=== PATIENT | female | born 1990 | race Caucasian/White ===

== ENCOUNTER 2016-05-10 21:01 | Emergency (ER) | payer MEDICAID ==
[~2016-05-10] VITALS: Ht 182.9 cm; Wt 121.8 kg
[~2016-05-10 21:01] MED LIST: DOXYCYCLINE 10100 MG PO; GOOD SENSE SLEE25 M1 PO; LOPRESSOR 225 MG/TAB; LORTAB 5/500 501 TAB PO; MELATONIN3 M1 PO; NORCO 325 MG-51 TAB PO; PHENERGAN 25 TA25 MG PO; PHENERGAN25 MG RC; PREDNISONE20 MG PO; PRENATAL 19 CH1 EACH PO; PRENATAL MVI PO; PRENATAL1 TA1 PO; VITAMIN B-625 MG PO; XANAX 0.5MG0.5 MG PO; ZOLOFT 50MG50 MG PO
[2016-05-10 21:06] VITALS: TEMP 97.7
[2016-05-10] MEDS ORDERED: NUVARING VAG RING (21:59)
[2016-05-10 22:39] VITALS: BP 138/80; PULSE 89
== END 2016-05-10 22:41 | disposition home or self-care (01) ==
LOC: COL.ER 21:01
DX: G43.909 Migraine, unspecified, not intractable, without status migrainosus (principal)
CPT/HCPCS: J1170; J1885; J2550

== ENCOUNTER 2016-06-13 00:11 | Emergency (ER) | payer MEDICAID ==
[~2016-06-13] VITALS: Ht 182.9 cm; Wt 122.7 kg
[~2016-06-13 00:11] MED LIST changes: +NUVARING VAG RING
[2016-06-13 00:12] VITALS: BP 125/67; TEMP 98
[2016-06-13] MEDS ORDERED: NORCO 325 MG-51 TAB PO (01:19)
[2016-06-13 01:35] VITALS: PULSE 87
== END 2016-06-13 01:37 | disposition home or self-care (01) ==
LOC: COL.ER 00:11
DX: S16.1XXA Strain of muscle, fascia and tendon at neck level, initial encounter (principal); S29.012A Strain of muscle and tendon of back wall of thorax, initial encounter; M25.511 Pain in right shoulder; V43.62XA Car passenger injured in collision with other type car in traffic accident, initial encounter; Y92.410 Unspecified street and highway as the place of occurrence of the external cause; R40.2412 Glasgow coma scale score 13-15, at arrival to emergency department
CPT/HCPCS: J1885; J2360

== ENCOUNTER 2016-08-14 23:34 | Emergency (ER) | payer MEDICAID ==
[~2016-08-14] VITALS: Ht 182.9 cm; Wt 127.3 kg
[2016-08-14 23:36] VITALS: TEMP 98.2
[2016-08-14] MEDS ORDERED: XANAX 0.5MG0.5 MG PO (23:39)
[2016-08-14] MEDS ORDERED: ABILIFY2 MG PO (23:39)
[2016-08-14] MEDS ORDERED: BUSPAR10 MG PO (23:39)
[2016-08-14] MEDS ORDERED: TENORMIN 2525 MG/TAB PO (23:50)
[2016-08-15] MEDS ORDERED: CEPHALEXIN500 M1 PO (00:51)
[2016-08-15 01:20] VITALS: BP 128/78; PULSE 97
== END 2016-08-15 01:21 | disposition home or self-care (01) ==
LOC: COL.ER 23:34
DX: S90.851A Superficial foreign body, right foot, initial encounter (principal); W22.8XXA Striking against or struck by other objects, initial encounter; Y92.008 Other place in unspecified non-institutional (private) residence as the place of occurrence of the external cause; F41.9 Anxiety disorder, unspecified; G43.909 Migraine, unspecified, not intractable, without status migrainosus; F43.10 Post-traumatic stress disorder, unspecified

== ENCOUNTER 2016-09-08 19:36 | Emergency (ER) | payer MEDICAID ==
[~2016-09-08] VITALS: Ht 185.4 cm; Wt 129.5 kg
[~2016-09-08 19:36] MED LIST changes: +ABILIFY2 MG PO; +BUSPAR10 MG PO; +CEPHALEXIN500 M1 PO; +TENORMIN 2525 MG/TAB PO
[2016-09-08 19:38] VITALS: TEMP 99.1
[2016-09-08] MEDS ORDERED: TOPAMAX50 MG PO (19:52)
[2016-09-08 20:13] LABS: MEAN CELL VOLUME 68 fl (80.0-100.0); MEAN CORPUSCULAR HGB CONC 30 g/dl (33.0-37.0); MEAN PLATELET VOLUME 10.7 fl (7.4-10.4); PLATELET COUNT 290 K/mm3 (130-400); RED BLOOD COUNT 4.95 M/mm3 (4.10-5.30); WHITE BLOOD COUNT 10.5 K/mm3 (4.8-10.8)
[2016-09-08 20:20] LABS: HEMATOCRIT 33.6 % (37.0-47.0); HEMOGLOBIN 9.9 g/dl (12.5-16.0); MEAN CORPUSCULAR HEMOGLOBIN 20 pg (27.0-31.0)
[2016-09-08 20:26] LABS: BASO # 0.1 (0.0-0.2); BASO % 0.6 % (0.0-2.0); EOS # 0.2 (0.0-0.7); EOS % 1.7 % (0-4.0); LYMPH # 2.4 (1.2-3.4); LYMPH % 23.3 % (20.0-51.0); MONO # 0.7 (0.1-0.6); MONO % 6.9 % (1.7-9.3)
[2016-09-08 20:28] LABS: ALBUMIN 4.1 gm/dL (3.5-5.0); BILIRUBIN,TOTAL 0.5 mg/dL (0.0-1.0); C-REACTIVE PROTEIN 1.4 mg/dL (0.0-0.9); CALCIUM 9.1 mg/dL (8.4-10.2); CREATININE, serum 0.79 mg/dL (0.52-1.25); POTASSIUM 3.2 mmol/L (3.4-5.0); TOTAL PROTEIN 7.7 gm/dL (6.4-8.2)
[2016-09-08 20:30] LABS: PH 5 (5-8); URINE APPEARANCE Cloudy; URINE BACTERIA None Seen /hpf; URINE BILIRUBIN Negative (NEGATIVE); URINE BLOOD 1+ (NEGATIVE); URINE COLOR Yellow; URINE GLUCOSE Negative (NEGATIVE); URINE KETONE Negative (NEGATIVE); URINE UROBILINOGEN Negative (NEGATIVE)
[2016-09-08] MEDS ORDERED: MACROBID 1100 MG/CAP PO (21:41)
[2016-09-08] MEDS ORDERED: PERCOCET 325 MG1 TA2 PO (21:41)
[2016-09-08 21:51] VITALS: BP 120/81; PULSE 88
== END 2016-09-08 21:52 | disposition home or self-care (01) ==
LOC: COL.ER 19:36
PROVIDERS: Emergency Medicine
DX: R10.32 Left lower quadrant pain (principal); N83.201 Unspecified ovarian cyst, right side; N39.0 Urinary tract infection, site not specified
CPT/HCPCS: J1170; J1885; J2405; J2550; J7030; Q9967

== ENCOUNTER 2016-09-15 17:26 | Emergency (ER) | payer MEDICAID ==
[~2016-09-15] VITALS: Ht 180.3 cm; Wt 127.3 kg
[~2016-09-15 17:26] MED LIST changes: +MACROBID 1100 MG/CAP PO; +PERCOCET 325 MG1 TA2 PO; +TOPAMAX50 MG PO
[2016-09-15 17:32] VITALS: TEMP 98.9
[2016-09-15 18:14] LABS: PH 6 (5-8); URINE APPEARANCE Clear; URINE BACTERIA None Seen /hpf; URINE BILIRUBIN Negative (NEGATIVE); URINE BLOOD 3+ (NEGATIVE); URINE COLOR Yellow; URINE GLUCOSE Negative (NEGATIVE); URINE KETONE Negative (NEGATIVE); URINE RBC >50 /hpf; URINE UROBILINOGEN Negative (NEGATIVE)
[2016-09-15 18:19] LABS: BASO # 0.1 (0.0-0.2); BASO % 0.7 % (0.0-2.0); EOS # 0.1 (0.0-0.7); EOS % 1.5 % (0-4.0); GRAN # 6.1 (1.4-6.5); GRAN % 66.8 % (42.2-75.2); LYMPH # 2.2 (1.2-3.4); LYMPH % 24.3 % (20.0-51.0); MEAN CELL VOLUME 68 fl (80.0-100.0); MEAN CORPUSCULAR HGB CONC 29 g/dl (33.0-37.0); MEAN PLATELET VOLUME 11.3 fl (7.4-10.4); MONO # 0.6 (0.1-0.6); MONO % 6.4 % (1.7-9.3); PLATELET COUNT 305 K/mm3 (130-400); RED BLOOD COUNT 4.82 M/mm3 (4.10-5.30); REDCELL DISTRIBUTION WIDTH-CV 17.4 % (11.5-14.5); WHITE BLOOD COUNT 9.2 K/mm3 (4.8-10.8)
[2016-09-15 18:23] LABS: HEMATOCRIT 32.8 % (37.0-47.0); HEMOGLOBIN 9.6 g/dl (12.5-16.0); MEAN CORPUSCULAR HEMOGLOBIN 20 pg (27.0-31.0)
[2016-09-15] MEDS ORDERED: ABILIFY 10MG TA10 MG PO (18:24)
[2016-09-15] MEDS ORDERED: ABILIFY 15MG TA15 MG PO (18:24)
[2016-09-15] MEDS ORDERED: BUSPAR DIVIDOSE15 MG PO (18:25)
[2016-09-15 18:29] LABS: ADJUSTED CALCIUM 9.3 mg/dL (8.4-10.2); BILIRUBIN,TOTAL 0.4 mg/dL (0.0-1.0); CALCIUM 9.3 mg/dL (8.4-10.2); CREATININE, serum 0.76 mg/dL (0.52-1.25); POTASSIUM 3.7 mmol/L (3.4-5.0); TOTAL PROTEIN 7.6 gm/dL (6.4-8.2)
[2016-09-15] MEDS ORDERED: PERCOCET 325 MG1 TA2 PO (20:25)
[2016-09-15 20:44] VITALS: BP 106/70; PULSE 88
== END 2016-09-15 20:50 | disposition home or self-care (01) ==
LOC: COL.ER 17:26
PROVIDERS: Emergency Medicine; Family Medicine
DX: N83.202 Unspecified ovarian cyst, left side (principal); N83.201 Unspecified ovarian cyst, right side; R10.31 Right lower quadrant pain; M54.5 Low back pain; Z87.59 Personal history of other complications of pregnancy, childbirth and the puerperium; Z87.891 Personal history of nicotine dependence; Z90.10 Acquired absence of unspecified breast and nipple; Z87.440 Personal history of urinary (tract) infections
CPT/HCPCS: J1170; J1885; J2270; J2405; J7030; Q9967

== ENCOUNTER 2016-10-16 15:27 | Emergency (ER) | payer MEDICAID ==
[~2016-10-16] VITALS: Ht 182.9 cm; Wt 127.7 kg
[~2016-10-16 15:27] MED LIST changes: +ABILIFY 10MG TA10 MG PO; +ABILIFY 15MG TA15 MG PO; +BUSPAR DIVIDOSE15 MG PO
[2016-10-16 15:30] VITALS: BP 124/75; TEMP 99.3
[2016-10-16 16:21] LABS: BASO % 0.5 % (0.0-2.0); EOS # 0.1 (0.0-0.7); EOS % 1.5 % (0-4.0); GRAN # 4.3 (1.4-6.5); GRAN % 73.5 % (42.2-75.2); LYMPH % 16.1 % (20.0-51.0); MEAN CELL VOLUME 68 fl (80.0-100.0); MEAN CORPUSCULAR HGB CONC 29 g/dl (33.0-37.0); MEAN PLATELET VOLUME 10.8 fl (7.4-10.4); MONO # 0.3 (0.1-0.6); MONO % 4.7 % (1.7-9.3); PLATELET COUNT 235 K/mm3 (130-400); RED BLOOD COUNT 4.72 M/mm3 (4.10-5.30); REDCELL DISTRIBUTION WIDTH-CV 16.7 % (11.5-14.5); WHITE BLOOD COUNT 5.9 K/mm3 (4.8-10.8)
[2016-10-16 16:24] LABS: HEMOGLOBIN 9.2 g/dl (12.5-16.0); MEAN CORPUSCULAR HEMOGLOBIN 19 pg (27.0-31.0)
[2016-10-16 16:51] LABS: ACETAMINOPHEN < 10 ug/mL (10-30); ALANINE AMINOTRANSFERASE 67 U/L (9-52); ALBUMIN 3.8 gm/dL (3.5-5.0); ALKALINE PHOSPHATASE 103 U/L (50-136); ANION GAP 9 mmol/L (7-16); BILIRUBIN,TOTAL 0.5 mg/dL (0.0-1.0); BLOOD UREA NITROGEN 9 mg/dL (7-17); CALCIUM 8.8 mg/dL (8.4-10.2); CARBON DIOXIDE 27 mmol/L (22-30); CHLORIDE 105 mmol/L (98-107); CREATININE, serum 0.78 mg/dL (0.52-1.25); GLUCOSE 92 mg/dL (74-106); POTASSIUM 3.8 mmol/L (3.4-5.0); SALICYLATE < 1.0 mg/dL; SODIUM 140 mmol/L (137-145); TOTAL PROTEIN 7.2 gm/dL (6.4-8.2)
[2016-10-16 17:01] LABS: AMPHETAMINE URINE NEGATIVE; BARBITURATES URINE NEGATIVE; BENZODIAZEPINES URINE NEGATIVE; BUPRENORPHINE URINE NEGATIVE; METHADONE URINE NEGATIVE; OPIATES URINE NEGATIVE; OXYCODONE URINE NEGATIVE; PHENCYCLIDINE URINE NEGATIVE; PROPOXYPHENE URINE NEGATIVE; THC CANNABINOIDS URINE NEGATIVE
[2016-10-16] MEDS ORDERED: XANAX 0.5MG0.5 MG PO (17:07)
[2016-10-16] MEDS ORDERED: FERROUS SU325 MG/TAB PO (19:43)
[2016-10-16 19:49] VITALS: PULSE 91
== END 2016-10-16 19:50 | disposition home or self-care (01) ==
LOC: COL.ER 15:27
PROVIDERS: Emergency Medicine
DX: R45.851 Suicidal ideations (principal); F32.9 Major depressive disorder, single episode, unspecified

== ENCOUNTER 2016-12-13 19:18 | Emergency (ER) | payer MEDICAID ==
[~2016-12-13] VITALS: Ht 185.4 cm; Wt 123.6 kg
[~2016-12-13 19:18] MED LIST changes: +FERROUS SU325 MG/TAB PO
[2016-12-13 19:19] VITALS: BP 116/61; TEMP 98.4
[2016-12-13 19:49] LABS: PH 8 (5-8); URINE APPEARANCE Hazy; URINE BACTERIA None Seen /hpf; URINE BILIRUBIN Negative (NEGATIVE); URINE BLOOD Negative (NEGATIVE); URINE COLOR Yellow; URINE GLUCOSE Negative (NEGATIVE); URINE KETONE Negative (NEGATIVE); URINE RBC None Seen /hpf; URINE UROBILINOGEN Negative (NEGATIVE)
[2016-12-13 20:01] LABS: BASO # 0.1 (0.0-0.2); BASO % 0.8 % (0.0-2.0); EOS # 0.3 (0.0-0.7); EOS % 3.3 % (0-4.0); GRAN # 5.1 (1.4-6.5); GRAN % 63.2 % (42.2-75.2); LYMPH # 2.1 (1.2-3.4); LYMPH % 25.6 % (20.0-51.0); MEAN CELL VOLUME 72 fl (80.0-100.0); MEAN CORPUSCULAR HGB CONC 29 g/dl (33.0-37.0); MEAN PLATELET VOLUME 11.7 fl (7.4-10.4); MONO # 0.5 (0.1-0.6); MONO % 6.6 % (1.7-9.3); PLATELET COUNT 262 K/mm3 (130-400); RED BLOOD COUNT 4.68 M/mm3 (4.10-5.30); REDCELL DISTRIBUTION WIDTH-CV 17.6 % (11.5-14.5)
[2016-12-13 20:11] LABS: ADJUSTED CALCIUM 9.3 mg/dL (8.4-10.2); ALBUMIN 3.8 gm/dL (3.5-5.0); BILIRUBIN,TOTAL 0.5 mg/dL (0.0-1.0); CALCIUM 9.1 mg/dL (8.4-10.2); CREATININE, serum 0.64 mg/dL (0.52-1.25); POTASSIUM 3.8 mmol/L (3.4-5.0); TOTAL PROTEIN 7.3 gm/dL (6.4-8.2)
[2016-12-13 20:16] LABS: HEMATOCRIT 33.8 % (37.0-47.0); HEMOGLOBIN 9.9 g/dl (12.5-16.0); MEAN CORPUSCULAR HEMOGLOBIN 21 pg (27.0-31.0)
[2016-12-13] MEDS ORDERED: NORCO 325 MG-51 TAB PO (20:56)
[2016-12-13] MEDS ORDERED: OMNICEF 300MG300 MG PO (20:56)
[2016-12-13 21:22] VITALS: PULSE 80
== END 2016-12-13 21:24 | disposition home or self-care (01) ==
LOC: COL.ER 19:18
PROVIDERS: Physician Assistant
DX: N39.0 Urinary tract infection, site not specified (principal); D50.9 Iron deficiency anemia, unspecified; F32.9 Major depressive disorder, single episode, unspecified; F41.9 Anxiety disorder, unspecified; Z87.442 Personal history of urinary calculi
CPT/HCPCS: J1170; J1885; J2550; J7030

== ENCOUNTER 2016-12-17 13:25 | Emergency (ER) | payer MEDICAID ==
[~2016-12-17] VITALS: Ht 182.9 cm; Wt 120.5 kg
[~2016-12-17 13:25] MED LIST changes: +OMNICEF 300MG300 MG PO
[2016-12-17 13:34] VITALS: BP 120/70; PULSE 77; TEMP 98
[2016-12-17 15:15] LABS: BASO # 0.1 (0.0-0.2); BASO % 0.7 % (0.0-2.0); EOS # 0.2 (0.0-0.7); EOS % 2.7 % (0-4.0); GRAN % 68.4 % (42.2-75.2); LYMPH # 1.9 (1.2-3.4); LYMPH % 21.7 % (20.0-51.0); MEAN CELL VOLUME 72 fl (80.0-100.0); MEAN CORPUSCULAR HEMOGLOBIN 21 pg (27.0-31.0); MEAN CORPUSCULAR HGB CONC 29 g/dl (33.0-37.0); MEAN PLATELET VOLUME 10.9 fl (7.4-10.4); MONO # 0.5 (0.1-0.6); MONO % 5.9 % (1.7-9.3); PLATELET COUNT 320 K/mm3 (130-400); RED BLOOD COUNT 5.12 M/mm3 (4.10-5.30); REDCELL DISTRIBUTION WIDTH-CV 17.2 % (11.5-14.5); WHITE BLOOD COUNT 8.8 K/mm3 (4.8-10.8)
[2016-12-17 15:16] LABS: HEMOGLOBIN 10.7 g/dl (12.5-16.0)
[2016-12-17] MEDS ORDERED: ADDERALL20 MG PO (15:20)
[2016-12-17] MEDS ORDERED: PROZAC 20MG20 MG PO (15:20)
[2016-12-17 15:29] LABS: ADJUSTED CALCIUM 9.3 mg/dL (8.4-10.2); ALBUMIN 4.2 gm/dL (3.5-5.0); BILIRUBIN,TOTAL 0.5 mg/dL (0.0-1.0); CALCIUM 9.5 mg/dL (8.4-10.2); CREATININE, serum 0.68 mg/dL (0.52-1.25); PH 6 (5-8); TOTAL PROTEIN 7.8 gm/dL (6.4-8.2); URINE APPEARANCE Clear; URINE BACTERIA None Seen /hpf; URINE BILIRUBIN Negative (NEGATIVE); URINE BLOOD Negative (NEGATIVE); URINE COLOR Yellow; URINE GLUCOSE Negative (NEGATIVE); URINE KETONE Negative (NEGATIVE); URINE RBC 0-2 /hpf; URINE UROBILINOGEN Negative (NEGATIVE); URINE WBC 0-2 /hpf
[2016-12-17] MEDS ORDERED: NAPROXEN 3375 MG/TAB PO (16:49)
[2016-12-17] MEDS ORDERED: FLEXERIL 1010 MG/TAB PO (16:49)
== END 2016-12-17 17:32 | disposition home or self-care (01) ==
LOC: COL.ER 13:25
PROVIDERS: Emergency Medicine
DX: R10.9 Unspecified abdominal pain (principal); Z87.442 Personal history of urinary calculi
CPT/HCPCS: J1170; J1885; J2550; J7030

== ENCOUNTER 2016-12-18 18:53 | Emergency (ER) | payer MEDICAID ==
[~2016-12-18] VITALS: Ht 182.9 cm; Wt 122.7 kg
[~2016-12-18 18:53] MED LIST changes: +ADDERALL20 MG PO; +FLEXERIL 1010 MG/TAB PO; +NAPROXEN 3375 MG/TAB PO; +PROZAC 20MG20 MG PO
[2016-12-18 18:57] VITALS: BP 111/67
[2016-12-18 20:34] VITALS: PULSE 88; TEMP 98
== END 2016-12-18 20:25 | disposition home or self-care (01) ==
LOC: COL.ER 18:53
DX: M54.5 Low back pain (principal); F41.9 Anxiety disorder, unspecified; F43.10 Post-traumatic stress disorder, unspecified; Z98.890 Other specified postprocedural states

== ENCOUNTER 2016-12-25 13:15 | Emergency (ER) | payer MEDICAID ==
[~2016-12-25] VITALS: Ht 182.9 cm; Wt 122.7 kg
[2016-12-25 13:16] VITALS: BP 122/72; PULSE 118; TEMP 98.8
[2016-12-25 13:52] LABS: COLLECTION METHOD CLEAN CATCH
[2016-12-25 14:01] LABS: BASO % 0.4 % (0.0-2.0); EOS # 0.2 (0.0-0.7); EOS % 2.3 % (0-4.0); GRAN # 6.9 (1.4-6.5); GRAN % 72.6 % (42.2-75.2); HEMATOCRIT 37.7 % (37.0-47.0); LYMPH # 1.7 (1.2-3.4); LYMPH % 17.6 % (20.0-51.0); MEAN CELL VOLUME 72 fl (80.0-100.0); MEAN CORPUSCULAR HEMOGLOBIN 21 pg (27.0-31.0); MEAN CORPUSCULAR HGB CONC 29 g/dl (33.0-37.0); MEAN PLATELET VOLUME 10.6 fl (7.4-10.4); MONO # 0.6 (0.1-0.6); MONO % 6.7 % (1.7-9.3); MUCOUS Present /lpf; PH 6 (5-8); PLATELET COUNT 310 K/mm3 (130-400); RED BLOOD COUNT 5.27 M/mm3 (4.10-5.30); SQUAMOUS EPITHELIAL 20-50 /hpf; URINE APPEARANCE Hazy; URINE BACTERIA Rare /hpf; URINE BILIRUBIN Negative (NEGATIVE); URINE BLOOD Negative (NEGATIVE); URINE COLOR Yellow; URINE GLUCOSE Negative (NEGATIVE); URINE KETONE Negative (NEGATIVE); URINE LEUKOCYTE ESTERASE Trace (NEGATIVE); URINE PROTEIN(semi-quant) 1+ (NEGATIVE); URINE RBC 0-2 /hpf; URINE UROBILINOGEN Negative (NEGATIVE); URINE WBC 0-2 /hpf; WHITE BLOOD COUNT 9.6 K/mm3 (4.8-10.8)
[2016-12-25 14:04] LABS: HEMOGLOBIN 11.1 g/dl (12.5-16.0)
[2016-12-25 14:17] LABS: ADJUSTED CALCIUM 8.9 mg/dL (8.4-10.2); ALBUMIN 4.2 gm/dL (3.5-5.0); BILIRUBIN,TOTAL 0.6 mg/dL (0.0-1.0); C-REACTIVE PROTEIN 1.7 mg/dL (0.0-0.9); CALCIUM 9.1 mg/dL (8.4-10.2); CREATININE, serum 0.64 mg/dL (0.52-1.25); POTASSIUM 3.9 mmol/L (3.4-5.0); TOTAL PROTEIN 8.1 gm/dL (6.4-8.2)
== END 2016-12-25 15:11 | disposition left against medical advice (07) ==
LOC: COL.ER 13:15
PROVIDERS: Emergency Medicine
DX: R10.31 Right lower quadrant pain (principal); F17.210 Nicotine dependence, cigarettes, uncomplicated; Z87.442 Personal history of urinary calculi; Z32.02 Encounter for pregnancy test, result negative
CPT/HCPCS: J1200; J1630; J2550; J7030

== ENCOUNTER 2016-12-26 09:31 | Emergency (ER) | payer MEDICAID ==
[~2016-12-26] VITALS: Ht 182.9 cm; Wt 122.7 kg
[2016-12-26 09:34] VITALS: BP 118/64; TEMP 97.5
[2016-12-26 10:15] LABS: BASO % 0.3 % (0.0-2.0); EOS # 0.1 (0.0-0.7); EOS % 1.3 % (0-4.0); GRAN # 6.2 (1.4-6.5); GRAN % 79.6 % (42.2-75.2); LYMPH # 0.9 (1.2-3.4); LYMPH % 10.9 % (20.0-51.0); MEAN CELL VOLUME 72 fl (80.0-100.0); MEAN CORPUSCULAR HGB CONC 30 g/dl (33.0-37.0); MEAN PLATELET VOLUME 11.1 fl (7.4-10.4); MONO # 0.6 (0.1-0.6); MONO % 7.3 % (1.7-9.3); PLATELET COUNT 293 K/mm3 (130-400); RED BLOOD COUNT 5.15 M/mm3 (4.10-5.30); WHITE BLOOD COUNT 7.8 K/mm3 (4.8-10.8)
[2016-12-26 10:16] LABS: HEMATOCRIT 36.8 % (37.0-47.0); HEMOGLOBIN 10.9 g/dl (12.5-16.0); MEAN CORPUSCULAR HEMOGLOBIN 21 pg (27.0-31.0)
[2016-12-26 10:21] LABS: ADJUSTED CALCIUM 8.8 mg/dL (8.4-10.2); BILIRUBIN,TOTAL 0.9 mg/dL (0.0-1.0); CALCIUM 8.8 mg/dL (8.4-10.2); CREATININE, serum 0.63 mg/dL (0.52-1.25); TOTAL PROTEIN 7.6 gm/dL (6.4-8.2)
[2016-12-26 13:42] VITALS: PULSE 122
== END 2016-12-26 13:41 | disposition home or self-care (01) ==
LOC: COL.ER 09:31
PROVIDERS: Physician Assistant
DX: N83.202 Unspecified ovarian cyst, left side (principal); N83.201 Unspecified ovarian cyst, right side; F41.9 Anxiety disorder, unspecified; F43.10 Post-traumatic stress disorder, unspecified; F17.210 Nicotine dependence, cigarettes, uncomplicated; Z98.890 Other specified postprocedural states
CPT/HCPCS: J1200; J1630; J2270; J7030

== ENCOUNTER 2017-01-30 19:31 | Emergency (ER) | payer MEDICAID ==
[~2017-01-30] VITALS: Ht 185.4 cm; Wt 131.8 kg
[2017-01-30 19:39] VITALS: TEMP 98.3
[2017-01-30 21:03] VITALS: BP 121/87; PULSE 74
== END 2017-01-30 21:20 | disposition home or self-care (01) ==
LOC: COL.ER 19:31
DX: G43.909 Migraine, unspecified, not intractable, without status migrainosus (principal); F41.9 Anxiety disorder, unspecified; F43.10 Post-traumatic stress disorder, unspecified; F17.210 Nicotine dependence, cigarettes, uncomplicated; Z98.890 Other specified postprocedural states
CPT/HCPCS: J1200; J1885; J2765; J7030

== ENCOUNTER 2017-03-02 20:09 | Emergency (ER) | payer MEDICAID ==
[~2017-03-02] VITALS: Ht 182.9 cm; Wt 131.8 kg
[2017-03-02 20:11] VITALS: TEMP 98.4
[2017-03-02] MEDS ORDERED: XANAX 1MG1 MG PO (20:17)
[2017-03-02] MEDS ORDERED: AMBIEN 5MG TABLE5 MG PO (20:17)
[2017-03-02 20:41] LABS: BASO # 0.1 (0.0-0.2); BASO % 0.7 % (0.0-2.0); EOS # 0.2 (0.0-0.7); EOS % 2.2 % (0-4.0); GRAN # 5.1 (1.4-6.5); GRAN % 62.1 % (42.2-75.2); LYMPH # 2.4 (1.2-3.4); LYMPH % 28.7 % (20.0-51.0); MEAN CORPUSCULAR HGB CONC 28 g/dl (33.0-37.0); MEAN PLATELET VOLUME 10.6 fl (7.4-10.4); MONO # 0.5 (0.1-0.6); MONO % 5.8 % (1.7-9.3); PLATELET COUNT 253 K/mm3 (130-400); RED BLOOD COUNT 4.89 M/mm3 (4.10-5.30); REDCELL DISTRIBUTION WIDTH-CV 18.2 % (11.5-14.5)
[2017-03-02 20:43] LABS: HEMATOCRIT 33.9 % (37.0-47.0); HEMOGLOBIN 9.6 g/dl (12.5-16.0); MEAN CELL VOLUME 69 fl (80.0-100.0); MEAN CORPUSCULAR HEMOGLOBIN 20 pg (27.0-31.0)
[2017-03-02 20:52] LABS: ACETAMINOPHEN < 10 ug/mL (10-30); ALANINE AMINOTRANSFERASE 48 U/L (9-52); ALBUMIN 4.3 gm/dL (3.5-5.0); ALCOHOL(ethanol),MEDICAL < 10 mg/dL; ALKALINE PHOSPHATASE 132 U/L (50-136); ANION GAP 10 mmol/L (7-16); AST,SGOT 28 U/L (15-37); BILIRUBIN,TOTAL 0.3 mg/dL (0.0-1.0); BLOOD UREA NITROGEN 14 mg/dL (7-17); CALCIUM 9.5 mg/dL (8.4-10.2); CARBON DIOXIDE 28 mmol/L (22-30); CHLORIDE 103 mmol/L (98-107); CREATININE, serum 0.88 mg/dL (0.52-1.25); GLUCOSE 95 mg/dL (74-106); LIPASE 61 U/L (23-300); POTASSIUM 3.6 mmol/L (3.4-5.0); SALICYLATE < 1.0 mg/dL; SODIUM 140 mmol/L (137-145); TOTAL PROTEIN 7.8 gm/dL (6.4-8.2)
[2017-03-02] MEDS ORDERED: NAPROXEN 3375 MG/TAB PO (20:52)
[2017-03-02 21:00] LABS: COLLECTION METHOD CLEAN CATCH
[2017-03-02 21:19] LABS: MUCOUS Present /lpf; PH 6 (5-8); SQUAMOUS EPITHELIAL 20-50 /hpf; URINE APPEARANCE Hazy; URINE BACTERIA Rare /hpf; URINE BILIRUBIN Negative (NEGATIVE); URINE BLOOD Negative (NEGATIVE); URINE COLOR Yellow; URINE GLUCOSE Negative (NEGATIVE); URINE KETONE Negative (NEGATIVE); URINE LEUKOCYTE ESTERASE 2+ (NEGATIVE); URINE NITRATE Negative (NEGATIVE); URINE PROTEIN(semi-quant) 1+ (NEGATIVE); URINE RBC 0-2 /hpf; URINE UROBILINOGEN >=4.0 mg/dL (NEGATIVE)
[2017-03-02 21:25] LABS: TRICYCLIC ANTIDEPRESS URINE NEGATIVE
[2017-03-03 13:42] VITALS: BP 107/56; PULSE 90
== END 2017-03-03 14:32 | disposition short-term general hospital (02) ==
LOC: COL.ER 20:09
PROVIDERS: Emergency Medicine
DX: T42.4X2A Poisoning by benzodiazepines, intentional self-harm, initial encounter (principal); T39.312A Poisoning by propionic acid derivatives, intentional self-harm, initial encounter; F32.9 Major depressive disorder, single episode, unspecified; F43.10 Post-traumatic stress disorder, unspecified; F17.210 Nicotine dependence, cigarettes, uncomplicated
CPT/HCPCS: J2405; J2550; J7030

== ENCOUNTER 2017-03-09 08:40 | Emergency (ER) | payer MEDICAID ==
[~2017-03-09] VITALS: Ht 182.9 cm; Wt 131.8 kg
[~2017-03-09 08:40] MED LIST changes: +AMBIEN 5MG TABLE5 MG PO; +XANAX 1MG1 MG PO
[2017-03-09 08:50] VITALS: TEMP 98.3
[2017-03-09 10:34] VITALS: BP 118/85; PULSE 92
== END 2017-03-09 10:34 | disposition home or self-care (01) ==
LOC: COL.ER 08:40
DX: O99.351 Diseases of the nervous system complicating pregnancy, first trimester (principal); G43.909 Migraine, unspecified, not intractable, without status migrainosus; O99.341 Other mental disorders complicating pregnancy, first trimester; F32.9 Major depressive disorder, single episode, unspecified; Z3A.00 Weeks of gestation of pregnancy not specified
CPT/HCPCS: J1200; J2765; J7030

== ENCOUNTER 2017-03-18 12:30 | Emergency (ER) | payer MEDICAID ==
[~2017-03-18] VITALS: Ht 182.9 cm; Wt 131.8 kg
[2017-03-18 12:32] VITALS: TEMP 99.1
[2017-03-18 13:00] LABS: COLLECTION METHOD CLEAN CATCH
[2017-03-18 13:06] LABS: BASO # 0.1 (0.0-0.2); BASO % 0.9 % (0.0-2.0); EOS # 0.2 (0.0-0.7); EOS % 2.7 % (0-4.0); GRAN # 4.5 (1.4-6.5); GRAN % 64.5 % (42.2-75.2); HEMATOCRIT 35.6 % (37.0-47.0); HEMOGLOBIN 10.2 g/dl (12.5-16.0); LYMPH # 1.9 (1.2-3.4); LYMPH % 26.7 % (20.0-51.0); MEAN CELL VOLUME 69 fl (80.0-100.0); MEAN CORPUSCULAR HEMOGLOBIN 20 pg (27.0-31.0); MEAN CORPUSCULAR HGB CONC 29 g/dl (33.0-37.0); MEAN PLATELET VOLUME 10.8 fl (7.4-10.4); MONO # 0.3 (0.1-0.6); MONO % 4.8 % (1.7-9.3); PLATELET COUNT 306 K/mm3 (130-400); REDCELL DISTRIBUTION WIDTH-CV 18.8 % (11.5-14.5)
[2017-03-18 13:08] LABS: MUCOUS Present /lpf; PH 6 (5-8); URINE APPEARANCE Hazy; URINE BACTERIA None Seen /hpf; URINE BILIRUBIN Negative (NEGATIVE); URINE BLOOD Negative (NEGATIVE); URINE COLOR Yellow; URINE GLUCOSE Negative (NEGATIVE); URINE KETONE Negative (NEGATIVE); URINE LEUKOCYTE ESTERASE Trace (NEGATIVE); URINE NITRATE Negative (NEGATIVE); URINE PROTEIN(semi-quant) Negative (NEGATIVE); URINE RBC 0-2 /hpf
[2017-03-18 13:17] LABS: ALBUMIN 3.9 gm/dL (3.5-5.0); BILIRUBIN,TOTAL 0.5 mg/dL (0.0-1.0); CALCIUM 8.7 mg/dL (8.4-10.2); CREATININE, serum 0.57 mg/dL (0.52-1.25); POTASSIUM 3.5 mmol/L (3.4-5.0); TOTAL PROTEIN 7.2 gm/dL (6.4-8.2)
[2017-03-18] MEDS ORDERED: PHENERGAN 25 TA25 MG PO (13:57)
[2017-03-18 14:07] VITALS: BP 133/68; PULSE 88
== END 2017-03-18 14:07 | disposition home or self-care (01) ==
LOC: COL.ER 12:30
PROVIDERS: Family Medicine
DX: O21.9 Vomiting of pregnancy, unspecified (principal); O99.351 Diseases of the nervous system complicating pregnancy, first trimester; G43.909 Migraine, unspecified, not intractable, without status migrainosus; O99.341 Other mental disorders complicating pregnancy, first trimester; F32.9 Major depressive disorder, single episode, unspecified; Z3A.00 Weeks of gestation of pregnancy not specified
CPT/HCPCS: J7030

== ENCOUNTER 2017-03-23 22:54 | Emergency (ER) | payer MEDICAID ==
[~2017-03-23] VITALS: Ht 185.4 cm; Wt 136.4 kg
[2017-03-23 23:02] VITALS: TEMP 98.3
[2017-03-23] MEDS ORDERED: PROZAC40 MG PO (23:06)
[2017-03-23 23:41] LABS: COLLECTION METHOD CLEAN CATCH
[2017-03-23 23:48] LABS: BASO % 0.5 % (0.0-2.0); EOS # 0.3 (0.0-0.7); EOS % 3.4 % (0-4.0); GRAN # 5.4 (1.4-6.5); GRAN % 65.1 % (42.2-75.2); LYMPH # 1.9 (1.2-3.4); MEAN CELL VOLUME 68 fl (80.0-100.0); MEAN CORPUSCULAR HGB CONC 29 g/dl (33.0-37.0); MEAN PLATELET VOLUME 10.8 fl (7.4-10.4); MONO # 0.6 (0.1-0.6); MONO % 7.5 % (1.7-9.3); PLATELET COUNT 269 K/mm3 (130-400); RED BLOOD COUNT 4.68 M/mm3 (4.10-5.30); REDCELL DISTRIBUTION WIDTH-CV 18.6 % (11.5-14.5)
[2017-03-23 23:49] LABS: ALBUMIN 3.6 gm/dL (3.5-5.0); BILIRUBIN,TOTAL 0.3 mg/dL (0.0-1.0); CALCIUM 8.6 mg/dL (8.4-10.2); CREATININE, serum 0.53 mg/dL (0.52-1.25); POTASSIUM 3.4 mmol/L (3.4-5.0); TOTAL PROTEIN 6.9 gm/dL (6.4-8.2)
[2017-03-23 23:50] LABS: HEMOGLOBIN 9.3 g/dl (12.5-16.0); MEAN CORPUSCULAR HEMOGLOBIN 20 pg (27.0-31.0)
[2017-03-23 23:51] LABS: PH 6 (5-8); SQUAMOUS EPITHELIAL 0-2 /hpf; URINE APPEARANCE Clear; URINE BACTERIA None Seen /hpf; URINE BILIRUBIN Negative (NEGATIVE); URINE BLOOD Negative (NEGATIVE); URINE COLOR Yellow; URINE GLUCOSE Negative (NEGATIVE); URINE KETONE Negative (NEGATIVE); URINE LEUKOCYTE ESTERASE Negative (NEGATIVE); URINE NITRATE Negative (NEGATIVE); URINE PROTEIN(semi-quant) Negative (NEGATIVE); URINE RBC 0-2 /hpf; URINE UROBILINOGEN Negative (NEGATIVE)
[2017-03-24] LABS: INFLUENZA A NEGATIVE; INFLUENZA B NEGATIVE
[2017-03-24] MEDS ORDERED: PHENERGAN 25 TA25 MG PO (01:59)
[2017-03-24] MEDS ORDERED: TAMIFLU 75MG75 MG PO (02:36)
[2017-03-24 02:52] VITALS: BP 119/76; PULSE 100
[2017-03-24] MEDS ORDERED: DICLEGIS PO (03:03)
== END 2017-03-24 03:11 | disposition home or self-care (01) ==
LOC: COL.ER 22:54
PROVIDERS: Emergency Medicine
DX: O20.0 Threatened abortion (principal); O99.011 Anemia complicating pregnancy, first trimester; Z3A.01 Less than 8 weeks gestation of pregnancy
CPT/HCPCS: J2550; J7030

== ENCOUNTER 2017-04-11 18:13 | Emergency (ER) | payer MEDICAID ==
[~2017-04-11] VITALS: Ht 185.4 cm; Wt 121.8 kg
[~2017-04-11 18:13] MED LIST changes: +DICLEGIS PO; +PROZAC40 MG PO; +TAMIFLU 75MG75 MG PO
[2017-04-11 18:20] VITALS: TEMP 98.6
[2017-04-11 19:02] LABS: COLLECTION METHOD CLEAN CATCH
[2017-04-11 19:09] LABS: BASO % 0.3 % (0.0-2.0); EOS # 0.1 (0.0-0.7); EOS % 1.1 % (0-4.0); GRAN # 7.6 (1.4-6.5); GRAN % 75.1 % (42.2-75.2); LYMPH # 1.8 (1.2-3.4); LYMPH % 17.4 % (20.0-51.0); MEAN CELL VOLUME 68 fl (80.0-100.0); MEAN CORPUSCULAR HGB CONC 29 g/dl (33.0-37.0); MEAN PLATELET VOLUME 11.3 fl (7.4-10.4); MONO # 0.6 (0.1-0.6); MONO % 5.6 % (1.7-9.3); PLATELET COUNT 322 K/mm3 (130-400); RED BLOOD COUNT 5.25 M/mm3 (4.10-5.30); REDCELL DISTRIBUTION WIDTH-CV 18.9 % (11.5-14.5)
[2017-04-11 19:10] LABS: HEMATOCRIT 35.9 % (37.0-47.0); HEMOGLOBIN 10.3 g/dl (12.5-16.0); MEAN CORPUSCULAR HEMOGLOBIN 20 pg (27.0-31.0)
[2017-04-11] MEDS ORDERED: ZOFRAN 4MG T4 MG/TAB PO (19:14)
[2017-04-11 19:17] LABS: BILIRUBIN,TOTAL 0.4 mg/dL (0.0-1.0); CALCIUM 9.6 mg/dL (8.4-10.2); CREATININE, serum 0.66 mg/dL (0.52-1.25); POTASSIUM 3.8 mmol/L (3.4-5.0); TOTAL PROTEIN 7.7 gm/dL (6.4-8.2)
[2017-04-11 19:19] VITALS: BP 122/76
[2017-04-11 19:27] LABS: MUCOUS Present /lpf; PH 6 (5-8); URINE APPEARANCE Clear; URINE BACTERIA Rare /hpf; URINE BILIRUBIN Negative (NEGATIVE); URINE BLOOD Negative (NEGATIVE); URINE COLOR Yellow; URINE GLUCOSE Negative (NEGATIVE); URINE KETONE Negative (NEGATIVE); URINE LEUKOCYTE ESTERASE Negative (NEGATIVE); URINE NITRATE Negative (NEGATIVE); URINE PROTEIN(semi-quant) Negative (NEGATIVE); URINE RBC 0-2 /hpf
[2017-04-11 19:56] VITALS: PULSE 96
== END 2017-04-11 20:07 | disposition home or self-care (01) ==
LOC: COL.ER 18:13
PROVIDERS: Emergency Medicine
DX: O9A.211 Injury, poisoning and certain other consequences of external causes complicating pregnancy, first trimester (principal); S00.93XA Contusion of unspecified part of head, initial encounter; R40.2412 Glasgow coma scale score 13-15, at arrival to emergency department; Z3A.08 8 weeks gestation of pregnancy; W10.9XXA Fall (on) (from) unspecified stairs and steps, initial encounter; Y92.009 Unspecified place in unspecified non-institutional (private) residence as the place of occurrence of the external cause
CPT/HCPCS: J7030

== ENCOUNTER 2017-04-20 19:38 | Emergency (ER) | payer MEDICAID ==
[~2017-04-20] VITALS: Ht 182.9 cm; Wt 127.3 kg
[~2017-04-20 19:38] MED LIST changes: +ZOFRAN 4MG T4 MG/TAB PO
[2017-04-20 19:44] VITALS: BP 119/72; TEMP 98.6
[2017-04-20] MEDS ORDERED: PRENATAL PO (19:49)
[2017-04-20 21:06] VITALS: PULSE 95
== END 2017-04-20 21:08 | disposition home or self-care (01) ==
LOC: COL.ER 19:38
DX: O26.891 Other specified pregnancy related conditions, first trimester (principal); R10.2 Pelvic and perineal pain; O99.341 Other mental disorders complicating pregnancy, first trimester; F43.10 Post-traumatic stress disorder, unspecified; F32.9 Major depressive disorder, single episode, unspecified; Z98.890 Other specified postprocedural states; Z87.891 Personal history of nicotine dependence; Z3A.10 10 weeks gestation of pregnancy

== ENCOUNTER 2017-05-27 19:27 | Emergency (ER) | payer MEDICAID ==
[~2017-05-27] VITALS: Ht 182.9 cm; Wt 131.8 kg
[~2017-05-27 19:27] MED LIST changes: +PRENATAL PO
[2017-05-27 19:28] VITALS: TEMP 98
[2017-05-27 19:57] VITALS: BP 128/69; PULSE 92
== END 2017-05-27 20:04 | disposition home or self-care (01) ==
LOC: COL.ER 19:27
DX: O20.0 Threatened abortion (principal); O99.332 Smoking (tobacco) complicating pregnancy, second trimester; O99.342 Other mental disorders complicating pregnancy, second trimester; O99.352 Diseases of the nervous system complicating pregnancy, second trimester; G43.909 Migraine, unspecified, not intractable, without status migrainosus; F32.9 Major depressive disorder, single episode, unspecified; F43.10 Post-traumatic stress disorder, unspecified; Z3A.15 15 weeks gestation of pregnancy

== ENCOUNTER 2017-05-30 18:34 | Emergency (ER) | payer MEDICAID ==
[~2017-05-30] VITALS: Ht 182.9 cm; Wt 130.0 kg
[2017-05-30 18:38] VITALS: BP 131/76; PULSE 105; TEMP 98
[2017-05-30] MEDS ORDERED: FLAGYL500 MG PO (20:16)
== END 2017-05-30 20:33 | disposition home or self-care (01) ==
LOC: COL.ER 18:34
DX: O23.592 Infection of other part of genital tract in pregnancy, second trimester (principal); N76.0 Acute vaginitis; O26.892 Other specified pregnancy related conditions, second trimester; R10.2 Pelvic and perineal pain; O99.352 Diseases of the nervous system complicating pregnancy, second trimester; G43.909 Migraine, unspecified, not intractable, without status migrainosus; O99.342 Other mental disorders complicating pregnancy, second trimester; F41.9 Anxiety disorder, unspecified; F43.10 Post-traumatic stress disorder, unspecified; Z3A.15 15 weeks gestation of pregnancy; Z87.891 Personal history of nicotine dependence; Z88.0 Allergy status to penicillin; Z98.890 Other specified postprocedural states

== ENCOUNTER 2017-06-13 02:33 | Emergency (ER) | payer MEDICAID ==
[~2017-06-13] VITALS: Ht 185.4 cm; Wt 131.8 kg
[~2017-06-13 02:33] MED LIST changes: +FLAGYL500 MG PO
[2017-06-13 02:38] VITALS: TEMP 98
[2017-06-13 02:53] LABS: BASO # 0.1 (0.0-0.2); BASO % 0.6 % (0.0-2.0); EOS # 0.1 (0.0-0.7); EOS % 1.5 % (0-4.0); GRAN # 6.1 (1.4-6.5); GRAN % 65.1 % (42.2-75.2); LYMPH # 2.4 (1.2-3.4); LYMPH % 25.7 % (20.0-51.0); MEAN CELL VOLUME 66 fl (80.0-100.0); MEAN CORPUSCULAR HGB CONC 30 g/dl (33.0-37.0); MEAN PLATELET VOLUME 11.5 fl (7.4-10.4); MONO # 0.6 (0.1-0.6); MONO % 6.6 % (1.7-9.3); PLATELET COUNT 271 K/mm3 (130-400); REDCELL DISTRIBUTION WIDTH-CV 17.9 % (11.5-14.5)
[2017-06-13 02:58] LABS: HEMATOCRIT 32.9 % (37.0-47.0); HEMOGLOBIN 9.8 g/dl (12.5-16.0); MEAN CORPUSCULAR HEMOGLOBIN 20 pg (27.0-31.0)
[2017-06-13 03:04] LABS: ALBUMIN 3.3 gm/dL (3.5-5.0); BILIRUBIN,TOTAL 0.3 mg/dL (0.0-1.0); CALCIUM 9.2 mg/dL (8.4-10.2); CREATININE, serum 0.54 mg/dL (0.52-1.25); PHOSPHOROUS 4.8 mg/dL (2.5-4.5); POTASSIUM 3.6 mmol/L (3.4-5.0); TOTAL PROTEIN 7.3 gm/dL (6.4-8.2)
[2017-06-13 03:11] LABS: COLLECTION METHOD CLEAN CATCH
[2017-06-13 03:25] LABS: MAGNESIUM 1.6 mg/dL (1.6-2.3)
[2017-06-13 03:30] LABS: AMORPHOUS CRYSTAL Present /uL; MUCOUS Present /lpf; PH 7 (5-8); SQUAMOUS EPITHELIAL >50 /hpf; URINE APPEARANCE Cloudy; URINE BACTERIA None Seen /hpf; URINE BILIRUBIN Negative (NEGATIVE); URINE BLOOD Negative (NEGATIVE); URINE COLOR Yellow; URINE GLUCOSE Negative (NEGATIVE); URINE KETONE Negative (NEGATIVE); URINE LEUKOCYTE ESTERASE 3+ (NEGATIVE); URINE NITRATE Negative (NEGATIVE); URINE PROTEIN(semi-quant) 1+ (NEGATIVE); URINE UROBILINOGEN Negative (NEGATIVE)
[2017-06-13] MEDS ORDERED: PHENERGAN 25 TA25 MG PO (04:09)
[2017-06-13 04:31] LABS: COLLECTION METHOD CLEAN CATCH
[2017-06-13 04:39] LABS: PH 7 (5-8); SQUAMOUS EPITHELIAL 0-2 /hpf; URINE APPEARANCE Clear; URINE BACTERIA None Seen /hpf; URINE BILIRUBIN Negative (NEGATIVE); URINE BLOOD Negative (NEGATIVE); URINE COLOR Colorless; URINE GLUCOSE Negative (NEGATIVE); URINE KETONE Negative (NEGATIVE); URINE LEUKOCYTE ESTERASE Trace (NEGATIVE); URINE NITRATE Negative (NEGATIVE); URINE PROTEIN(semi-quant) Negative (NEGATIVE); URINE RBC 0-2 /hpf; URINE UROBILINOGEN Negative (NEGATIVE)
[2017-06-13 05:05] VITALS: BP 143/92; PULSE 82
== END 2017-06-13 05:05 | disposition home or self-care (01) ==
LOC: COL.ER 02:33
PROVIDERS: Emergency Medicine
DX: O99.89 Other specified diseases and conditions complicating pregnancy, childbirth and the puerperium (principal); R51 Headache; O21.9 Vomiting of pregnancy, unspecified; Z86.69 Personal history of other diseases of the nervous system and sense organs; Z98.890 Other specified postprocedural states; Z3A.17 17 weeks gestation of pregnancy
CPT/HCPCS: J1200; J2550; J7030

== ENCOUNTER 2017-07-26 22:55 | Outpatient (CLI) | payer MEDICAID ==
[~2017-07-26] VITALS: Ht 185.4 cm; Wt 131.8 kg
[2017-07-27 00:10] VITALS: BP 115/71; PULSE 106
[2017-07-27 00:24] VITALS: BP 123/78; PULSE 109; TEMP 98.1
[2017-07-27 00:40] VITALS: BP 120/79; PULSE 101
[2017-07-27 01:00] VITALS: BP 126/88; PULSE 99
== END 2017-07-27 01:15 | disposition home or self-care (01) ==
LOC: LDRO 22:55
DX: O62.9 Abnormality of forces of labor, unspecified (principal); O99.89 Other specified diseases and conditions complicating pregnancy, childbirth and the puerperium; R10.9 Unspecified abdominal pain; Z3A.23 23 weeks gestation of pregnancy

== ENCOUNTER 2017-08-08 09:47 | Emergency (ER) | payer MEDICAID ==
[~2017-08-08] VITALS: Ht 185.4 cm; Wt 132.9 kg
[2017-08-08 09:48] VITALS: TEMP 97.7
[2017-08-08 10:22] LABS: COLLECTION METHOD CLEAN CATCH
[2017-08-08 10:36] LABS: MUCOUS Present /lpf; PH 6 (5-8); SQUAMOUS EPITHELIAL 20-50 /hpf; URINE APPEARANCE Hazy; URINE BACTERIA None Seen /hpf; URINE BILIRUBIN Negative (NEGATIVE); URINE BLOOD Negative (NEGATIVE); URINE COLOR Yellow; URINE GLUCOSE Negative (NEGATIVE); URINE KETONE Negative (NEGATIVE); URINE LEUKOCYTE ESTERASE Trace (NEGATIVE); URINE NITRATE Negative (NEGATIVE); URINE PROTEIN(semi-quant) Negative (NEGATIVE); URINE RBC 0-2 /hpf; URINE UROBILINOGEN Negative (NEGATIVE)
[2017-08-08 10:52] LABS: BASO % 0.4 % (0.0-2.0); EOS # 0.1 (0.0-0.7); EOS % 0.8 % (0-4.0); GRAN % 77.3 % (42.2-75.2); LYMPH # 1.6 (1.2-3.4); LYMPH % 15.2 % (20.0-51.0); MEAN CELL VOLUME 66 fl (80.0-100.0); MEAN CORPUSCULAR HGB CONC 29 g/dl (33.0-37.0); MEAN PLATELET VOLUME 10.9 fl (7.4-10.4); MONO # 0.6 (0.1-0.6); MONO % 5.5 % (1.7-9.3); PLATELET COUNT 259 K/mm3 (130-400); RED BLOOD COUNT 4.31 M/mm3 (4.10-5.30); REDCELL DISTRIBUTION WIDTH-CV 18.6 % (11.5-14.5)
[2017-08-08 10:54] LABS: HEMATOCRIT 28.5 % (37.0-47.0); HEMOGLOBIN 8.3 g/dl (12.5-16.0); MEAN CORPUSCULAR HEMOGLOBIN 19 pg (27.0-31.0)
[2017-08-08 11:06] LABS: ALBUMIN 2.9 gm/dL (3.5-5.0); BILIRUBIN,TOTAL 0.3 mg/dL (0.0-1.0); CALCIUM 8.5 mg/dL (8.4-10.2); CREATININE, serum 0.49 mg/dL (0.52-1.25); POTASSIUM 3.6 mmol/L (3.4-5.0); TOTAL PROTEIN 6.3 gm/dL (6.4-8.2)
[2017-08-08 11:37] VITALS: BP 125/89; PULSE 108
== END 2017-08-08 11:38 | disposition home or self-care (01) ==
LOC: COL.ER 09:47
PROVIDERS: Physician Assistant Medical
DX: O99.89 Other specified diseases and conditions complicating pregnancy, childbirth and the puerperium (principal); O99.332 Smoking (tobacco) complicating pregnancy, second trimester; O99.342 Other mental disorders complicating pregnancy, second trimester; R55 Syncope and collapse; G43.909 Migraine, unspecified, not intractable, without status migrainosus; F17.210 Nicotine dependence, cigarettes, uncomplicated; Z88.0 Allergy status to penicillin; Z98.890 Other specified postprocedural states; Z3A.26 26 weeks gestation of pregnancy

== ENCOUNTER 2017-09-02 21:01 | Outpatient (CLI) | payer MEDICAID ==
[~2017-09-02] VITALS: Ht 185.4 cm; Wt 134.5 kg
[2017-09-02 21:20] VITALS: BP 119/56; PULSE 117; TEMP 98.1
[2017-09-02 21:30] VITALS: BP 120/56; PULSE 112
[2017-09-02 21:34] VITALS: BP 120/56; PULSE 112; TEMP 98.1
[2017-09-02] MEDS ORDERED: WELLBUTRIN SR150 M1 PO (21:40)
== END 2017-09-02 22:20 | disposition home or self-care (01) ==
LOC: LDRO 21:01
DX: O62.8 Other abnormalities of forces of labor (principal); Z3A.29 29 weeks gestation of pregnancy

== ENCOUNTER 2017-09-09 12:44 | Emergency (ER) | payer MEDICAID ==
[~2017-09-09] VITALS: Ht 182.9 cm; Wt 131.8 kg
[~2017-09-09 12:44] MED LIST changes: +WELLBUTRIN SR150 M1 PO
[2017-09-09 12:47] VITALS: TEMP 98.1
[2017-09-09] MEDS ORDERED: PHENERGAN 25 TA25 MG PO (12:50)
[2017-09-09 13:15] LABS: COLLECTION METHOD CLEAN CATCH
[2017-09-09 13:24] LABS: AMORPHOUS CRYSTAL Present /uL; MUCOUS Present /lpf; PH 7 (5-8); SQUAMOUS EPITHELIAL 20-50 /hpf; URINE APPEARANCE Cloudy; URINE BACTERIA None Seen /hpf; URINE BILIRUBIN Negative (NEGATIVE); URINE BLOOD Negative (NEGATIVE); URINE COLOR Yellow; URINE GLUCOSE Negative (NEGATIVE); URINE KETONE Negative (NEGATIVE); URINE LEUKOCYTE ESTERASE 2+ (NEGATIVE); URINE NITRATE Negative (NEGATIVE); URINE PROTEIN(semi-quant) Negative (NEGATIVE); URINE RBC 0-2 /hpf
[2017-09-09 13:28] LABS: ALBUMIN 3.1 gm/dL (3.5-5.0); BILIRUBIN,TOTAL 0.4 mg/dL (0.0-1.0); CALCIUM 8.7 mg/dL (8.4-10.2); CREATININE, serum 0.45 mg/dL (0.52-1.25); POTASSIUM 3.8 mmol/L (3.4-5.0); TOTAL PROTEIN 6.6 gm/dL (6.4-8.2)
[2017-09-09 13:35] LABS: BASO % 0.3 % (0.0-2.0); EOS # 0.1 (0.0-0.7); EOS % 0.5 % (0-4.0); GRAN % 74.9 % (42.2-75.2); LYMPH # 1.9 (1.2-3.4); LYMPH % 16.1 % (20.0-51.0); MEAN CELL VOLUME 66 fl (80.0-100.0); MEAN CORPUSCULAR HGB CONC 29 g/dl (33.0-37.0); MEAN PLATELET VOLUME 10.8 fl (7.4-10.4); MONO # 0.8 (0.1-0.6); MONO % 6.9 % (1.7-9.3); PLATELET COUNT 277 K/mm3 (130-400); RED BLOOD COUNT 4.33 M/mm3 (4.10-5.30); REDCELL DISTRIBUTION WIDTH-CV 19.6 % (11.5-14.5)
[2017-09-09 13:37] LABS: HEMATOCRIT 28.4 % (37.0-47.0); HEMOGLOBIN 8.1 g/dl (12.5-16.0); MEAN CORPUSCULAR HEMOGLOBIN 19 pg (27.0-31.0)
[2017-09-09 15:31] VITALS: BP 131/81
[2017-09-09] MEDS ORDERED: MACROBID 1100 MG/CAP PO (17:18)
[2017-09-09 17:31] VITALS: PULSE 98
== END 2017-09-09 17:33 | disposition home or self-care (01) ==
LOC: COL.ER 12:44
PROVIDERS: Emergency Medicine
DX: O23.43 Unspecified infection of urinary tract in pregnancy, third trimester (principal); O26.893 Other specified pregnancy related conditions, third trimester; R55 Syncope and collapse; O99.343 Other mental disorders complicating pregnancy, third trimester; F41.9 Anxiety disorder, unspecified; O99.333 Smoking (tobacco) complicating pregnancy, third trimester; Z3A.30 30 weeks gestation of pregnancy
CPT/HCPCS: J7030

== ENCOUNTER 2017-11-11 05:25 | Inpatient (IN) | payer MEDICAID ==
[~2017-11-11] VITALS: Ht 185.4 cm; Wt 142.3 kg
[2017-11-11] VITALS (20 sets, daily range): BP systolic 104–130; BP diastolic 42–94; PULSE 75–107; TEMP 97.3–98.3
[2017-11-11 06:30] LABS: BASO # 0.1 (0.0-0.2); BASO % 0.6 % (0.0-2.0); EOS # 0.1 (0.0-0.7); EOS % 0.6 % (0-4.0); GRAN # 9.1 (1.4-6.5); GRAN % 72.7 % (42.2-75.2); LYMPH # 2.5 (1.2-3.4); LYMPH % 19.7 % (20.0-51.0); MEAN CELL VOLUME 67 fl (80.0-100.0); MEAN CORPUSCULAR HGB CONC 27 g/dl (33.0-37.0); MONO # 0.7 (0.1-0.6); MONO % 5.2 % (1.7-9.3); PLATELET COUNT 261 K/mm3 (130-400); RED BLOOD COUNT 4.59 M/mm3 (4.10-5.30); REDCELL DISTRIBUTION WIDTH-CV 20.3 % (11.5-14.5)
[2017-11-11 06:43] LABS: HEMATOCRIT 30.7 % (37.0-47.0); HEMOGLOBIN 8.4 g/dl (12.5-16.0); MEAN CORPUSCULAR HEMOGLOBIN 18 pg (27.0-31.0)
[2017-11-11] MEDS ORDERED: ZANTAC 150MG T150 MG PO (06:48)
[2017-11-11] MEDS ORDERED: WELLBUTRIN XL300 M1 PO (06:50)
[2017-11-11 07:27] LABS: TRICYCLIC ANTIDEPRESS URINE NEGATIVE
[2017-11-12 05:00] VITALS: BP 119/66; PULSE 105; TEMP 97.8
[2017-11-12 07:00] VITALS: BP 121/63; PULSE 102; TEMP 97.8
[2017-11-12] MEDS ORDERED: PERCOCET 325 MG1 TA2 PO (08:10)
[2017-11-12] MEDS ORDERED: IBU600 MG PO (08:10)
== END 2017-11-12 12:15 | disposition home or self-care (01) | DRG 766 ==
LOC: OB 05:25 → LDR 09:20 → OB 11-12 12:15
PROVIDERS: Obstetrics & Gynecology
PROC: 10D00Z1 Extraction of Products of Conception, Low, Open Approach (ICD-10-PCS; principal; 2017-11-11)
PROC: 0UDB7ZZ Extraction of Endometrium, Via Natural or Artificial Opening (ICD-10-PCS; 2017-11-11)
DX: O34.211 Maternal care for low transverse scar from previous cesarean delivery (principal); Z3A.39 39 weeks gestation of pregnancy; Z37.0 Single live birth; O99.344 Other mental disorders complicating childbirth; F60.3 Borderline personality disorder; O99.02 Anemia complicating childbirth; O73.0 Retained placenta without hemorrhage; O99.214 Obesity complicating childbirth
CPT/HCPCS: J0690; J1885; J2270; J2370; J2405; J2550; J2590; J3010; J7120

== ENCOUNTER 2018-01-05 21:16 | Emergency (ER) | payer MEDICAID ==
[~2018-01-05] VITALS: Ht 182.9 cm; Wt 131.8 kg
[~2018-01-05 21:16] MED LIST changes: +IBU600 MG PO; +WELLBUTRIN XL300 M1 PO; +ZANTAC 150MG T150 MG PO
[2018-01-05 21:34] VITALS: TEMP 98.5
[2018-01-06 01:27] VITALS: BP 119/72; PULSE 86
== END 2018-01-06 01:28 | disposition home or self-care (01) ==
LOC: COL.ER 21:16
DX: G43.909 Migraine, unspecified, not intractable, without status migrainosus (principal); Z79.1 Long term (current) use of non-steroidal anti-inflammatories (NSAID); Z79.891 Long term (current) use of opiate analgesic
CPT/HCPCS: J1100; J1200; J1885; J2550; J7030

== ENCOUNTER 2018-03-28 00:57 | Emergency (ER) | payer MEDICAID ==
[~2018-03-28] VITALS: Ht 182.9 cm; Wt 140.9 kg
[2018-03-28 01:30] LABS: BASO % 0.4 % (0.0-2.0); EOS # 0.2 (0.0-0.7); EOS % 2.1 % (0-4.0); GRAN # 7.9 (1.4-6.5); GRAN % 70.2 % (42.2-75.2); HEMOGLOBIN 10.1 g/dl (12.5-16.0); LYMPH # 2.5 (1.2-3.4); LYMPH % 22.2 % (20.0-51.0); MEAN CELL VOLUME 71 fl (80.0-100.0); MEAN CORPUSCULAR HEMOGLOBIN 21 pg (27.0-31.0); MEAN CORPUSCULAR HGB CONC 29 g/dl (33.0-37.0); MEAN PLATELET VOLUME 10.8 fl (7.4-10.4); MONO # 0.5 (0.1-0.6); MONO % 4.3 % (1.7-9.3); PLATELET COUNT 320 K/mm3 (130-400); RED BLOOD COUNT 4.91 M/mm3 (4.10-5.30)
[2018-03-28 01:33] LABS: HEMATOCRIT 34.9 % (37.0-47.0)
[2018-03-28] MEDS ORDERED: ZOFRAN8 MG PO (01:36)
[2018-03-28] MEDS ORDERED: PERCOCET 325 MG1 TA2 PO (01:37)
[2018-03-28] MEDS ORDERED: IBU600 MG PO (01:37)
[2018-03-28 01:50] LABS: ALBUMIN 3.7 gm/dL (3.5-5.0); BILIRUBIN,TOTAL 0.3 mg/dL (0.0-1.0); CALCIUM 8.8 mg/dL (8.4-10.2); CREATININE, serum 0.6 mg/dL (0.52-1.25); POTASSIUM 3.9 mmol/L (3.4-5.0); TOTAL PROTEIN 6.9 gm/dL (6.4-8.2)
[2018-03-28 02:04] LABS: C-REACTIVE PROTEIN 2.2 mg/dL (0.0-0.9)
[2018-03-28 02:35] VITALS: BP 97/55; PULSE 83; TEMP 97.3
== END 2018-03-28 02:57 | disposition home or self-care (01) ==
LOC: COL.ER 00:57
PROVIDERS: Emergency Medicine
DX: R11.2 Nausea with vomiting, unspecified (principal); G89.18 Other acute postprocedural pain; G43.909 Migraine, unspecified, not intractable, without status migrainosus; Z98.890 Other specified postprocedural states; Z90.710 Acquired absence of both cervix and uterus; Z88.0 Allergy status to penicillin
CPT/HCPCS: J1170; J2405; J2550; J7030

== ENCOUNTER 2018-05-24 22:15 | Emergency (ER) | payer MEDICAID ==
[~2018-05-24] VITALS: Ht 185.4 cm; Wt 140.9 kg
[~2018-05-24 22:15] MED LIST changes: +ZOFRAN8 MG PO
[2018-05-24 22:25] VITALS: BP 148/75; PULSE 100; TEMP 98.7
== END 2018-05-25 03:06 | disposition home or self-care (01) ==
LOC: COL.ER 22:15
DX: G43.909 Migraine, unspecified, not intractable, without status migrainosus (principal); Z90.710 Acquired absence of both cervix and uterus; Z98.890 Other specified postprocedural states
CPT/HCPCS: J1200; J1630; J1885; J2550

== ENCOUNTER 2018-06-23 13:57 | Emergency (ER) | payer MEDICAID ==
[~2018-06-23] VITALS: Ht 185.4 cm; Wt 145.3 kg
[2018-06-23 14:05] VITALS: BP 131/83; PULSE 88; TEMP 99.7
== END 2018-06-23 15:05 | disposition home or self-care (01) ==
LOC: COL.ER 13:57
DX: Z48.02 Encounter for removal of sutures (principal); G43.909 Migraine, unspecified, not intractable, without status migrainosus; Z87.891 Personal history of nicotine dependence

== ENCOUNTER 2019-03-28 21:27 | Emergency (ER) | payer MEDICAID ==
[~2019-03-28 21:27] MED LIST changes: +AMBIEN 10MG10 MG PO; +CIPRO 250MG TA250 MG PO
[2019-03-28 21:31] VITALS: BP 115/79; TEMP 98.3
[2019-03-28 22:15] LABS: BASO # 0.1 (0.0-0.2); BASO % 0.8 % (0.0-2.0); EOS # 0.3 (0.0-0.7); EOS % 3.2 % (0-4.0); GRAN # 6.7 (1.4-6.5); GRAN % 74.6 % (42.2-75.2); HEMATOCRIT 42.1 % (37.0-47.0); HEMOGLOBIN 13.2 g/dl (12.5-16.0); LYMPH # 1.3 (1.2-3.4); LYMPH % 14.6 % (20.0-51.0); MEAN CELL VOLUME 79 fl (80.0-100.0); MEAN CORPUSCULAR HEMOGLOBIN 25 pg (27.0-31.0); MEAN CORPUSCULAR HGB CONC 31 g/dl (33.0-37.0); MEAN PLATELET VOLUME 12.1 fl (7.4-10.4); MONO # 0.5 (0.1-0.6); PLATELET COUNT 260 K/mm3 (130-400); RED BLOOD COUNT 5.34 M/mm3 (4.10-5.30)
[2019-03-28 22:21] LABS: ALBUMIN 4.3 gm/dL (3.5-5.0); BILIRUBIN,TOTAL 0.5 mg/dL (0.0-1.0); CALCIUM 9.3 mg/dL (8.4-10.2); CREATININE, serum 0.74 (0.52-1.25); POTASSIUM 3.8 mmol/L (3.4-5.0); TOTAL PROTEIN 7.9 gm/dL (6.4-8.2)
[2019-03-28] MEDS ORDERED: COMPAZINE 110 MG/TAB PO (23:06)
[2019-03-28] MEDS ORDERED: ZOFRAN ODT4 MG PO (23:06)
[2019-03-28] MEDS ORDERED: TESSALON P100 MG/CAP PO (23:06)
[2019-03-28 23:36] VITALS: PULSE 94
== END 2019-03-28 23:36 | disposition home or self-care (01) ==
LOC: COL.ER 21:27
PROVIDERS: Emergency Medicine
DX: J11.1 Influenza due to unidentified influenza virus with other respiratory manifestations (principal); Z98.890 Other specified postprocedural states; Z88.0 Allergy status to penicillin
CPT/HCPCS: J0780; J1885; J2405; J7030

== ENCOUNTER 2019-11-16 20:28 | Observation (INO) | payer MEDICAID ==
[~2019-11-16] VITALS: Ht 185.4 cm; Wt 124.8 kg
[~2019-11-16 20:28] MED LIST changes: +COMPAZINE 110 MG/TAB PO; +TESSALON P100 MG/CAP PO; +ZOFRAN ODT4 MG PO
[2019-11-16 21:21] LABS: BASO # 0.1 (0.0-0.2); BASO % 0.5 % (0.0-2.0); EOS # 0.2 (0.0-0.7); EOS % 1.8 % (0-4.0); GRAN # 7.5 (1.4-6.5); GRAN % 71.1 % (42.2-75.2); HEMATOCRIT 39.2 % (37.0-47.0); HEMOGLOBIN 12.8 g/dl (12.5-16.0); LYMPH # 2.2 (1.2-3.4); LYMPH % 20.8 % (20.0-51.0); MEAN CELL VOLUME 81 fl (80.0-100.0); MEAN CORPUSCULAR HEMOGLOBIN 27 pg (27.0-31.0); MEAN CORPUSCULAR HGB CONC 33 g/dl (33.0-37.0); MEAN PLATELET VOLUME 11.8 fl (7.4-10.4); MONO # 0.5 (0.1-0.6); MONO % 5.1 % (1.7-9.3); PLATELET COUNT 238 K/mm3 (130-400); RED BLOOD COUNT 4.82 M/mm3 (4.10-5.30); REDCELL DISTRIBUTION WIDTH-CV 14.2 % (11.5-14.5)
[2019-11-16 21:34] LABS: ALBUMIN 3.9 gm/dL (3.5-5.0); BILIRUBIN,TOTAL 0.5 mg/dL (0.0-1.0); C-REACTIVE PROTEIN 2.9 mg/dL (0.0-0.9); CALCIUM 8.7 mg/dL (8.4-10.2); CREATININE, serum 0.69 (0.52-1.25); POTASSIUM 3.7 mmol/L (3.4-5.0); TOTAL PROTEIN 7.5 gm/dL (6.4-8.2)
[2019-11-16 22:20] LABS: COLLECTION METHOD CLEAN CATCH
[2019-11-16 22:42] LABS: MUCOUS Present /lpf; PH 5 (5-8); SQUAMOUS EPITHELIAL 0-2 /hpf; URINE APPEARANCE Hazy; URINE BACTERIA None Seen /hpf; URINE BILIRUBIN Negative (NEGATIVE); URINE BLOOD 1+ (NEGATIVE); URINE COLOR Yellow; URINE GLUCOSE Negative (NEGATIVE); URINE KETONE Negative (NEGATIVE); URINE LEUKOCYTE ESTERASE Negative (NEGATIVE); URINE NITRATE Negative (NEGATIVE); URINE PROTEIN(semi-quant) 1+ (NEGATIVE)
[2019-11-16] MEDS ORDERED: ADDERALL20 MG PO (22:45)
[2019-11-16] MEDS ORDERED: BUSPAR 30MG30 MG/TAB PO (22:46)
[2019-11-16] MEDS ORDERED: REXULTI2 MG PO (22:46)
[2019-11-16] MEDS ORDERED: PRILOTC PO (22:47)
[2019-11-16 23:58] VITALS: BP 104/43; PULSE 81; TEMP 98.1
[2019-11-17] VITALS: BP 101/70; PULSE 74; TEMP 98.3
--- NOTE | 2019-11-17 | NUR ---
Pt arrived to the floor via strecher. Pt was able to ambulate to the bed. Pt stated that her pain was ok for right now. Pt lungs sounds were clear and her heart sounds were normal S1 and S2 sounds. Pt has her call light within reach and her bed is in lowest position.
--- NOTE | 2019-11-17 02:00 | NUR ---
Pt is currently sleeping in bed. Pt has her call light within reach and her bed.
[2019-11-17 04:46] VITALS: BP 120/54; PULSE 84; TEMP 98.4
--- NOTE | 2019-11-17 07:12 | NUR ---
Pt was given a pain pill at 0601 this morning. Pt has only had pain medication twice. She also had pain medication at 0147 this morning. Pt has her call light within reach.
--- NOTE | 2019-11-17 07:22 | NUR ---
Dr Castillo here to see patient.
[2019-11-17 09:04] LABS: BASO % 0.4 % (0.0-2.0); EOS # 0.2 (0.0-0.7); EOS % 2.4 % (0-4.0); GRAN # 4.5 (1.4-6.5); GRAN % 63.9 % (42.2-75.2); HEMATOCRIT 36.5 % (37.0-47.0); HEMOGLOBIN 11.7 g/dl (12.5-16.0); LYMPH # 1.8 (1.2-3.4); LYMPH % 26.1 % (20.0-51.0); MEAN CELL VOLUME 83 fl (80.0-100.0); MEAN CORPUSCULAR HEMOGLOBIN 27 pg (27.0-31.0); MEAN CORPUSCULAR HGB CONC 32 g/dl (33.0-37.0); MEAN PLATELET VOLUME 11.7 fl (7.4-10.4); MONO # 0.5 (0.1-0.6); MONO % 6.8 % (1.7-9.3); PLATELET COUNT 196 K/mm3 (130-400); RED BLOOD COUNT 4.39 M/mm3 (4.10-5.30); REDCELL DISTRIBUTION WIDTH-CV 14.4 % (11.5-14.5)
[2019-11-17 09:05] VITALS: BP 105/48; PULSE 80; TEMP 97.9
[2019-11-17 09:15] LABS: ALBUMIN 3.2 gm/dL (3.5-5.0); BILIRUBIN,TOTAL 0.7 mg/dL (0.0-1.0); CALCIUM 8.1 mg/dL (8.4-10.2); CREATININE, serum 0.65 (0.52-1.25); POTASSIUM 3.6 mmol/L (3.4-5.0); TOTAL PROTEIN 6.5 gm/dL (6.4-8.2)
--- NOTE | 2019-11-17 10:35 | NUR ---
Patient alert and oriented, answers questions appropriately. See assessment. Abdomen soft, non tender, non distended. +Flatus. Bowel sounds active x4 quads. C/o right flank pain. Activity/exercises reviewed with patient. No c/o at this time.
--- NOTE | 2019-11-17 11:00 | NUR ---
First visit from the crop nutrition scientist. No needs right now.
[2019-11-17 12:22] VITALS: BP 94/52; PULSE 89; TEMP 98.2
--- NOTE | 2019-11-17 15:20 | NUR ---
Patient upset that sonogram resulted WNL, states she knows "its not right". Updated patient that Dr Castillo will be in to see patient, and that he has been updated several times about patient status. Patient states she wishes to leave the hospital at this time. Informed patient that Dr Castillo will be here soon to see patient and discharge can be discussed at that time. Patient states she "Will jsut leave now". Educated patient on leaving hospital AMA, including possibility of insurance not paying for hospital stay. Patient verbalizes understanding and states "I will leave AMA". Dr Castillo and Mail Messenger notified. Patient left unit AMA at 1522.
[2019-11-28] MEDS ORDERED: TOVIAZ4 MG PO (06:02)
[2019-11-28] MEDS ORDERED: NORCO 325 MG-51 TAB PO (14:03)
[2019-11-28] MEDS ORDERED: NEURONTIN100 MG/CAP PO (14:04)
[2019-11-28] MEDS ORDERED: MOTRIN 600600 MG/TAB PO (14:04)
[2019-11-28] MEDS ORDERED: COLACE 100100 MG/CAP PO (14:04)
== END 2019-11-17 15:22 | disposition left against medical advice (07) ==
LOC: COL.ER 20:28 → SURG 22:51
PROVIDERS: Emergency Medicine; ADMIT Surgery
DX: R10.11 Right upper quadrant pain (principal); R10.13 Epigastric pain; N83.201 Unspecified ovarian cyst, right side; F43.10 Post-traumatic stress disorder, unspecified; F41.9 Anxiety disorder, unspecified; F32.9 Major depressive disorder, single episode, unspecified; Z87.891 Personal history of nicotine dependence; Z90.710 Acquired absence of both cervix and uterus; Z88.1 Allergy status to other antibiotic agents; Z88.0 Allergy status to penicillin; Z88.8 Allergy status to other drugs, medicaments and biological substances; Z79.899 Other long term (current) drug therapy; Z90.49 Acquired absence of other specified parts of digestive tract
CPT/HCPCS: C9113; G0378; J1170; J1885; J2405; J7030; Q9967

== ENCOUNTER → 2019-11-24 | Outpatient (CLI) | payer MEDICAID ==
[~2019-11-24] MED LIST changes: +BUSPAR 30MG30 MG/TAB PO; +PRILOSEC10 MG; +REXULTI2 MG PO
== END ==
LOC: COL.RAD 06:34
DX: R10.11 Right upper quadrant pain (principal); R11.0 Nausea
CPT/HCPCS: A9537; J2805

== ENCOUNTER 2019-11-27 00:33 | Emergency (ER) | payer MEDICAID ==
[~2019-11-27] VITALS: Ht 185.4 cm; Wt 145.5 kg
[~2019-11-27 00:33] MED LIST changes: -PRILOSEC10 MG; +PRILOTC PO
[2019-11-27 01:07] LABS: BASO # 0.1 (0.0-0.2); BASO % 0.6 % (0.0-2.0); EOS # 0.2 (0.0-0.7); EOS % 2.1 % (0-4.0); GRAN # 6.6 (1.4-6.5); GRAN % 64.8 % (42.2-75.2); HEMATOCRIT 42.9 % (37.0-47.0); LYMPH # 2.6 (1.2-3.4); LYMPH % 25.5 % (20.0-51.0); MEAN CELL VOLUME 80 fl (80.0-100.0); MEAN CORPUSCULAR HEMOGLOBIN 26 pg (27.0-31.0); MEAN CORPUSCULAR HGB CONC 33 g/dl (33.0-37.0); MEAN PLATELET VOLUME 11.1 fl (7.4-10.4); MONO # 0.6 (0.1-0.6); MONO % 6.3 % (1.7-9.3); PLATELET COUNT 269 K/mm3 (130-400); RED BLOOD COUNT 5.38 M/mm3 (4.10-5.30); REDCELL DISTRIBUTION WIDTH-CV 13.7 % (11.5-14.5)
[2019-11-27 01:18] LABS: ALBUMIN 4.3 gm/dL (3.5-5.0); BILIRUBIN,TOTAL 0.6 mg/dL (0.0-1.0); CALCIUM 9.2 mg/dL (8.4-10.2); CREATININE, serum 0.77 (0.52-1.25); TOTAL PROTEIN 8.3 gm/dL (6.4-8.2)
[2019-11-27 02:36] VITALS: BP 118/76; PULSE 75; TEMP 97.4
[2019-11-27] MEDS ORDERED: ADDERALL20 MG PO (15:53)
[2019-11-27] MEDS ORDERED: NORCO 325 MG-51 TAB PO (18:02)
[2019-11-28] MEDS ORDERED: TOVIAZ4 MG PO (06:02)
[2019-11-28] MEDS ORDERED: NORCO 325 MG-51 TAB PO (14:03)
[2019-11-28] MEDS ORDERED: COLACE 100100 MG/CAP PO (14:04)
[2019-11-28] MEDS ORDERED: NEURONTIN100 MG/CAP PO (14:04)
[2019-11-28] MEDS ORDERED: MOTRIN 600600 MG/TAB PO (14:04)
== END 2019-11-27 02:35 | disposition home or self-care (01) ==
LOC: COL.ER 00:33
PROVIDERS: Emergency Medicine
DX: K82.9 Disease of gallbladder, unspecified (principal)
CPT/HCPCS: J1170; J2405; J3010; J7030

== ENCOUNTER 2019-12-02 04:45 | Emergency (ER) | payer MEDICAID ==
[~2019-12-02] VITALS: Ht 185.4 cm; Wt 145.5 kg
[~2019-12-02 04:45] MED LIST changes: +COLACE 100100 MG/CAP PO; +MOTRIN 600600 MG/TAB PO; +NEURONTIN100 MG/CAP PO; +TOVIAZ4 MG PO
[2019-12-02 04:48] VITALS: TEMP 97.4
[2019-12-02 05:27] LABS: BASO # 0.1 (0.0-0.2); BASO % 0.5 % (0.0-2.0); EOS # 0.2 (0.0-0.7); EOS % 2.2 % (0-4.0); GRAN # 8.3 (1.4-6.5); GRAN % 77.2 % (42.2-75.2); HEMATOCRIT 40.4 % (37.0-47.0); HEMOGLOBIN 13.1 g/dl (12.5-16.0); LYMPH # 1.5 (1.2-3.4); LYMPH % 14.3 % (20.0-51.0); MEAN CELL VOLUME 81 fl (80.0-100.0); MEAN CORPUSCULAR HEMOGLOBIN 26 pg (27.0-31.0); MEAN CORPUSCULAR HGB CONC 32 g/dl (33.0-37.0); MEAN PLATELET VOLUME 11.3 fl (7.4-10.4); MONO # 0.6 (0.1-0.6); MONO % 5.3 % (1.7-9.3); PLATELET COUNT 259 K/mm3 (130-400); REDCELL DISTRIBUTION WIDTH-CV 13.8 % (11.5-14.5)
[2019-12-02 05:38] LABS: ALBUMIN 3.9 gm/dL (3.5-5.0); BILIRUBIN,TOTAL 1.2 mg/dL (0.0-1.0); C-REACTIVE PROTEIN 2.9 mg/dL (0.0-0.9); CALCIUM 8.8 mg/dL (8.4-10.2); CREATININE, serum 0.69 (0.52-1.25); POTASSIUM 3.9 mmol/L (3.4-5.0); TOTAL PROTEIN 7.6 gm/dL (6.4-8.2)
[2019-12-02] MEDS ORDERED: PHENERGAN25 MG RC (06:52)
[2019-12-02] MEDS ORDERED: PHENERGAN 25 TA25 MG PO (06:52)
[2019-12-02 08:04] VITALS: BP 116/62; PULSE 61
== END 2019-12-02 08:04 | disposition home or self-care (01) ==
LOC: COL.ER 04:45
PROVIDERS: Emergency Medicine
DX: G89.18 Other acute postprocedural pain (principal); K59.00 Constipation, unspecified; F41.9 Anxiety disorder, unspecified; F32.9 Major depressive disorder, single episode, unspecified; Z90.49 Acquired absence of other specified parts of digestive tract; Z90.710 Acquired absence of both cervix and uterus; Z88.0 Allergy status to penicillin; Z88.1 Allergy status to other antibiotic agents
CPT/HCPCS: J1170; J2550; J7030; Q9967

== ENCOUNTER 2020-03-15 18:42 | Emergency (ER) | payer MEDICAID ==
[~2020-03-15] VITALS: Ht 185.4 cm; Wt 145.5 kg
[~2020-03-15 18:42] MED LIST changes: +ADDERALL XR30 MG PO; +FIORICET 325 MG1 TA1 PO
[2020-03-15 18:49] VITALS: BP 114/69; TEMP 98.4
[2020-03-15] MEDS ORDERED: AMITRIPTYLINE H50 M1 PO (19:02)
[2020-03-15 19:25] LABS: COLLECTION METHOD CLEAN CATCH
[2020-03-15 19:43] LABS: PH 5 (5-8); URINE APPEARANCE Hazy; URINE BACTERIA Rare /hpf; URINE BILIRUBIN Negative (NEGATIVE); URINE BLOOD Negative (NEGATIVE); URINE COLOR Yellow; URINE GLUCOSE Negative (NEGATIVE); URINE KETONE Negative (NEGATIVE); URINE LEUKOCYTE ESTERASE Negative (NEGATIVE); URINE NITRATE Negative (NEGATIVE); URINE PROTEIN(semi-quant) Negative (NEGATIVE); URINE RBC 0-2 /hpf; URINE UROBILINOGEN Negative (NEGATIVE)
[2020-03-15 20:23] VITALS: PULSE 98
[2020-03-16] MEDS ORDERED: OMNICEF 300MG300 MG PO (22:58)
== END 2020-03-15 20:25 | disposition home or self-care (01) ==
LOC: COL.ER 18:42
PROVIDERS: Physician Assistant
DX: R10.31 Right lower quadrant pain (principal); Z87.442 Personal history of urinary calculi; G47.00 Insomnia, unspecified; F41.9 Anxiety disorder, unspecified; F43.10 Post-traumatic stress disorder, unspecified; E66.9 Obesity, unspecified; Z68.41 Body mass index [BMI] 40.0-44.9, adult; Z87.891 Personal history of nicotine dependence; Z90.710 Acquired absence of both cervix and uterus; Z88.0 Allergy status to penicillin; Z88.1 Allergy status to other antibiotic agents; Z88.8 Allergy status to other drugs, medicaments and biological substances

== ENCOUNTER 2020-03-16 19:15 | Emergency (ER) | payer MEDICAID ==
[~2020-03-16] VITALS: Ht 185.4 cm; Wt 145.5 kg
[~2020-03-16 19:15] MED LIST changes: +AMITRIPTYLINE H50 M1 PO
[2020-03-16 20:02] VITALS: TEMP 98.5
[2020-03-16 21:56] LABS: BASO # 0.1 (0.0-0.2); BASO % 0.7 % (0.0-2.0); EOS # 0.2 (0.0-0.7); EOS % 1.8 % (0-4.0); GRAN # 7.1 (1.4-6.5); GRAN % 68.9 % (42.2-75.2); HEMATOCRIT 42.4 % (37.0-47.0); HEMOGLOBIN 13.9 g/dl (12.5-16.0); LYMPH # 2.3 (1.2-3.4); LYMPH % 22.6 % (20.0-51.0); MEAN CELL VOLUME 78 fl (80.0-100.0); MEAN CORPUSCULAR HEMOGLOBIN 26 pg (27.0-31.0); MEAN CORPUSCULAR HGB CONC 33 g/dl (33.0-37.0); MEAN PLATELET VOLUME 10.8 fl (7.4-10.4); MONO # 0.5 (0.1-0.6); PLATELET COUNT 261 K/mm3 (130-400); RED BLOOD COUNT 5.43 M/mm3 (4.10-5.30); REDCELL DISTRIBUTION WIDTH-CV 13.6 % (11.5-14.5)
[2020-03-16 22:02] LABS: COLLECTION METHOD CLEAN CATCH
[2020-03-16 22:09] LABS: ALBUMIN 4.1 gm/dL (3.5-5.0); BILIRUBIN,TOTAL 0.5 mg/dL (0.0-1.0); CALCIUM 9.2 mg/dL (8.4-10.2); CREATININE, serum 0.71 (0.52-1.25); POTASSIUM 3.8 mmol/L (3.4-5.0); TOTAL PROTEIN 7.7 gm/dL (6.4-8.2)
[2020-03-16 22:10] LABS: MUCOUS Present /lpf; PH 6 (5-8); SQUAMOUS EPITHELIAL 0-2 /hpf; URINE APPEARANCE Hazy; URINE BACTERIA Rare /hpf; URINE BILIRUBIN Negative (NEGATIVE); URINE BLOOD Negative (NEGATIVE); URINE COLOR Yellow; URINE GLUCOSE Negative (NEGATIVE); URINE KETONE Negative (NEGATIVE); URINE LEUKOCYTE ESTERASE Negative (NEGATIVE); URINE NITRATE Positive (NEGATIVE); URINE PROTEIN(semi-quant) 1+ (NEGATIVE); URINE RBC 0-2 /hpf; URINE UROBILINOGEN Negative (NEGATIVE)
[2020-03-16] MEDS ORDERED: OMNICEF 300MG300 MG PO (22:58)
[2020-03-16 23:15] VITALS: BP 119/85; PULSE 89
== END 2020-03-16 23:15 | disposition home or self-care (01) ==
LOC: COL.ER 19:15
PROVIDERS: Nurse Practitioner Primary Care
DX: N39.0 Urinary tract infection, site not specified (principal); F41.9 Anxiety disorder, unspecified; F43.10 Post-traumatic stress disorder, unspecified; Z87.891 Personal history of nicotine dependence; Z88.0 Allergy status to penicillin; Z88.1 Allergy status to other antibiotic agents
CPT/HCPCS: J1885; J2405; J7030

== ENCOUNTER 2020-03-20 16:14 | Emergency (ER) | payer MEDICAID ==
[~2020-03-20] VITALS: Ht 185.4 cm; Wt 145.5 kg
[2020-03-20 16:20] VITALS: BP 118/73; TEMP 97.3
[2020-03-20 18:06] VITALS: PULSE 110
== END 2020-03-20 18:02 | disposition home or self-care (01) ==
LOC: COL.ER 16:14
DX: M25.511 Pain in right shoulder (principal); M25.531 Pain in right wrist; S50.811A Abrasion of right forearm, initial encounter; N39.0 Urinary tract infection, site not specified; F43.10 Post-traumatic stress disorder, unspecified; Z87.891 Personal history of nicotine dependence; Z90.710 Acquired absence of both cervix and uterus; Z90.49 Acquired absence of other specified parts of digestive tract; Z88.0 Allergy status to penicillin; Z88.1 Allergy status to other antibiotic agents; Z88.8 Allergy status to other drugs, medicaments and biological substances; Z79.2 Long term (current) use of antibiotics; W10.9XXA Fall (on) (from) unspecified stairs and steps, initial encounter
CPT/HCPCS: J1885

== ENCOUNTER 2020-04-22 14:07 | Emergency (ER) | payer MEDICAID ==
[~2020-04-22] VITALS: Ht 185.4 cm; Wt 145.5 kg
[2020-04-22 14:11] VITALS: TEMP 97.6
[2020-04-22 16:40] VITALS: BP 124/77; PULSE 88
[2020-04-22] MEDS ORDERED: FIORICET 325 MG1 TA1 PO (16:43)
== END 2020-04-22 16:45 | disposition home or self-care (01) ==
LOC: COL.ER 14:07
DX: G43.909 Migraine, unspecified, not intractable, without status migrainosus (principal); F41.9 Anxiety disorder, unspecified; F43.10 Post-traumatic stress disorder, unspecified; Z86.79 Personal history of other diseases of the circulatory system; Z90.710 Acquired absence of both cervix and uterus; Z90.49 Acquired absence of other specified parts of digestive tract; Z87.891 Personal history of nicotine dependence; Z88.0 Allergy status to penicillin; Z88.1 Allergy status to other antibiotic agents; Z88.8 Allergy status to other drugs, medicaments and biological substances
CPT/HCPCS: J1200; J1885; J2550; J7030

== ENCOUNTER 2020-05-15 15:08 | Emergency (ER) | payer MEDICAID ==
[~2020-05-15] VITALS: Ht 185.4 cm; Wt 145.5 kg
[2020-05-15 15:16] VITALS: TEMP 98.3
[2020-05-15 16:15] VITALS: BP 124/88; PULSE 88
== END 2020-05-15 16:15 | disposition home or self-care (01) ==
LOC: COL.ER 15:08
DX: G43.909 Migraine, unspecified, not intractable, without status migrainosus (principal); F32.9 Major depressive disorder, single episode, unspecified; K21.9 Gastro-esophageal reflux disease without esophagitis; Z87.891 Personal history of nicotine dependence; Z88.0 Allergy status to penicillin; Z88.1 Allergy status to other antibiotic agents; Z88.8 Allergy status to other drugs, medicaments and biological substances
CPT/HCPCS: J0780; J1200; J7030

== ENCOUNTER 2020-06-02 14:14 | Emergency (ER) | payer MEDICAID ==
[~2020-06-02] VITALS: Ht 185.4 cm; Wt 145.5 kg
[2020-06-02 14:24] VITALS: TEMP 98.4
[2020-06-02 16:17] VITALS: BP 128/83; PULSE 90
== END 2020-06-02 16:23 | disposition home or self-care (01) ==
LOC: COL.ER 14:14
DX: G43.909 Migraine, unspecified, not intractable, without status migrainosus (principal); Z88.8 Allergy status to other drugs, medicaments and biological substances; Z88.0 Allergy status to penicillin; Z88.1 Allergy status to other antibiotic agents
CPT/HCPCS: J0595; J0780; J1200; J1885; J7030

== ENCOUNTER 2020-06-05 13:11 | Emergency (ER) | payer MEDICAID ==
[~2020-06-05] VITALS: Ht 185.4 cm; Wt 159.1 kg
[2020-06-05 13:18] VITALS: BP 131/90; TEMP 98.4
[2020-06-05] MEDS ORDERED: PREDNISONE50 MG PO (14:50)
[2020-06-05] MEDS ORDERED: BENADRYL25 M2 PO (14:51)
[2020-06-05] MEDS ORDERED: EPIPEN 2-PAK1 MG/ML IM (14:51)
[2020-06-05 15:04] VITALS: PULSE 90
== END 2020-06-05 15:05 | disposition home or self-care (01) ==
LOC: COL.ER 13:11
DX: T78.40XA Allergy, unspecified, initial encounter (principal); G43.909 Migraine, unspecified, not intractable, without status migrainosus; Z90.710 Acquired absence of both cervix and uterus; Z90.49 Acquired absence of other specified parts of digestive tract; Z88.0 Allergy status to penicillin; Z88.1 Allergy status to other antibiotic agents; Z88.8 Allergy status to other drugs, medicaments and biological substances
CPT/HCPCS: J1200; J7512

== ENCOUNTER 2020-06-17 21:38 | Emergency (ER) | payer OTHER, MEDICAID ==
[~2020-06-17] VITALS: Ht 185.4 cm; Wt 159.1 kg
[~2020-06-17 21:38] MED LIST changes: +BENADRYL25 M2 PO; +EPIPEN 2-PAK1 MG/ML IM; +PREDNISONE50 MG PO
[2020-06-17 23:04] VITALS: BP 124/84; PULSE 104; TEMP 98.5
== END 2020-06-17 23:04 | disposition home or self-care (01) ==
LOC: COL.ER 21:38
DX: S09.90XA Unspecified injury of head, initial encounter (principal); S16.1XXA Strain of muscle, fascia and tendon at neck level, initial encounter; G43.909 Migraine, unspecified, not intractable, without status migrainosus; F43.10 Post-traumatic stress disorder, unspecified; Z88.0 Allergy status to penicillin; Z88.1 Allergy status to other antibiotic agents; Z88.8 Allergy status to other drugs, medicaments and biological substances; Z87.891 Personal history of nicotine dependence; V49.49XA Driver injured in collision with other motor vehicles in traffic accident, initial encounter

== ENCOUNTER 2020-06-19 15:28 | Emergency (ER) | payer OTHER, MEDICAID ==
[~2020-06-19] VITALS: Ht 185.4 cm; Wt 159.1 kg
[2020-06-19 15:39] VITALS: BP 133/87; TEMP 97.6
[2020-06-19 16:53] VITALS: PULSE 87
== END 2020-06-19 16:58 | disposition home or self-care (01) ==
LOC: COL.ER 15:28
DX: S09.90XA Unspecified injury of head, initial encounter (principal); F43.10 Post-traumatic stress disorder, unspecified; Z88.0 Allergy status to penicillin; Z88.1 Allergy status to other antibiotic agents; Z87.891 Personal history of nicotine dependence; Z79.899 Other long term (current) drug therapy; V89.2XXA Person injured in unspecified motor-vehicle accident, traffic, initial encounter
CPT/HCPCS: J0780; J1200; J1885

== ENCOUNTER 2020-07-13 00:09 | Emergency (ER) | payer MEDICAID ==
[~2020-07-13] VITALS: Ht 185.4 cm; Wt 159.1 kg
[2020-07-13 02:11] VITALS: BP 126/67; PULSE 100; TEMP 98.1
== END 2020-07-13 02:13 | disposition home or self-care (01) ==
LOC: COL.ER 00:09
DX: R51.9 Headache, unspecified (principal); F41.9 Anxiety disorder, unspecified; Z86.69 Personal history of other diseases of the nervous system and sense organs; Z88.8 Allergy status to other drugs, medicaments and biological substances; Z88.0 Allergy status to penicillin; Z88.1 Allergy status to other antibiotic agents
CPT/HCPCS: J0595; J1885; J2550; J7040

== ENCOUNTER 2020-07-14 22:43 | Emergency (ER) | payer MEDICAID ==
[~2020-07-14] VITALS: Ht 182.9 cm; Wt 159.1 kg
[2020-07-14 23:11] VITALS: TEMP 97.2
[2020-07-15 01:40] VITALS: BP 115/65; PULSE 98
== END 2020-07-15 01:42 | disposition home or self-care (01) ==
LOC: COL.ER 22:43
DX: G43.909 Migraine, unspecified, not intractable, without status migrainosus (principal); R00.0 Tachycardia, unspecified; F43.10 Post-traumatic stress disorder, unspecified; Z88.0 Allergy status to penicillin; Z88.1 Allergy status to other antibiotic agents; Z88.8 Allergy status to other drugs, medicaments and biological substances; Z79.899 Other long term (current) drug therapy
CPT/HCPCS: J0595; J2550; J7030

== ENCOUNTER 2020-07-17 21:47 | Emergency (ER) | payer MEDICAID ==
[~2020-07-17] VITALS: Ht 185.4 cm; Wt 159.1 kg
[2020-07-18] MEDS ORDERED: ZOFRAN ODT4 MG PO (00:01)
[2020-07-18 00:20] VITALS: BP 143/89; PULSE 102; TEMP 98
== END 2020-07-18 00:20 | disposition home or self-care (01) ==
LOC: COL.ER 21:47
DX: G43.909 Migraine, unspecified, not intractable, without status migrainosus (principal); R00.0 Tachycardia, unspecified; F41.9 Anxiety disorder, unspecified; F43.10 Post-traumatic stress disorder, unspecified; I42.9 Cardiomyopathy, unspecified; Z87.891 Personal history of nicotine dependence; Z79.899 Other long term (current) drug therapy
CPT/HCPCS: J0595; J2550; J7030

== ENCOUNTER 2020-07-26 19:01 | Emergency (ER) | payer MEDICAID ==
[~2020-07-26] VITALS: Ht 177.8 cm; Wt 136.4 kg
[2020-07-26 19:11] VITALS: TEMP 98.1
[2020-07-26 20:41] VITALS: BP 104/72; PULSE 102
== END 2020-07-26 20:40 | disposition home or self-care (01) ==
LOC: COL.ER 19:01
DX: G43.909 Migraine, unspecified, not intractable, without status migrainosus (principal); Z87.891 Personal history of nicotine dependence
CPT/HCPCS: J0595; J2550; J7030

== ENCOUNTER 2020-08-02 13:45 | Emergency (ER) | payer MEDICAID ==
[~2020-08-02] VITALS: Ht 185.4 cm; Wt 159.1 kg
[2020-08-02 16:02] VITALS: BP 134/64; PULSE 88; TEMP 97.4
== END 2020-08-02 16:04 | disposition home or self-care (01) ==
LOC: COL.ER 13:45
DX: G43.909 Migraine, unspecified, not intractable, without status migrainosus (principal); Z87.891 Personal history of nicotine dependence
CPT/HCPCS: J0595; J2550; J7030

== ENCOUNTER 2020-08-04 18:34 | Emergency (ER) | payer MEDICAID ==
[~2020-08-04] VITALS: Ht 185.4 cm; Wt 159.1 kg
[2020-08-04 18:45] VITALS: TEMP 98.4
[2020-08-04 19:41] LABS: BASO # 0.1 (0.0-0.2); BASO % 0.5 % (0.0-2.0); EOS # 0.2 (0.0-0.7); GRAN # 6.4 (1.4-6.5); GRAN % 70.4 % (42.2-75.2); HEMATOCRIT 39.9 % (37.0-47.0); LYMPH # 1.9 (1.2-3.4); LYMPH % 20.5 % (20.0-51.0); MEAN CELL VOLUME 78 fl (80.0-100.0); MEAN CORPUSCULAR HEMOGLOBIN 25 pg (27.0-31.0); MEAN CORPUSCULAR HGB CONC 33 g/dl (33.0-37.0); MEAN PLATELET VOLUME 11.6 fl (7.4-10.4); MONO # 0.5 (0.1-0.6); MONO % 5.6 % (1.7-9.3); PLATELET COUNT 248 K/mm3 (130-400); RED BLOOD COUNT 5.14 M/mm3 (4.10-5.30)
[2020-08-04 19:48] LABS: ALANINE AMINOTRANSFERASE 46 U/L (4-34); ALBUMIN 3.7 gm/dL (3.5-5.0); ALKALINE PHOSPHATASE 125 U/L (50-136); ANION GAP 7 mmol/L (7-16); AST,SGOT 41 U/L (15-37); BILIRUBIN,TOTAL 0.3 mg/dL (0.0-1.0); BLOOD UREA NITROGEN 8 mg/dL (7-17); CALCIUM 9.3 mg/dL (8.4-10.2); CARBON DIOXIDE 25 mmol/L (22-30); CHLORIDE 104 mmol/L (98-107); GLUCOSE 198 mg/dL (74-106); POTASSIUM 3.7 mmol/L (3.4-5.0); SODIUM 137 mmol/L (137-145); TOTAL PROTEIN 7.3 gm/dL (6.4-8.2)
[2020-08-04 20:00] LABS: TROPONIN-I < 0.012 ng/mL (0.000-0.035)
[2020-08-04 20:30] LABS: C-REACTIVE PROTEIN 2.4 mg/dL (0.0-0.9)
[2020-08-04 20:31] VITALS: BP 113/71; PULSE 118
== END 2020-08-04 20:35 | disposition home or self-care (01) ==
LOC: COL.ER 18:34
PROVIDERS: Nurse Practitioner
DX: R07.9 Chest pain, unspecified (principal); R00.2 Palpitations; R00.0 Tachycardia, unspecified; F43.10 Post-traumatic stress disorder, unspecified; Z87.891 Personal history of nicotine dependence; Z79.899 Other long term (current) drug therapy
CPT/HCPCS: J2060; J7030

== ENCOUNTER → 2020-08-04 | Outpatient (CLI) | payer MEDICAID | LOC: COL.RAD 11:37 | DX: M54.41 Lumbago with sciatica, right side (principal) ==

== ENCOUNTER 2020-08-11 20:10 | Emergency (ER) | payer MEDICAID ==
[~2020-08-11] VITALS: Ht 185.4 cm; Wt 159.1 kg
[2020-08-11 22:45] LABS: COLLECTION METHOD CLEAN CATCH
[2020-08-11 22:53] LABS: PH 6 (5-8); SQUAMOUS EPITHELIAL 0-2 /hpf; URINE APPEARANCE Clear; URINE BACTERIA Rare /hpf; URINE BILIRUBIN Negative (NEGATIVE); URINE BLOOD Negative (NEGATIVE); URINE COLOR Yellow; URINE GLUCOSE Negative (NEGATIVE); URINE KETONE Negative (NEGATIVE); URINE LEUKOCYTE ESTERASE Negative (NEGATIVE); URINE NITRATE Negative (NEGATIVE); URINE PROTEIN(semi-quant) 1+ (NEGATIVE); URINE RBC 0-2 /hpf; URINE UROBILINOGEN Negative (NEGATIVE)
[2020-08-12 00:24] LABS: HEMATOCRIT 40.6 % (37.0-47.0); MEAN CELL VOLUME 78 fl (80.0-100.0); MEAN CORPUSCULAR HEMOGLOBIN 25 pg (27.0-31.0); MEAN CORPUSCULAR HGB CONC 32 g/dl (33.0-37.0); MEAN PLATELET VOLUME 11.1 fl (7.4-10.4); PLATELET COUNT 277 K/mm3 (130-400); RED BLOOD COUNT 5.22 M/mm3 (4.10-5.30); REDCELL DISTRIBUTION WIDTH-CV 14.3 % (11.5-14.5)
[2020-08-12 00:32] LABS: ALBUMIN 3.9 gm/dL (3.5-5.0); BILIRUBIN,TOTAL 0.3 mg/dL (0.0-1.0); CALCIUM 9.2 mg/dL (8.4-10.2); CREATININE, serum 0.7 (0.52-1.25); POTASSIUM 3.6 mmol/L (3.4-5.0); TOTAL PROTEIN 7.6 gm/dL (6.4-8.2)
[2020-08-12 00:44] LABS: C-REACTIVE PROTEIN 2.3 mg/dL (0.0-0.9)
[2020-08-12 01:17] LABS: BAND 2 % (0-10); EOSINOPHIL 2 % (0-4); LYMPHOCYTE 27 % (20.0-51.0); NEUTROPHILS 67 % (42.0-75.2)
[2020-08-12 01:18] LABS: PLATELET ESTIMATE NORMAL (NORMAL)
[2020-08-12 03:20] VITALS: BP 137/71; PULSE 78; TEMP 98.2
== END 2020-08-12 03:20 | disposition home or self-care (01) ==
LOC: COL.ER 20:10
PROVIDERS: Nurse Practitioner
DX: R10.31 Right lower quadrant pain (principal); Z32.02 Encounter for pregnancy test, result negative; Z90.711 Acquired absence of uterus with remaining cervical stump; Z90.49 Acquired absence of other specified parts of digestive tract; Z88.8 Allergy status to other drugs, medicaments and biological substances; Z87.891 Personal history of nicotine dependence; Z88.1 Allergy status to other antibiotic agents; Z88.0 Allergy status to penicillin
CPT/HCPCS: J1885; J2405; J2550; J7030; Q9967

== ENCOUNTER 2020-08-12 16:42 | Emergency (ER) | payer MEDICAID ==
[~2020-08-12] VITALS: Ht 185.4 cm; Wt 159.1 kg
[2020-08-12 16:57] VITALS: TEMP 98.9
[2020-08-12 19:34] VITALS: BP 125/79; PULSE 81
== END 2020-08-12 19:36 | disposition home or self-care (01) ==
LOC: COL.ER 16:42
DX: R11.2 Nausea with vomiting, unspecified (principal); R10.31 Right lower quadrant pain; F43.10 Post-traumatic stress disorder, unspecified; G43.909 Migraine, unspecified, not intractable, without status migrainosus; Z90.49 Acquired absence of other specified parts of digestive tract; Z87.891 Personal history of nicotine dependence; Z88.8 Allergy status to other drugs, medicaments and biological substances; Z79.899 Other long term (current) drug therapy
CPT/HCPCS: J1200; J1885; J2550; J7030

== ENCOUNTER 2020-08-13 18:49 | Observation (INO) | payer MEDICAID ==
[~2020-08-13] VITALS: Ht 185.4 cm; Wt 164.3 kg
[2020-08-13] VITALS (74 sets, daily range): BP systolic 91; BP diastolic 57; PULSE 85; TEMP 97.9; O2SAT 64–100
[2020-08-13 19:54] LABS: ALANINE AMINOTRANSFERASE 43 U/L (4-34); ALBUMIN 3.6 gm/dL (3.5-5.0); ALKALINE PHOSPHATASE 112 U/L (50-136); ANION GAP 6 mmol/L (7-16); AST,SGOT 39 U/L (15-37); BASO % 0.6 % (0.0-2.0); BILIRUBIN,TOTAL 0.6 mg/dL (0.0-1.0); BLOOD UREA NITROGEN 10 mg/dL (7-17); CALCIUM 8.6 mg/dL (8.4-10.2); CARBON DIOXIDE 24 mmol/L (22-30); CHLORIDE 107 mmol/L (98-107); CREATININE, serum 0.52 (0.52-1.25); EOS # 0.2 (0.0-0.7); EOS % 2.2 % (0-4.0); GLUCOSE 127 mg/dL (74-106); GRAN # 5.2 (1.4-6.5); GRAN % 71.7 % (42.2-75.2); HEMATOCRIT 38.5 % (37.0-47.0); HEMOGLOBIN 12.5 g/dl (12.5-16.0); LYMPH # 1.3 (1.2-3.4); LYMPH % 17.5 % (20.0-51.0); MAGNESIUM 1.7 mg/dL (1.6-2.3); MEAN CELL VOLUME 77 fl (80.0-100.0); MEAN CORPUSCULAR HEMOGLOBIN 25 pg (27.0-31.0); MEAN CORPUSCULAR HGB CONC 33 g/dl (33.0-37.0); MEAN PLATELET VOLUME 11.2 fl (7.4-10.4); MONO # 0.5 (0.1-0.6); MONO % 7.2 % (1.7-9.3); PLATELET COUNT 236 K/mm3 (130-400); POTASSIUM 3.9 mmol/L (3.4-5.0); RED BLOOD COUNT 5.01 M/mm3 (4.10-5.30); REDCELL DISTRIBUTION WIDTH-CV 14.1 % (11.5-14.5); SODIUM 137 mmol/L (137-145); TOTAL PROTEIN 7.2 gm/dL (6.4-8.2)
[2020-08-13 20:16] LABS: ACETAMINOPHEN < 10 ug/mL (10-30); ALCOHOL(ethanol),MEDICAL < 10 mg/dL; SALICYLATE < 1.0 mg/dL
[2020-08-13 20:59] LABS: COLLECTION METHOD CLEAN CATCH
[2020-08-13 21:27] LABS: TRICYCLIC ANTIDEPRESS URINE POSITIVE
[2020-08-13 21:48] LABS: MUCOUS Present /lpf; PH 5 (5-8); URINE APPEARANCE Cloudy; URINE BACTERIA Rare /hpf; URINE BILIRUBIN Negative (NEGATIVE); URINE BLOOD 1+ (NEGATIVE); URINE COLOR Yellow; URINE GLUCOSE Negative (NEGATIVE); URINE KETONE Negative (NEGATIVE); URINE LEUKOCYTE ESTERASE Trace (NEGATIVE); URINE NITRATE Negative (NEGATIVE); URINE PROTEIN(semi-quant) 1+ (NEGATIVE); URINE UROBILINOGEN Negative (NEGATIVE)
--- NOTE | 2020-08-13 22:20 | NUR ---
Pt arrived to ICU room 5 via cart with CARLI Salas RN. Pt transferred from the cart to the ICU bed with the assistance of 2. Attempted to orient pt to room and call light system, but pt is extremely tearful and hard to console.
--- NOTE | 2020-08-13 22:30 | NUR ---
Pt is extremely aggitated and shouting out. States that she wants to kill herself. She is sobbing uncontrollably and is inconsolable by staff members. MINO Crawford, at the bedside for evaluation.
[2020-08-14] VITALS (423 sets, daily range): BP systolic 102–120; BP diastolic 47–69; PULSE 52–77; TEMP 97.7–98; O2SAT 60–100
[2020-08-14 06:04] LABS: BASO % 0.5 % (0.0-2.0); EOS # 0.1 (0.0-0.7); EOS % 2.4 % (0-4.0); GRAN # 3.6 (1.4-6.5); GRAN % 62.1 % (42.2-75.2); HEMOGLOBIN 12.1 g/dl (12.5-16.0); LYMPH # 1.5 (1.2-3.4); LYMPH % 25.6 % (20.0-51.0); MEAN CELL VOLUME 78 fl (80.0-100.0); MEAN CORPUSCULAR HEMOGLOBIN 25 pg (27.0-31.0); MEAN CORPUSCULAR HGB CONC 32 g/dl (33.0-37.0); MEAN PLATELET VOLUME 10.9 fl (7.4-10.4); MONO # 0.5 (0.1-0.6); MONO % 8.7 % (1.7-9.3); PLATELET COUNT 225 K/mm3 (130-400); RED BLOOD COUNT 4.86 M/mm3 (4.10-5.30)
[2020-08-14 06:13] LABS: CALCIUM 8.5 mg/dL (8.4-10.2); CREATININE, serum 0.61 (0.52-1.25); MAGNESIUM 2.1 mg/dL (1.6-2.3); POTASSIUM 4.3 mmol/L (3.4-5.0)
--- NOTE | 2020-08-14 07:06 | NUR ---
Bedside shift report given to RAMIRO Borjas.
--- NOTE | 2020-08-14 07:56 | NUR ---
Pt this morning asked to use the bathroom. PT was up to the bedside commode to void with SBA. PT is sobbing, hyperventilating requesting her phone and . PT states, "I dont know if I want to hurt myself I am just scared and want my ". This RN assured PT she is safe and I am with her. PT helped back to bed. Appears comfortable and is resting.
--- NOTE | 2020-08-14 14:28 | NUR ---
Sw met with the pt to complete assessment. Pt lives at home with her , Henrry Truong (ph# [phone]) and four children in [place], [place]. Pt PCP is Dr. Giles from [facility] in [place]. Pt gets her medication from [facility]. Pt is independent on all ADLs and does not use any DME. Pt does not have a DPAO-HC, and is not interested in one at this time, but did state her would be her first choice. Dr. Saab present prior to intake to complete psychiatric consult. Dr. Saab stated recommedations for [facility] be contacted to screen patient. SW assisted with contacting [facility] staff to complete screen and documentation faxed to facility. [facility] completed tele screen with patient and provided that patient would benefit from inpatient treatment. Staff also stated that if patient refused inpatient treatment she would be involuntarily admitted to inpatient due to nature of attempt and threat to self. Upon departure of ICU SW notified by nurse that [facility] staff member would be calling nurse back to update on further assessment. SW will continue to follow[facility]
--- NOTE | 2020-08-14 16:14 | NUR ---
SW called ICU nurse of patient and was informed that [facility] staff provided that patient would be going to their facility. Nothing further.
--- NOTE | 2020-08-14 18:27 | NUR ---
1739- Perez from [facility] crisis center called notifying that PT has a room avialable and are requesting that her can bring. 1744- PTs called and on way. 1821- PT to unit. Signed discharged paperwork. PT via wheelchair to 's car.
== END 2020-08-14 18:22 | disposition home or self-care (01) ==
LOC: COL.ER 18:49 → ICU 20:37
PROVIDERS: Emergency Medicine; Student in an Organized Health Care Education/Training Program; ADMIT Internal Medicine
DX: T42.6X2A Poisoning by other antiepileptic and sedative-hypnotic drugs, intentional self-harm, initial encounter (principal); T46.5X2A Poisoning by other antihypertensive drugs, intentional self-harm, initial encounter; T14.91XA Suicide attempt, initial encounter; G43.909 Migraine, unspecified, not intractable, without status migrainosus; R94.31 Abnormal electrocardiogram [ECG] [EKG]; R73.03 Prediabetes; R45.1 Restlessness and agitation; F43.10 Post-traumatic stress disorder, unspecified; I10 Essential (primary) hypertension; I95.9 Hypotension, unspecified; F32.9 Major depressive disorder, single episode, unspecified; F41.9 Anxiety disorder, unspecified; F90.9 Attention-deficit hyperactivity disorder, unspecified type; F95.9 Tic disorder, unspecified; Z79.899 Other long term (current) drug therapy; Z90.710 Acquired absence of both cervix and uterus; Z90.49 Acquired absence of other specified parts of digestive tract
CPT/HCPCS: 99223-AI; 99232-AI; G0378; J3475; J7030

== ENCOUNTER 2020-11-04 12:53 | Emergency (ER) | payer MEDICAID ==
[~2020-11-04] VITALS: Ht 185.4 cm; Wt 159.1 kg
[2020-11-04 12:58] VITALS: BP 131/60; TEMP 97.7
[2020-11-04 15:00] VITALS: PULSE 87
== END 2020-11-04 15:00 | disposition home or self-care (01) ==
LOC: COL.ER 12:53
DX: G43.909 Migraine, unspecified, not intractable, without status migrainosus (principal); F43.10 Post-traumatic stress disorder, unspecified; Z79.899 Other long term (current) drug therapy
CPT/HCPCS: J0595; J2550; J7030

== ENCOUNTER 2020-11-28 17:49 | Emergency (ER) | payer MEDICAID ==
[~2020-11-28] VITALS: Ht 185.4 cm; Wt 159.1 kg
[2020-11-28 17:57] VITALS: TEMP 98.4
[2020-11-28 19:40] VITALS: BP 125/75; PULSE 86
== END 2020-11-28 19:40 | disposition home or self-care (01) ==
LOC: COL.ER 17:49
DX: S93.402A Sprain of unspecified ligament of left ankle, initial encounter (principal); G43.909 Migraine, unspecified, not intractable, without status migrainosus; F41.9 Anxiety disorder, unspecified; F32.9 Major depressive disorder, single episode, unspecified; Z79.899 Other long term (current) drug therapy; Z79.1 Long term (current) use of non-steroidal anti-inflammatories (NSAID); W10.9XXA Fall (on) (from) unspecified stairs and steps, initial encounter

== ENCOUNTER 2020-12-19 18:52 | Emergency (ER) | payer MEDICAID ==
[~2020-12-19] VITALS: Ht 185.4 cm; Wt 159.1 kg
[2020-12-19 19:08] VITALS: BP 142/85; PULSE 104; TEMP 98.7
== END 2020-12-19 19:18 | disposition left against medical advice (07) ==
LOC: COL.ER 18:52
DX: G43.909 Migraine, unspecified, not intractable, without status migrainosus (principal)

== ENCOUNTER 2020-12-20 22:05 | Emergency (ER) | payer MEDICAID ==
[~2020-12-20] VITALS: Ht 185.4 cm; Wt 159.1 kg
[2020-12-21 00:34] VITALS: BP 141/38; PULSE 101; TEMP 98.4
== END 2020-12-21 00:34 | disposition home or self-care (01) ==
LOC: COL.ER 22:05
DX: G43.909 Migraine, unspecified, not intractable, without status migrainosus (principal); F43.10 Post-traumatic stress disorder, unspecified; Z79.899 Other long term (current) drug therapy
CPT/HCPCS: J0595; J2550; J7030

== ENCOUNTER 2021-01-29 20:13 | Emergency (ER) | payer MEDICAID ==
[~2021-01-29] VITALS: Ht 185.4 cm; Wt 159.1 kg
[2021-01-29 20:17] VITALS: TEMP 97.6
[2021-01-29 20:58] VITALS: BP 154/80; PULSE 85
== END 2021-01-29 20:58 | disposition home or self-care (01) ==
LOC: COL.ER 20:13
DX: G43.909 Migraine, unspecified, not intractable, without status migrainosus (principal); Z79.1 Long term (current) use of non-steroidal anti-inflammatories (NSAID)
CPT/HCPCS: J0595; J2550; J7040

== ENCOUNTER 2021-02-20 18:49 | Emergency (ER) | payer MEDICAID ==
[~2021-02-20] VITALS: Ht 185.4 cm; Wt 159.1 kg
[2021-02-20 19:05] VITALS: TEMP 98.4
[2021-02-20 20:40] LABS: COLLECTION METHOD CLEAN CATCH
[2021-02-20 20:45] LABS: MUCOUS Present (NOT PRESENT); PH 6 (5-8); SQUAMOUS EPITHELIAL 0-2 /hpf (0-10); URINE APPEARANCE Clear (CLEAR/HAZY); URINE BACTERIA Rare /hpf (NONE SEEN); URINE BILIRUBIN Negative (NEGATIVE); URINE BLOOD Negative (NEGATIVE); URINE COLOR Yellow (YELLOW); URINE GLUCOSE Negative (NEGATIVE); URINE KETONE Negative (NEGATIVE); URINE LEUKOCYTE ESTERASE Negative (NEGATIVE); URINE NITRATE Negative (NEGATIVE); URINE PROTEIN(semi-quant) 1+ (NEGATIVE); URINE RBC 0-2 /hpf (0-2)
[2021-02-20 20:46] LABS: BASO # 0.1 K/mm3 (0.0-0.2); BASO % 0.5 % (0.0-2.0); EOS # 0.2 K/mm3 (0.0-0.7); EOS % 1.5 % (0.0-4.0); GRAN # 7.1 K/mm3 (1.4-6.5); GRAN % 73.3 % (42.2-75.2); HEMATOCRIT 42.8 % (37.0-47.0); HEMOGLOBIN 13.7 g/dl (12.5-16.0); LYMPH # 1.6 K/mm3 (1.2-3.4); LYMPH % 16.3 % (20.0-51.0); MEAN CELL VOLUME 76 fl (80.0-100.0); MEAN CORPUSCULAR HEMOGLOBIN 24 pg (27-31); MEAN CORPUSCULAR HGB CONC 32 g/dl (33.0-37.0); MEAN PLATELET VOLUME 11.2 fl (7.4-10.4); MONO # 0.7 K/mm3 (0.1-0.6); MONO % 7.1 % (1.7-9.3); PLATELET COUNT 248 K/mm3 (130-400); RED BLOOD COUNT 5.63 M/mm3 (4.10-5.30); REDCELL DISTRIBUTION WIDTH-CV 14.2 % (11.5-14.5)
[2021-02-20 20:53] LABS: TRICYCLIC ANTIDEPRESS URINE NEGATIVE
[2021-02-20 21:13] LABS: ALBUMIN 3.3 gm/dL (3.5-5.0); BILIRUBIN,TOTAL 0.4 mg/dL (0.2-1.2); CALCIUM 9.1 mg/dL (8.4-10.2); CREATININE, serum 0.8 mg/dL (0.57-1.11); POTASSIUM 3.8 mmol/L (3.5-4.5); TOTAL PROTEIN 7.1 gm/dL (6.2-8.1)
[2021-02-20 22:53] VITALS: BP 146/98; PULSE 127
== END 2021-02-20 22:53 | disposition home or self-care (01) ==
LOC: COL.ER 18:49
PROVIDERS: Physician Assistant
DX: R11.2 Nausea with vomiting, unspecified (principal); Z90.49 Acquired absence of other specified parts of digestive tract; Z90.710 Acquired absence of both cervix and uterus; Z88.8 Allergy status to other drugs, medicaments and biological substances
CPT/HCPCS: J2405; J2550; J7030

== ENCOUNTER 2021-03-05 17:37 | Emergency (ER) | payer MEDICAID | END 2021-03-05 18:10 | disposition left against medical advice (07) | LOC: COL.ER 17:37 | DX: R52 Pain, unspecified (principal) ==

== ENCOUNTER 2021-05-19 20:15 | Emergency (ER) | payer MEDICAID ==
[~2021-05-19] VITALS: Ht 185.4 cm; Wt 163.6 kg
[2021-05-19 21:01] VITALS: TEMP 98.1
[2021-05-19] MEDS ORDERED: ZOFRAN ODT4 MG PO (23:40)
[2021-05-20 01:55] VITALS: BP 124/72; PULSE 74
[2021-05-21] MEDS ORDERED: ANTIVERT 25MG25 MG PO (01:19)
== END 2021-05-20 01:46 | disposition home or self-care (01) ==
LOC: COL.ER 20:15
DX: G43.909 Migraine, unspecified, not intractable, without status migrainosus (principal); Z87.891 Personal history of nicotine dependence
CPT/HCPCS: J0595; J1200; J1885; J2405; J2550; J7030

== ENCOUNTER 2021-05-20 21:59 | Emergency (ER) | payer MEDICAID ==
[~2021-05-20] VITALS: Ht 185.4 cm; Wt 168.2 kg
[2021-05-20 22:31] VITALS: TEMP 98.4
[2021-05-21] MEDS ORDERED: ANTIVERT 25MG25 MG PO (01:19)
[2021-05-21 01:33] VITALS: BP 124/85; PULSE 74
== END 2021-05-21 01:31 | disposition home or self-care (01) ==
LOC: COL.ER 21:59
DX: R42 Dizziness and giddiness (principal)
CPT/HCPCS: J2550

== ENCOUNTER 2021-05-23 20:13 | Emergency (ER) | payer MEDICAID ==
[~2021-05-23] VITALS: Ht 185.4 cm; Wt 159.1 kg
[~2021-05-23 20:13] MED LIST changes: +ANTIVERT 25MG25 MG PO
[2021-05-23 20:29] VITALS: TEMP 97.1
[2021-05-23 22:32] VITALS: BP 147/84; PULSE 91
== END 2021-05-23 22:37 | disposition home or self-care (01) ==
LOC: COL.ER 20:13
DX: S09.90XA Unspecified injury of head, initial encounter (principal); W22.8XXA Striking against or struck by other objects, initial encounter
CPT/HCPCS: J0595; J2550

== ENCOUNTER 2021-06-09 22:13 | Emergency (ER) | payer MEDICAID ==
[~2021-06-09] VITALS: Ht 185.4 cm; Wt 163.6 kg
[2021-06-09 22:23] VITALS: TEMP 98.1
[2021-06-09 23:33] LABS: COLLECTION METHOD CLEAN CATCH
[2021-06-09 23:54] LABS: MUCOUS Present (NOT PRESENT); PH 5 (5-8); URINE APPEARANCE Cloudy (CLEAR/HAZY); URINE BACTERIA Moderate /hpf (NONE SEEN); URINE BILIRUBIN Negative (NEGATIVE); URINE BLOOD Negative (NEGATIVE); URINE COLOR Amber (YELLOW); URINE GLUCOSE Negative (NEGATIVE); URINE KETONE Negative (NEGATIVE); URINE LEUKOCYTE ESTERASE Trace (NEGATIVE); URINE NITRATE Negative (NEGATIVE); URINE PROTEIN(semi-quant) 3+ (NEGATIVE); URINE RBC 0-2 /hpf (0-2); URINE UROBILINOGEN Negative (NEGATIVE)
[2021-06-10 00:13] VITALS: BP 126/78; PULSE 103
== END 2021-06-10 00:13 | disposition home or self-care (01) ==
LOC: COL.ER 22:13
PROVIDERS: Student in an Organized Health Care Education/Training Program
DX: M54.50 Low back pain, unspecified (principal); G89.29 Other chronic pain

== ENCOUNTER 2021-06-25 22:11 | Emergency (ER) | payer MEDICAID ==
[~2021-06-25] VITALS: Ht 185.4 cm; Wt 172.7 kg
[2021-06-25 22:51] LABS: COLLECTION METHOD CLEAN CATCH
[2021-06-25 22:54] LABS: BASO # 0.1 K/mm3 (0.0-0.2); BASO % 0.7 % (0.0-2.0); EOS # 0.2 K/mm3 (0.0-0.7); EOS % 2.2 % (0.0-4.0); GRAN # 4.5 K/mm3 (1.4-6.5); GRAN % 61.3 % (42.2-75.2); HEMOGLOBIN 12.4 g/dl (12.5-16.0); LYMPH # 2.1 K/mm3 (1.2-3.4); LYMPH % 28.5 % (20.0-51.0); MEAN CELL VOLUME 75 fl (80.0-100.0); MEAN CORPUSCULAR HEMOGLOBIN 24 pg (27-31); MEAN CORPUSCULAR HGB CONC 32 g/dl (33.0-37.0); MEAN PLATELET VOLUME 11.6 fl (7.4-10.4); MONO # 0.5 K/mm3 (0.1-0.6); MONO % 6.4 % (1.7-9.3); PLATELET COUNT 218 K/mm3 (130-400); RED BLOOD COUNT 5.21 M/mm3 (4.10-5.30); REDCELL DISTRIBUTION WIDTH-CV 13.8 % (11.5-14.5)
[2021-06-25 23:01] LABS: MUCOUS Present (NOT PRESENT); PH 6 (5-8); URINE APPEARANCE Cloudy (CLEAR/HAZY); URINE BACTERIA Many /hpf (NONE SEEN); URINE BILIRUBIN Negative (NEGATIVE); URINE BLOOD Negative (NEGATIVE); URINE COLOR Yellow (YELLOW); URINE GLUCOSE Negative (NEGATIVE); URINE KETONE Negative (NEGATIVE); URINE LEUKOCYTE ESTERASE Negative (NEGATIVE); URINE NITRATE Positive (NEGATIVE); URINE PROTEIN(semi-quant) 1+ (NEGATIVE); URINE RBC 0-2 /hpf (0-2); URINE UROBILINOGEN Negative (NEGATIVE)
[2021-06-25 23:15] LABS: ALBUMIN 3.1 gm/dL (3.5-5.0); BILIRUBIN,TOTAL 0.5 mg/dL (0.2-1.2); CALCIUM 8.4 mg/dL (8.4-10.2); CREATININE, serum 0.81 mg/dL (0.57-1.11); TOTAL PROTEIN 6.4 gm/dL (6.2-8.1)
[2021-06-25] MEDS ORDERED: CIPRO 500MG TA500 MG PO (23:33)
[2021-06-25 23:40] VITALS: BP 137/89; PULSE 75; TEMP 98.8
== END 2021-06-25 23:40 | disposition home or self-care (01) ==
LOC: COL.ER 22:11
PROVIDERS: Nurse Practitioner Primary Care
DX: N39.0 Urinary tract infection, site not specified (principal); Z90.49 Acquired absence of other specified parts of digestive tract; Z88.0 Allergy status to penicillin; Z88.1 Allergy status to other antibiotic agents; Z20.822 Contact with and (suspected) exposure to COVID-19
CPT/HCPCS: J0696; J1885; J2550; J7030

== ENCOUNTER 2021-07-06 21:10 | Emergency (ER) | payer MEDICAID ==
[~2021-07-06] VITALS: Ht 185.4 cm; Wt 163.6 kg
[~2021-07-06 21:10] MED LIST changes: +CIPRO 500MG TA500 MG PO
[2021-07-06 21:19] VITALS: TEMP 98.4
[2021-07-06 22:04] LABS: BASO # 0.1 K/mm3 (0.0-0.2); BASO % 0.9 % (0.0-2.0); EOS # 0.2 K/mm3 (0.0-0.7); EOS % 2.2 % (0.0-4.0); GRAN # 4.7 K/mm3 (1.4-6.5); GRAN % 59.9 % (42.2-75.2); HEMATOCRIT 42.1 % (37.0-47.0); HEMOGLOBIN 13.6 g/dl (12.5-16.0); LYMPH # 2.3 K/mm3 (1.2-3.4); LYMPH % 29.9 % (20.0-51.0); MEAN CELL VOLUME 73 fl (80.0-100.0); MEAN CORPUSCULAR HEMOGLOBIN 24 pg (27-31); MEAN CORPUSCULAR HGB CONC 32 g/dl (33.0-37.0); MEAN PLATELET VOLUME 10.9 fl (7.4-10.4); MONO # 0.5 K/mm3 (0.1-0.6); MONO % 6.2 % (1.7-9.3); PLATELET COUNT 235 K/mm3 (130-400); RED BLOOD COUNT 5.79 M/mm3 (4.10-5.30); REDCELL DISTRIBUTION WIDTH-CV 14.1 % (11.5-14.5)
[2021-07-06 22:20] LABS: ALBUMIN 3.4 gm/dL (3.5-5.0); BILIRUBIN,TOTAL 0.4 mg/dL (0.2-1.2); CALCIUM 8.8 mg/dL (8.4-10.2); CREATININE, serum 0.81 mg/dL (0.57-1.11); POTASSIUM 3.7 mmol/L (3.5-4.5); TOTAL PROTEIN 6.9 gm/dL (6.2-8.1)
[2021-07-06] MEDS ORDERED: ZOFRAN ODT4 MG PO (23:23)
[2021-07-06 23:53] VITALS: BP 111/67; PULSE 85
== END 2021-07-06 23:55 | disposition home or self-care (01) ==
LOC: COL.ER 21:10
PROVIDERS: Student in an Organized Health Care Education/Training Program
DX: B34.9 Viral infection, unspecified (principal); Z28.310 Unvaccinated for COVID-19

== ENCOUNTER 2021-08-07 20:39 | Inpatient (IN) | payer MEDICAID ==
[2021-08-07] VITALS (24 sets, daily range): O2SAT 88–93
[~2021-08-07] VITALS: Ht 185.4 cm; Wt 160.3 kg
[2021-08-07 21:05] LABS: BASO # 0.1 K/mm3 (0.0-0.2); BASO % 0.8 % (0.0-2.0); EOS # 0.2 K/mm3 (0.0-0.7); EOS % 2.9 % (0.0-4.0); GRAN # 4.4 K/mm3 (1.4-6.5); GRAN % 61.2 % (42.2-75.2); HEMATOCRIT 42.6 % (37.0-47.0); HEMOGLOBIN 13.7 g/dl (12.5-16.0); LYMPH # 2.1 K/mm3 (1.2-3.4); LYMPH % 28.5 % (20.0-51.0); MEAN CELL VOLUME 74 fl (80.0-100.0); MEAN CORPUSCULAR HEMOGLOBIN 24 pg (27-31); MEAN CORPUSCULAR HGB CONC 32 g/dl (33.0-37.0); MEAN PLATELET VOLUME 10.3 fl (7.4-10.4); MONO # 0.5 K/mm3 (0.1-0.6); MONO % 6.2 % (1.7-9.3); PLATELET COUNT 237 K/mm3 (130-400); RED BLOOD COUNT 5.74 M/mm3 (4.10-5.30); REDCELL DISTRIBUTION WIDTH-CV 15.1 % (11.5-14.5)
[2021-08-07 21:24] LABS: ACETAMINOPHEN < 1.0 ug/mL (10-30); ALANINE AMINOTRANSFERASE 58 U/L (0-55); ALBUMIN 3.4 gm/dL (3.5-5.0); ALCOHOL(ethanol),MEDICAL < 10 mg/dL (0-10); ALKALINE PHOSPHATASE 110 U/L (40-150); ANION GAP 13 mmol/L (7-16); AST,SGOT 45 U/L (5-34); BILIRUBIN,TOTAL 0.5 mg/dL (0.2-1.2); BLOOD UREA NITROGEN 7 mg/dL (7-19); CALCIUM 9.2 mg/dL (8.4-10.2); CARBON DIOXIDE 24 mmol/L (22-29); CHLORIDE 106 mmol/L (98-107); CREATININE, serum 0.77 mg/dL (0.57-1.11); GLUCOSE 145 mg/dL (70-99); POTASSIUM 3.4 mmol/L (3.5-4.5); SALICYLATE < 5.0 mg/dL (15.0-30.0); SODIUM 143 mmol/L (136-145); TOTAL PROTEIN 7.3 gm/dL (6.2-8.1)
[2021-08-07 21:29] LABS: COLLECTION METHOD CLEAN CATCH
[2021-08-07 21:37] LABS: MUCOUS Present (NOT PRESENT); PH 5 (5-8); URINE APPEARANCE Cloudy (CLEAR/HAZY); URINE BACTERIA Occasional /hpf (NONE SEEN); URINE BILIRUBIN Negative (NEGATIVE); URINE BLOOD 1+ (NEGATIVE); URINE COLOR Yellow (YELLOW); URINE GLUCOSE Negative (NEGATIVE); URINE KETONE Negative (NEGATIVE); URINE LEUKOCYTE ESTERASE 3+ (NEGATIVE); URINE NITRATE Negative (NEGATIVE); URINE PROTEIN(semi-quant) 2+ (NEGATIVE); URINE RBC 20-50 /hpf (0-2); URINE UROBILINOGEN Negative (NEGATIVE)
[2021-08-07 21:54] LABS: TRICYCLIC ANTIDEPRESS URINE POSITIVE
[2021-08-08] VITALS (1188 sets, daily range): BP systolic 88–135; BP diastolic 40–78; PULSE 66–84; TEMP 97.5–98.3; O2SAT 88–100
[2021-08-08 01:54] LABS: CALCIUM 8.5 mg/dL (8.4-10.2); CREATININE, serum 0.77 mg/dL (0.57-1.11); MAGNESIUM 2.1 mg/dL (1.6-2.6); POTASSIUM 3.9 mmol/L (3.5-4.5)
[2021-08-08 05:54] LABS: CALCIUM 8.4 mg/dL (8.4-10.2); CREATININE, serum 0.73 mg/dL (0.57-1.11); MAGNESIUM 2.1 mg/dL (1.6-2.6); POTASSIUM 3.9 mmol/L (3.5-4.5)
[2021-08-08 09:27] LABS: CALCIUM 8.5 mg/dL (8.4-10.2); CREATININE, serum 0.69 mg/dL (0.57-1.11); POTASSIUM 3.8 mmol/L (3.5-4.5)
--- NOTE | 2021-08-08 10:39 | NUR ---
Patient currently admitted for overdose w/ suicidal ideation. Will await to meet with patient once psych screen completed.
[2021-08-08 17:16] LABS: CALCIUM 9.2 mg/dL (8.4-10.2); CREATININE, serum 0.79 mg/dL (0.57-1.11); POTASSIUM 4.2 mmol/L (3.5-4.5)
--- NOTE | 2021-08-08 19:00 | NUR ---
Received report from RAMIRO Borjas.
--- NOTE | 2021-08-08 19:30 | NUR ---
Patient resting quietly in bed. She is alert and oriented; vitals within normal limits. Patient denies current thoughts of suicide or plans of self harm. She denies presence of pain but states her pope catheter is uncomfortable. Will notify hospitalistYvette.
--- NOTE | 2021-08-08 20:00 | NUR ---
Patient's IVF and pope catheter discontinued per hospitalistYvette. Fall risk assessment complete; patient observed ambulating in room without assistance. Gait is steady. Patient able to be up independently in room.
[2021-08-09] VITALS (10 sets, daily range): BP systolic 116–158; BP diastolic 69–94; PULSE 85–111; TEMP 98.2–99.2; O2SAT 93–96
[2021-08-09 06:42] LABS: BASO # 0.1 K/mm3 (0.0-0.2); BASO % 0.8 % (0.0-2.0); EOS # 0.2 K/mm3 (0.0-0.7); EOS % 3.2 % (0.0-4.0); GRAN # 3.6 K/mm3 (1.4-6.5); GRAN % 56.2 % (42.2-75.2); HEMATOCRIT 41.1 % (37.0-47.0); LYMPH % 32.2 % (20.0-51.0); MEAN CELL VOLUME 75 fl (80.0-100.0); MEAN CORPUSCULAR HEMOGLOBIN 24 pg (27-31); MEAN CORPUSCULAR HGB CONC 32 g/dl (33.0-37.0); MONO # 0.4 K/mm3 (0.1-0.6); MONO % 6.8 % (1.7-9.3); PLATELET COUNT 239 K/mm3 (130-400); RED BLOOD COUNT 5.45 M/mm3 (4.10-5.30); REDCELL DISTRIBUTION WIDTH-CV 15.2 % (11.5-14.5)
[2021-08-09 06:58] LABS: CALCIUM 9.8 mg/dL (8.4-10.2); CREATININE, serum 0.81 mg/dL (0.57-1.11); POTASSIUM 3.8 mmol/L (3.5-4.5)
--- NOTE | 2021-08-09 08:32 | NUR ---
REPORT RECEIVED FROM RAMIRO HALL; PATIENT CURRENTLY RESTING IN BED AND VITAL SIGNS ARE WITHIN NORMAL LIMITS. NO FLUIDS RUNNING AND DIXON WAS DC'D AND REMOVED LAST NIGHT. PATIENT REMAINS ON INVOLUNTARY HOLD AND WILL MEET WITH DR. REECE FOR EVALUATION SOMETIME TODAY.
--- NOTE | 2021-08-09 13:19 | NUR ---
Patient to be screened by psychiatrist later today.
== END 2021-08-09 19:30 | DRG 918 ==
LOC: COL.ER 20:39 → ICU 21:40
PROVIDERS: Nurse Practitioner Primary Care; Student in an Organized Health Care Education/Training Program; ADMIT Family Medicine
DX: T43.212A Poisoning by selective serotonin and norepinephrine reuptake inhibitors, intentional self-harm, initial encounter (principal); N39.0 Urinary tract infection, site not specified; Z68.43 Body mass index [BMI] 50.0-59.9, adult; T43.592A Poisoning by other antipsychotics and neuroleptics, intentional self-harm, initial encounter; F41.9 Anxiety disorder, unspecified; F32.A Depression, unspecified; F43.10 Post-traumatic stress disorder, unspecified; F90.9 Attention-deficit hyperactivity disorder, unspecified type; F95.9 Tic disorder, unspecified; G47.00 Insomnia, unspecified; I10 Essential (primary) hypertension; G43.909 Migraine, unspecified, not intractable, without status migrainosus; F60.3 Borderline personality disorder; E87.6 Hypokalemia; R94.31 Abnormal electrocardiogram [ECG] [EKG]; F12.90 Cannabis use, unspecified, uncomplicated; E66.9 Obesity, unspecified; R73.03 Prediabetes; Z90.49 Acquired absence of other specified parts of digestive tract; Z90.710 Acquired absence of both cervix and uterus; Z88.8 Allergy status to other drugs, medicaments and biological substances; Z88.1 Allergy status to other antibiotic agents; Z72.89 Other problems related to lifestyle; Z23 Encounter for immunization
CPT/HCPCS: 99223-AI; 99233-AI; 99238; J0696; J1650; J3475; J3480; J7030

== ENCOUNTER 2021-09-01 18:53 | Emergency (ER) | payer MEDICAID | END 2021-09-01 19:15 | disposition home or self-care (01) | LOC: COL.ER 18:53 | DX: R69 Illness, unspecified (principal) ==

== ENCOUNTER 2021-10-09 19:48 | Emergency (ER) | payer MEDICAID ==
[~2021-10-09] VITALS: Ht 185.4 cm; Wt 154.5 kg
[2021-10-09 20:07] VITALS: TEMP 98.3
[2021-10-09 21:31] LABS: ALBUMIN 3.2 gm/dL (3.5-5.0); BILIRUBIN,TOTAL 0.5 mg/dL (0.2-1.2); CALCIUM 8.8 mg/dL (8.4-10.2); CREATININE, serum 0.74 mg/dL (0.57-1.11); POTASSIUM 3.9 mmol/L (3.5-4.5)
[2021-10-09] MEDS ORDERED: ZOFRAN8 MG PO (22:15)
[2021-10-09 22:26] VITALS: BP 118/78; PULSE 78
== END 2021-10-09 22:27 | disposition home or self-care (01) ==
LOC: COL.ER 19:48
PROVIDERS: Emergency Medicine
DX: I95.1 Orthostatic hypotension (principal); R11.2 Nausea with vomiting, unspecified; Z90.710 Acquired absence of both cervix and uterus
CPT/HCPCS: J1790; J2405; J7120

== ENCOUNTER 2021-10-19 21:16 | Emergency (ER) | payer MEDICAID ==
[~2021-10-19] VITALS: Ht 185.4 cm; Wt 159.1 kg
[2021-10-19 21:19] VITALS: BP 115/77; TEMP 98
[2021-10-19 22:24] VITALS: PULSE 84
== END 2021-10-19 22:25 | disposition home or self-care (01) ==
LOC: COL.ER 21:16
DX: R51.9 Headache, unspecified (principal); F17.210 Nicotine dependence, cigarettes, uncomplicated; Z86.69 Personal history of other diseases of the nervous system and sense organs
CPT/HCPCS: J0780; J1885

== ENCOUNTER 2021-10-22 19:21 | Emergency (ER) | payer MEDICAID ==
[~2021-10-22] VITALS: Ht 185.4 cm; Wt 159.1 kg
[2021-10-22 19:26] VITALS: TEMP 98.2
[2021-10-22 20:07] LABS: BASO # 0.1 K/mm3 (0.0-0.2); BASO % 0.7 % (0.0-2.0); EOS # 0.2 K/mm3 (0.0-0.7); GRAN # 6.2 K/mm3 (1.4-6.5); GRAN % 68.6 % (42.2-75.2); HEMATOCRIT 40.6 % (37.0-47.0); MEAN CELL VOLUME 78 fl (80.0-100.0); MEAN CORPUSCULAR HEMOGLOBIN 25 pg (27-31); MEAN CORPUSCULAR HGB CONC 32 g/dl (33.0-37.0); MONO # 0.5 K/mm3 (0.1-0.6); MONO % 5.7 % (1.7-9.3); PLATELET COUNT 236 K/mm3 (130-400); RED BLOOD COUNT 5.21 M/mm3 (4.10-5.30); REDCELL DISTRIBUTION WIDTH-CV 15.4 % (11.5-14.5)
[2021-10-22 20:22] LABS: ALBUMIN 3.2 gm/dL (3.5-5.0); BILIRUBIN,TOTAL 0.4 mg/dL (0.2-1.2); C-REACTIVE PROTEIN 2.37 mg/dL (0.00-0.50); CREATININE, serum 0.77 mg/dL (0.57-1.11); POTASSIUM 3.6 mmol/L (3.5-4.5); TOTAL PROTEIN 7.4 gm/dL (6.2-8.1)
[2021-10-22 20:39] LABS: COLLECTION METHOD CLEAN CATCH
[2021-10-22 20:52] LABS: URINE APPEARANCE Hazy (CLEAR/HAZY); URINE BLOOD Negative (NEGATIVE); URINE COLOR Yellow (YELLOW); URINE GLUCOSE Negative (NEGATIVE); URINE KETONE Negative (NEGATIVE); URINE NITRATE Negative (NEGATIVE); URINE PROTEIN(semi-quant) 1+ (NEGATIVE); URINE UROBILINOGEN 0.2 E.U/dL (0.2-1.0)
[2021-10-22 20:55] LABS: MUCOUS Present (NOT PRESENT); SQUAMOUS EPITHELIAL 20-50 /hpf (0-10); URINE BACTERIA Rare /hpf (NONE SEEN)
[2021-10-22 21:15] VITALS: BP 114/63; PULSE 97
== END 2021-10-22 21:15 | disposition home or self-care (01) ==
LOC: COL.ER 19:21
PROVIDERS: Nurse Practitioner Primary Care
DX: R11.2 Nausea with vomiting, unspecified (principal)
CPT/HCPCS: J2550; J7030

== ENCOUNTER 2021-11-20 19:22 | Emergency (ER) | payer MEDICAID ==
[~2021-11-20] VITALS: Ht 185.4 cm; Wt 159.1 kg
[2021-11-20 19:32] VITALS: TEMP 97.6
[2021-11-20 21:50] LABS: BASO # 0.1 K/mm3 (0.0-0.2); BASO % 0.5 % (0.0-2.0); EOS # 0.3 K/mm3 (0.0-0.7); EOS % 1.8 % (0.0-4.0); GRAN # 9.7 K/mm3 (1.4-6.5); GRAN % 71.5 % (42.2-75.2); HEMATOCRIT 44.5 % (37.0-47.0); HEMOGLOBIN 14.4 g/dl (12.5-16.0); LYMPH # 2.8 K/mm3 (1.2-3.4); LYMPH % 20.4 % (20.0-51.0); MEAN CELL VOLUME 77 fl (80.0-100.0); MEAN CORPUSCULAR HEMOGLOBIN 25 pg (27-31); MEAN CORPUSCULAR HGB CONC 32 g/dl (33.0-37.0); MEAN PLATELET VOLUME 10.8 fl (7.4-10.4); MONO # 0.7 K/mm3 (0.1-0.6); MONO % 4.8 % (1.7-9.3); PLATELET COUNT 267 K/mm3 (130-400); RED BLOOD COUNT 5.82 M/mm3 (4.10-5.30); REDCELL DISTRIBUTION WIDTH-CV 14.8 % (11.5-14.5)
[2021-11-20 22:06] LABS: ALBUMIN 3.8 gm/dL (3.5-5.0); BILIRUBIN,TOTAL 0.7 mg/dL (0.2-1.2); CALCIUM 9.6 mg/dL (8.4-10.2); POTASSIUM 3.8 mmol/L (3.5-4.5)
[2021-11-20 23:39] LABS: CREATININE, serum 0.85 mg/dL (0.57-1.11)
[2021-11-21 00:18] VITALS: BP 141/85; PULSE 75
== END 2021-11-21 00:55 | disposition home or self-care (01) ==
LOC: COL.ER 19:22
PROVIDERS: Emergency Medicine
DX: R11.2 Nausea with vomiting, unspecified (principal); Z88.8 Allergy status to other drugs, medicaments and biological substances
CPT/HCPCS: J2405; J2550; J7120

== ENCOUNTER 2022-03-29 19:11 | Emergency (ER) | payer MEDICAID ==
[~2022-03-29] VITALS: Ht 185.4 cm; Wt 159.1 kg
[2022-03-29 19:16] VITALS: TEMP 98.4
[2022-03-29 20:38] VITALS: BP 136/91; PULSE 98
== END 2022-03-29 20:38 | disposition home or self-care (01) ==
LOC: COL.ER 19:11
DX: M54.50 Low back pain, unspecified (principal); G89.29 Other chronic pain; Z28.310 Unvaccinated for COVID-19
CPT/HCPCS: J2270

== ENCOUNTER 2022-04-02 19:44 | Emergency (ER) | payer MEDICAID ==
[~2022-04-02] VITALS: Ht 185.4 cm; Wt 159.1 kg
[2022-04-02 19:51] VITALS: BP 127/89; TEMP 98.3
[2022-04-02] MEDS ORDERED: FLEXERIL 1010 MG/TAB PO (20:52)
[2022-04-02 20:56] VITALS: PULSE 89
== END 2022-04-02 20:58 | disposition home or self-care (01) ==
LOC: COL.ER 19:44
DX: M54.50 Low back pain, unspecified (principal)
CPT/HCPCS: J2270; J2360

== ENCOUNTER 2022-05-22 21:13 | Emergency (ER) | payer MEDICAID ==
[~2022-05-22] VITALS: Ht 185.4 cm; Wt 159.1 kg
[2022-05-22 21:50] VITALS: BP 135/93; PULSE 108; TEMP 97.4
== END 2022-05-23 00:30 | disposition left against medical advice (07) ==
LOC: COL.ER 21:13
DX: R11.0 Nausea (principal)

== ENCOUNTER 2022-06-20 18:18 | Inpatient (IN) | payer MEDICAID ==
[~2022-06-20] VITALS: Ht 185.4 cm; Wt 157.8 kg
[2022-06-20 19:22] LABS: COLLECTION METHOD CLEAN CATCH
[2022-06-20 19:27] LABS: BASO % 0.5 % (0.0-2.0); EOS # 0.1 K/mm3 (0.0-0.7); EOS % 1.8 % (0.0-4.0); GRAN # 3.9 K/mm3 (1.4-6.5); GRAN % 69.1 % (42.2-75.2); HEMATOCRIT 39.8 % (37.0-47.0); HEMOGLOBIN 12.6 g/dl (12.5-16.0); LYMPH # 1.3 K/mm3 (1.2-3.4); LYMPH % 22.5 % (20.0-51.0); MEAN CELL VOLUME 76 fl (80.0-100.0); MEAN CORPUSCULAR HEMOGLOBIN 24 pg (27-31); MEAN CORPUSCULAR HGB CONC 32 g/dl (33.0-37.0); MEAN PLATELET VOLUME 10.7 fl (7.4-10.4); MONO # 0.3 K/mm3 (0.1-0.6); MONO % 5.2 % (1.7-9.3); PLATELET COUNT 234 K/mm3 (130-400); RED BLOOD COUNT 5.25 M/mm3 (4.10-5.30); REDCELL DISTRIBUTION WIDTH-CV 14.7 % (11.5-14.5)
[2022-06-20 19:30] LABS: MUCOUS Present (NOT PRESENT); URINE APPEARANCE Clear (CLEAR/HAZY); URINE BACTERIA Rare /hpf (NONE SEEN); URINE BLOOD Negative (NEGATIVE); URINE COLOR Yellow (YELLOW); URINE GLUCOSE Negative (NEGATIVE); URINE KETONE Negative (NEGATIVE); URINE NITRATE Negative (NEGATIVE); URINE PROTEIN(semi-quant) 2+ (NEGATIVE); URINE RBC 0-2 /hpf (0-2)
[2022-06-20 19:45] LABS: ALBUMIN 3.4 gm/dL (3.5-5.0); BILIRUBIN,TOTAL 0.4 mg/dL (0.2-1.2); C-REACTIVE PROTEIN 5.34 mg/dL (0.00-0.50); CREATININE, serum 0.8 mg/dL (0.57-1.11); POTASSIUM 3.8 mmol/L (3.5-4.5); TOTAL PROTEIN 7.8 gm/dL (6.2-8.1)
[2022-06-20] MEDS ORDERED: CEFTIN500 MG PO (20:14)
[2022-06-20] MEDS ORDERED: PREDNISONE20 MG PO (20:14)
[2022-06-20] MEDS ORDERED: LAMICTAL200 MG PO (20:59)
[2022-06-20] MEDS ORDERED: CYMBALTA 60MG60 MG PO (20:59)
[2022-06-20] MEDS ORDERED: SEROQUEL300 MG PO (20:59)
[2022-06-20] MEDS ORDERED: PRILOSEC 20MG20 MG PO (21:00)
[2022-06-20] MEDS ORDERED: MELATONIN ER10 MG PO (21:00)
[2022-06-20] MEDS ORDERED: GLUCOTROL XL10 MG PO (21:00)
[2022-06-20] MEDS ORDERED: VRAYLAR6 MG PO (21:00)
[2022-06-20] MEDS ORDERED: PERCOCET 325 MG1 TA2 PO (21:00)
[2022-06-20 21:53] VITALS: BP 149/84; PULSE 102; TEMP 98
[2022-06-20] MEDS ORDERED: SEROQUEL 1100 MG/TAB PO (22:16)
[2022-06-21] VITALS (7 sets, daily range): BP systolic 97–151; BP diastolic 49–85; PULSE 80–113; TEMP 97.8–98.2
[2022-06-21 07:08] LABS: BASO % 0.6 % (0.0-2.0); GRAN # 2.7 K/mm3 (1.4-6.5); GRAN % 78.8 % (42.2-75.2); HEMATOCRIT 37.5 % (37.0-47.0); HEMOGLOBIN 11.4 g/dl (12.5-16.0); LYMPH # 0.6 K/mm3 (1.2-3.4); LYMPH % 17.6 % (20.0-51.0); MEAN CELL VOLUME 78 fl (80.0-100.0); MEAN CORPUSCULAR HEMOGLOBIN 24 pg (27-31); MEAN CORPUSCULAR HGB CONC 30 g/dl (33.0-37.0); MEAN PLATELET VOLUME 11.2 fl (7.4-10.4); MONO # 0.1 K/mm3 (0.1-0.6); MONO % 2.1 % (1.7-9.3); PLATELET COUNT 188 K/mm3 (130-400); REDCELL DISTRIBUTION WIDTH-CV 14.7 % (11.5-14.5)
[2022-06-21 07:24] LABS: CALCIUM 8.5 mg/dL (8.4-10.2); CREATININE, serum 0.84 mg/dL (0.57-1.11)
--- NOTE | 2022-06-21 10:32 | NUR ---
SW met with patient to complete intake and discuss discharge plan. Patients Henrry ([phone]) present at bedside. Together they live in [place] with her 4 children. At this time the children are with their biological father. Patient is fully indepent with her ADL's and IADL's. She does not have home oxygen needs but is currently on 2L at rest. Patient does not utilize any DME to assist with mobility. PCP is and she sees [facility] for her mental health needs. She utilizes [facility] for prescriptions. Patient does not have a DPOA-HC established and does not wish to create one at this time. Patient is planning on returning home once medically ready. Discharge plan: Home
--- NOTE | 2022-06-21 19:33 | NUR ---
Shift assessment done this AM. Patient complained shortness of breth this afternoon. RT is notified and came to see patient and administer breathing treatment. Patient responded well and SOA resolved after treatment. O2 is increased to 3L per nasal cannula. Contact/droplet precaution in place.
[2022-06-22 03:43] VITALS: BP 114/59; PULSE 92; TEMP 98.1
[2022-06-22 07:15] VITALS: BP 138/86; PULSE 96; TEMP 97.7
[2022-06-22 11:51] VITALS: BP 117/54; PULSE 100; TEMP 98
[2022-06-22 15:23] VITALS: BP 127/49; PULSE 83; TEMP 98.7
--- NOTE | 2022-06-22 18:06 | NUR ---
Shift assessment is done this morning. Patient denies any pain or SOB. Patient is on 3L NC. Patient says that she wants to go home and want to be off from O2. This nurse titrated her decreasing her O2 0.5L/2hr. She tolerated untill 1.5L. Her O2 sat fell down to 88% on 1L so I increased to 1.5. Patient is above 92% on 1.5L. Patient walked in au without O2 and her O2 sat was 87%. Put her back to 1L and she is above 92% at this time.
[2022-06-22 19:36] VITALS: BP 140/67; PULSE 100; TEMP 97.8
[2022-06-22 23:49] VITALS: BP 116/44; PULSE 89; TEMP 98.8
--- NOTE | 2022-06-23 02:51 | NUR ---
Shift assessment performed- see documentation. She continues on 1 L O2. Her blood glucose have been WNL and no insulin has been required. She denies having pain. She was reminded to continue using her incentive spirometer every hour while awake. Bed in lowest position and call light within reach.
[2022-06-23 04:01] VITALS: BP 157/57; PULSE 81; TEMP 98.1
[2022-06-23 07:32] VITALS: BP 133/48; PULSE 87; TEMP 98
--- NOTE | 2022-06-23 08:51 | NUR ---
PT RESTING IN BED. PT SATING WELL ON 0.5L NC, O2 REMOVED. PT DENIES NEEDS THIS TIME. CALL LIGHT WITHIN REACH AND PT INSTRUCTED TO CALL WITH ALL NEEDS.
--- NOTE | 2022-06-23 10:50 | NUR ---
NOTIFIED THAT PT REQUIRES 3L OXYGEN WITH ACTIVITY. STATES WILL KEEP PATIENT OVER NIGHT AND RE-ASSESS TOMORROW.
[2022-06-23 11:11] VITALS: BP 150/90; PULSE 90; TEMP 97.6
[2022-06-23] MEDS ORDERED: OMNICEF 300MG300 MG PO (11:44)
[2022-06-23] MEDS ORDERED: DOXYCYCLINE HY100 MG PO (11:45)
--- NOTE | 2022-06-23 11:45 | NUR ---
PT UPDATED ON PLAN. PT STATES SHE REALLY WANTS TO GO HOME TODAY AND IF SHE ISNT DISCHARGE SHE WILL LEAVE AMA. UPDATED. STATES HE WILL GO AHEAD AND DISCHARGE WITH HOME 02. SOCIAL WORK NOTIFIED. PT UPDATED. WILL PLAN DISCHARGE FOR TODAY.
--- NOTE | 2022-06-23 12:09 | NUR ---
DISCHARGE INSTRUCTIONS DISCUSSED WITH PT. ALL QUESTIONS ANSWERED. IV DCD. PHARMACY CALLED TO BRING UP PTS HOME MEDS THAT WERE HELD DURING ADMISSION.
--- NOTE | 2022-06-23 12:44 | NUR ---
YAMILETH consulted with to sign O2 script YAMILETH informed pt call in to [facility] to retrieve o2 prior to discharge. YAMILETH faxed script to [facility].
--- NOTE | 2022-06-23 14:55 | NUR ---
PTS HOME OXYGEN DELIVERED. PT WHEELED OUT FOR DISCHARGE.
== END 2022-06-23 14:55 | disposition home or self-care (01) | DRG 193 ==
LOC: COL.ER 18:18 → MEDICAL 20:27 → EDBEDREQ 21:13 → MEDICAL 23:00
PROVIDERS: Family Medicine; Nurse Practitioner Family; ADMIT Internal Medicine
DX: J12.3 Human metapneumovirus pneumonia (principal); J96.01 Acute respiratory failure with hypoxia; Z68.42 Body mass index [BMI] 45.0-49.9, adult; R04.2 Hemoptysis; E66.01 Morbid (severe) obesity due to excess calories; I10 Essential (primary) hypertension; F41.9 Anxiety disorder, unspecified; F32.A Depression, unspecified; F43.10 Post-traumatic stress disorder, unspecified; G43.909 Migraine, unspecified, not intractable, without status migrainosus; F17.200 Nicotine dependence, unspecified, uncomplicated; E11.9 Type 2 diabetes mellitus without complications; G47.00 Insomnia, unspecified; Z90.710 Acquired absence of both cervix and uterus; Z91.51 Personal history of suicidal behavior; Z90.49 Acquired absence of other specified parts of digestive tract; Z88.1 Allergy status to other antibiotic agents; Z88.0 Allergy status to penicillin; Z88.8 Allergy status to other drugs, medicaments and biological substances; Z23 Encounter for immunization; Z79.84 Long term (current) use of oral hypoglycemic drugs
CPT/HCPCS: A9284; J0696; J1790; J1815; J1885; J2550; J2930; J3475; J7030; Q9967

== ENCOUNTER 2022-07-10 20:29 | Emergency (ER) | payer MEDICAID ==
[~2022-07-10] VITALS: Ht 185.4 cm; Wt 159.1 kg
[~2022-07-10 20:29] MED LIST changes: +CEFTIN500 MG PO; +CYMBALTA 60MG60 MG PO; +DOXYCYCLINE HY100 MG PO; +GLUCOTROL XL10 MG PO; +LAMICTAL200 MG PO; +MELATONIN ER10 MG PO; +PRILOSEC 20MG20 MG PO; +SEROQUEL 1100 MG/TAB PO; +SEROQUEL300 MG PO; +VRAYLAR6 MG PO
[2022-07-10 20:44] VITALS: TEMP 98.4
[2022-07-10 21:21] LABS: COLLECTION METHOD CLEAN CATCH
[2022-07-10 21:27] LABS: MUCOUS Present (NOT PRESENT); PH 7.5 (5.0-8.5); URINE APPEARANCE Clear (CLEAR/HAZY); URINE BACTERIA None Seen /hpf (NONE SEEN); URINE BLOOD Negative (NEGATIVE); URINE COLOR Yellow (YELLOW); URINE GLUCOSE Negative (NEGATIVE); URINE KETONE Negative (NEGATIVE); URINE NITRATE Negative (NEGATIVE); URINE PROTEIN(semi-quant) 1+ (NEGATIVE); URINE RBC 0-2 /hpf (0-2); URINE UROBILINOGEN 0.2 E.U/dL (0.2-1.0)
[2022-07-10 21:47] LABS: BASO # 0.1 K/mm3 (0.0-0.2); BASO % 0.8 % (0.0-2.0); EOS # 0.2 K/mm3 (0.0-0.7); EOS % 1.8 % (0.0-4.0); GRAN # 5.8 K/mm3 (1.4-6.5); GRAN % 62.6 % (42.2-75.2); HEMATOCRIT 40.8 % (37.0-47.0); HEMOGLOBIN 12.9 g/dl (12.5-16.0); LYMPH # 2.6 K/mm3 (1.2-3.4); LYMPH % 28.5 % (20.0-51.0); MEAN CELL VOLUME 77 fl (80.0-100.0); MEAN CORPUSCULAR HEMOGLOBIN 24 pg (27-31); MEAN CORPUSCULAR HGB CONC 32 g/dl (33.0-37.0); MEAN PLATELET VOLUME 11.4 fl (7.4-10.4); MONO # 0.5 K/mm3 (0.1-0.6); MONO % 5.4 % (1.7-9.3); PLATELET COUNT 249 K/mm3 (130-400); RED BLOOD COUNT 5.28 M/mm3 (4.10-5.30); REDCELL DISTRIBUTION WIDTH-CV 15.4 % (11.5-14.5)
[2022-07-10 21:53] LABS: ALBUMIN 3.4 gm/dL (3.5-5.0); BILIRUBIN,TOTAL 0.4 mg/dL (0.2-1.2); CALCIUM 9.2 mg/dL (8.4-10.2); CREATININE, serum 0.77 mg/dL (0.57-1.11); POTASSIUM 3.9 mmol/L (3.5-4.5); TOTAL PROTEIN 7.5 gm/dL (6.2-8.1)
[2022-07-10] MEDS ORDERED: ZOFRAN 4MG T4 MG/TAB PO (22:30)
[2022-07-10] MEDS ORDERED: COLACE 100100 MG/CAP PO (22:30)
[2022-07-10] MEDS ORDERED: BENTYL 20MG20 MG/TAB PO (22:30)
[2022-07-10 22:42] VITALS: BP 128/81; PULSE 80
== END 2022-07-10 22:41 | disposition home or self-care (01) ==
LOC: COL.ER 20:29
PROVIDERS: Emergency Medicine
DX: K59.00 Constipation, unspecified (principal); G89.29 Other chronic pain; E11.9 Type 2 diabetes mellitus without complications; Z90.49 Acquired absence of other specified parts of digestive tract
CPT/HCPCS: J0500; J1885; J2405; J7030; Q9967

== ENCOUNTER 2022-12-15 18:42 | Emergency (ER) | payer MEDICAID ==
[~2022-12-15] VITALS: Ht 185.4 cm; Wt 163.6 kg
[~2022-12-15 18:42] MED LIST changes: +BENTYL 20MG20 MG/TAB PO
[2022-12-15 18:55] VITALS: TEMP 98.1
[2022-12-15 20:24] VITALS: BP 136/75; PULSE 85
== END 2022-12-15 20:24 | disposition home or self-care (01) ==
LOC: COL.ER 18:42
DX: G43.909 Migraine, unspecified, not intractable, without status migrainosus (principal); E66.9 Obesity, unspecified; E11.9 Type 2 diabetes mellitus without complications; Z79.4 Long term (current) use of insulin; Z68.42 Body mass index [BMI] 45.0-49.9, adult
CPT/HCPCS: J0780; J1200; J1885

== ENCOUNTER 2023-01-04 20:15 | Emergency (ER) | payer MEDICAID ==
[~2023-01-04] VITALS: Ht 185.4 cm; Wt 159.1 kg
[2023-01-04 20:39] LABS: BASO # 0.1 K/mm3 (0.0-0.2); BASO % 0.6 % (0.0-2.0); EOS # 0.2 K/mm3 (0.0-0.7); EOS % 1.6 % (0.0-4.0); GRAN # 7.4 K/mm3 (1.4-6.5); GRAN % 68.3 % (42.2-75.2); HEMATOCRIT 42.7 % (37.0-47.0); HEMOGLOBIN 13.7 g/dl (12.5-16.0); LYMPH # 2.6 K/mm3 (1.2-3.4); LYMPH % 24.2 % (20.0-51.0); MEAN CELL VOLUME 77 fl (80.0-100.0); MEAN CORPUSCULAR HEMOGLOBIN 25 pg (27-31); MEAN CORPUSCULAR HGB CONC 32 g/dl (33.0-37.0); MEAN PLATELET VOLUME 11.2 fl (7.4-10.4); MONO # 0.5 K/mm3 (0.1-0.6); MONO % 4.3 % (1.7-9.3); PLATELET COUNT 255 K/mm3 (130-400); RED BLOOD COUNT 5.53 M/mm3 (4.10-5.30); REDCELL DISTRIBUTION WIDTH-CV 15.3 % (11.5-14.5)
[2023-01-04] MEDS ORDERED: VRAYLAR4.5 MG PO (20:51)
[2023-01-04 20:58] LABS: ALANINE AMINOTRANSFERASE 50 U/L (0-55); ALBUMIN 3.5 gm/dL (3.5-5.0); ALKALINE PHOSPHATASE 129 U/L (40-150); ANION GAP 12 mmol/L (7-16); AST,SGOT 45 U/L (5-34); BILIRUBIN,TOTAL 0.5 mg/dL (0.2-1.2); BLOOD UREA NITROGEN 8 mg/dL (7-19); CALCIUM 9.6 mg/dL (8.4-10.2); CARBON DIOXIDE 24 mmol/L (22-29); CHLORIDE 103 mmol/L (98-107); CREATININE, serum 0.86 mg/dL (0.57-1.11); GLUCOSE 226 mg/dL (70-99); LIPASE 21 U/L (8-78); POTASSIUM 4.3 mmol/L (3.5-4.5); SODIUM 139 mmol/L (136-145); TOTAL PROTEIN 8.1 gm/dL (6.2-8.1)
[2023-01-04 21:05] LABS: TROPONIN-I < 0.010 ng/mL (0.00-0.033)
[2023-01-04 23:13] VITALS: BP 117/61; PULSE 103; TEMP 98.8
== END 2023-01-04 23:13 | disposition home or self-care (01) ==
LOC: COL.ER 20:15
PROVIDERS: Nurse Practitioner Primary Care
DX: K52.9 Noninfective gastroenteritis and colitis, unspecified (principal); Z90.49 Acquired absence of other specified parts of digestive tract
CPT/HCPCS: J2405; J2550; J7030

== ENCOUNTER 2023-03-06 07:03 | Emergency (ER) | payer BC, MEDICAID ==
[~2023-03-06] VITALS: Ht 185.4 cm; Wt 159.1 kg
[~2023-03-06 07:03] MED LIST changes: +VRAYLAR4.5 MG PO
[2023-03-06 07:09] VITALS: TEMP 98.8
[2023-03-06] MEDS ORDERED: TESSALON PERLE200 MG PO (07:31)
[2023-03-06] MEDS ORDERED: ZITHROMAX Z PA250 MG PO (08:12)
[2023-03-06 08:31] VITALS: BP 127/87; PULSE 91
== END 2023-03-06 08:34 | disposition home or self-care (01) ==
LOC: COL.ER 07:03
DX: J18.9 Pneumonia, unspecified organism (principal); Z88.0 Allergy status to penicillin

== ENCOUNTER 2023-03-28 20:22 | Emergency (ER) | payer BC, MEDICAID ==
[~2023-03-28] VITALS: Ht 185.4 cm; Wt 159.5 kg
[~2023-03-28 20:22] MED LIST changes: +TESSALON PERLE200 MG PO; +ZITHROMAX Z PA250 MG PO
[2023-03-28 20:27] VITALS: TEMP 98.6
[2023-03-28 20:52] LABS: COLLECTION METHOD CLEAN CATCH
[2023-03-28 21:23] LABS: BASO # 0.1 K/mm3 (0.0-0.2); BASO % 0.5 % (0.0-2.0); EOS # 0.2 K/mm3 (0.0-0.7); EOS % 2.3 % (0.0-4.0); GRAN # 7.4 K/mm3 (1.4-6.5); GRAN % 73.8 % (42.2-75.2); HEMATOCRIT 41.9 % (37.0-47.0); HEMOGLOBIN 13.1 g/dl (12.5-16.0); LYMPH # 1.8 K/mm3 (1.2-3.4); LYMPH % 18.2 % (20.0-51.0); MEAN CELL VOLUME 79 fl (80.0-100.0); MEAN CORPUSCULAR HEMOGLOBIN 25 pg (27-31); MEAN CORPUSCULAR HGB CONC 31 g/dl (33.0-37.0); MEAN PLATELET VOLUME 10.7 fl (7.4-10.4); MONO # 0.5 K/mm3 (0.1-0.6); MONO % 4.6 % (1.7-9.3); PLATELET COUNT 251 K/mm3 (130-400); RED BLOOD COUNT 5.34 M/mm3 (4.10-5.30); REDCELL DISTRIBUTION WIDTH-CV 14.8 % (11.5-14.5)
[2023-03-28 21:28] LABS: URINE APPEARANCE Clear (CLEAR/HAZY); URINE COLOR Yellow (YELLOW); URINE GLUCOSE Negative (NEGATIVE); URINE KETONE Negative (NEGATIVE); URINE PROTEIN(semi-quant) TRACE (NEGATIVE)
[2023-03-28 21:29] LABS: URINE BLOOD Negative (NEGATIVE); URINE NITRATE Negative (NEGATIVE); URINE RBC None Seen /hpf (0-2)
[2023-03-28 21:29] LABS: ALBUMIN 3.1 gm/dL (3.5-5.0); BILIRUBIN,TOTAL 0.5 mg/dL (0.2-1.2); CALCIUM 8.8 mg/dL (8.4-10.2); CREATININE, serum 0.74 mg/dL (0.57-1.11); POTASSIUM 4.1 mmol/L (3.5-4.5)
[2023-03-28] MEDS ORDERED: NS 1,000 ML IV ONE (21:45)
[2023-03-28] MEDS ORDERED: Ondansetron 4 MG/2 ML VIAL IV ONE (21:45)
[2023-03-28] MEDS ORDERED: Home Ondansetron ODT 4 MG #2 ODT/PACK PO ONE (23:30)
[2023-03-28 23:55] VITALS: BP 132/81; PULSE 119
== END 2023-03-28 23:55 | disposition home or self-care (01) ==
LOC: COL.ER 20:22
PROVIDERS: Nurse Practitioner Primary Care
DX: K52.9 Noninfective gastroenteritis and colitis, unspecified (principal); R00.0 Tachycardia, unspecified; E11.9 Type 2 diabetes mellitus without complications
CPT/HCPCS: J0780; J2405; J7030

== ENCOUNTER 2023-04-06 20:46 | Emergency (ER) | payer BC, MEDICAID ==
[~2023-04-06] VITALS: Ht 185.4 cm; Wt 159.1 kg
[2023-04-06 20:47] VITALS: TEMP 97.7
[2023-04-06 20:59] LABS: HEMATOCRIT 41.6 % (37.0-47.0); HEMOGLOBIN 12.7 g/dl (12.5-16.0); MEAN CELL VOLUME 79 fl (80.0-100.0); MEAN CORPUSCULAR HEMOGLOBIN 24 pg (27-31); MEAN CORPUSCULAR HGB CONC 31 g/dl (33.0-37.0); MEAN PLATELET VOLUME 11.2 fl (7.4-10.4); PLATELET COUNT 241 K/mm3 (130-400); RED BLOOD COUNT 5.27 M/mm3 (4.10-5.30); REDCELL DISTRIBUTION WIDTH-CV 14.4 % (11.5-14.5)
[2023-04-06 21:21] LABS: ALANINE AMINOTRANSFERASE 46 U/L (0-55); ALBUMIN 3.2 gm/dL (3.5-5.0); ALKALINE PHOSPHATASE 132 U/L (40-150); ANION GAP 11 mmol/L (7-16); AST,SGOT 41 U/L (5-34); BILIRUBIN,TOTAL 0.6 mg/dL (0.2-1.2); BLOOD UREA NITROGEN 10 mg/dL (7-19); CALCIUM 9.5 mg/dL (8.4-10.2); CARBON DIOXIDE 25 mmol/L (22-29); CHLORIDE 104 mmol/L (98-107); CREATININE, serum 0.79 mg/dL (0.57-1.11); GLUCOSE 169 mg/dL (70-99); LIPASE 16 U/L (8-78); POTASSIUM 3.6 mmol/L (3.5-4.5); SODIUM 140 mmol/L (136-145); TOTAL PROTEIN 7.4 gm/dL (6.2-8.1)
[2023-04-06 21:29] LABS: TROPONIN-I < 0.010 ng/mL (0.00-0.033)
[2023-04-06] MEDS ORDERED: NS 1,000 ML IV ONE (21:30)
[2023-04-06 21:40] LABS: BAND 2 % (0-10); EOSINOPHIL 4 % (0-4); HYPOCHROMIA 2+; LYMPHOCYTE 26 % (20.0-51.0); MICROCYTOSIS 1+; NEUTROPHILS 65 % (42.0-75.2); PLATELET ESTIMATE NORMAL (NORMAL)
[2023-04-06 22:03] LABS: COLLECTION METHOD CLEAN CATCH
[2023-04-06 22:20] LABS: MUCOUS Present (NOT PRESENT); URINE APPEARANCE Clear (CLEAR/HAZY); URINE BACTERIA Occasional /hpf (NONE SEEN); URINE BLOOD TRACE-INTACT (NEGATIVE); URINE COLOR Yellow (YELLOW); URINE GLUCOSE Negative (NEGATIVE); URINE KETONE Negative (NEGATIVE); URINE NITRATE Negative (NEGATIVE); URINE PROTEIN(semi-quant) 2+ (NEGATIVE); URINE UROBILINOGEN 0.2 E.U/dL (0.2-1.0)
[2023-04-06 22:25] VITALS: BP 106/65; PULSE 88
== END 2023-04-06 22:25 | disposition home or self-care (01) ==
LOC: COL.ER 20:46
PROVIDERS: Nurse Practitioner Primary Care
DX: R42 Dizziness and giddiness (principal); R11.0 Nausea; E11.9 Type 2 diabetes mellitus without complications
CPT/HCPCS: J0780; J7030

== ENCOUNTER 2023-05-07 20:40 | Emergency (ER) | payer MEDICAID ==
[~2023-05-07] VITALS: Ht 185.4 cm; Wt 172.7 kg
[2023-05-07 20:47] VITALS: TEMP 98.4
[2023-05-07] MEDS ORDERED: NS 1,000 ML IV ONE (21:30)
[2023-05-07] MEDS ORDERED: droPERidol 2.5 MG/ML 2 ML VIAL IV ONE (21:30)
[2023-05-07 22:14] VITALS: BP 119/60; PULSE 95
== END 2023-05-07 22:16 | disposition home or self-care (01) ==
LOC: COL.ER 20:40
DX: J06.9 Acute upper respiratory infection, unspecified (principal); R11.10 Vomiting, unspecified; R19.7 Diarrhea, unspecified
CPT/HCPCS: J1790; J7030

== ENCOUNTER 2023-05-20 19:15 | Emergency (ER) | payer MEDICAID ==
[~2023-05-20] VITALS: Ht 185.4 cm; Wt 163.6 kg
[2023-05-20] MEDS ORDERED: NS 1,000 ML IV ONE (19:45)
[2023-05-20] MEDS ORDERED: diphenhydrAMINE 50 MG/ML 1 ML VIAL IV ONE (19:45)
[2023-05-20] MEDS ORDERED: Ketorolac 30 MG/ML VIAL IV ONE (19:45)
[2023-05-20] MEDS ORDERED: dexAMETHasone 10 MG/ML VIAL IV ONE (19:45)
[2023-05-20 19:49] LABS: BASO # 0.1 K/mm3 (0.0-0.2); BASO % 0.5 % (0.0-2.0); EOS # 0.2 K/mm3 (0.0-0.7); EOS % 2.2 % (0.0-4.0); GRAN % 75.7 % (42.2-75.2); HEMATOCRIT 41.3 % (37.0-47.0); HEMOGLOBIN 12.9 g/dl (12.5-16.0); LYMPH # 1.5 K/mm3 (1.2-3.4); LYMPH % 16.6 % (20.0-51.0); MEAN CELL VOLUME 78 fl (80.0-100.0); MEAN CORPUSCULAR HEMOGLOBIN 24 pg (27-31); MEAN CORPUSCULAR HGB CONC 31 g/dl (33.0-37.0); MEAN PLATELET VOLUME 11.3 fl (7.4-10.4); MONO # 0.4 K/mm3 (0.1-0.6); MONO % 4.3 % (1.7-9.3); PLATELET COUNT 227 K/mm3 (130-400); RED BLOOD COUNT 5.28 M/mm3 (4.10-5.30); REDCELL DISTRIBUTION WIDTH-CV 14.8 % (11.5-14.5)
[2023-05-20 19:58] LABS: PARTIAL THROMBOPLASTIN TIME 21.8 SECONDS (26.0-37.0)
[2023-05-20 20:03] LABS: ALANINE AMINOTRANSFERASE 34 U/L (0-55); ALBUMIN 3.1 gm/dL (3.5-5.0); ALKALINE PHOSPHATASE 150 U/L (40-150); ANION GAP 10 mmol/L (7-16); AST,SGOT 22 U/L (5-34); BILIRUBIN,TOTAL 0.4 mg/dL (0.2-1.2); BLOOD UREA NITROGEN 8 mg/dL (7-19); CALCIUM 9.2 mg/dL (8.4-10.2); CARBON DIOXIDE 25 mmol/L (22-29); CHLORIDE 103 mmol/L (98-107); CREATININE, serum 0.83 mg/dL (0.57-1.11); GLUCOSE 250 mg/dL (70-99); LIPASE 38 U/L (8-78); MAGNESIUM 1.7 mg/dL (1.6-2.6); POTASSIUM 3.9 mmol/L (3.5-4.5); SODIUM 138 mmol/L (136-145); TOTAL PROTEIN 7.1 gm/dL (6.2-8.1)
[2023-05-20 20:04] LABS: D-DIMER < 200.00 ng/mLDDu (200-230)
[2023-05-20 20:18] LABS: COLLECTION METHOD CLEAN CATCH
[2023-05-20 20:23] LABS: THYROID STIMULATING HORMONE 1.711 uIU/mL (0.350-4.940)
[2023-05-20 20:25] LABS: TROPONIN-I < 0.010 ng/mL (0.00-0.033)
[2023-05-20 20:28] LABS: URINE APPEARANCE CLEAR (CLEAR/HAZY); URINE BLOOD NEGATIVE (NEGATIVE); URINE COLOR YELLOW (YELLOW); URINE GLUCOSE NEGATIVE (NEGATIVE); URINE KETONE NEGATIVE (NEGATIVE); URINE NITRATE NEGATIVE (NEGATIVE); URINE PROTEIN(semi-quant) TRACE (NEGATIVE)
[2023-05-20] MEDS ORDERED: OMNICEF 300MG300 MG PO (22:03)
[2023-05-20] MEDS ORDERED: FLONASEALLERGY NS (22:03)
[2023-05-20 22:25] VITALS: BP 151/90; PULSE 86; TEMP 98.7
== END 2023-05-20 22:25 | disposition home or self-care (01) ==
LOC: COL.ER 19:15
PROVIDERS: Internal Medicine
DX: R55 Syncope and collapse (principal); J01.80 Other acute sinusitis; G43.109 Migraine with aura, not intractable, without status migrainosus; R06.02 Shortness of breath; E66.01 Morbid (severe) obesity due to excess calories; Z68.42 Body mass index [BMI] 45.0-49.9, adult; Z88.0 Allergy status to penicillin
CPT/HCPCS: J0780; J1100; J1200; J1885; J3475; J7030

== ENCOUNTER 2023-06-12 13:38 | Inpatient (IN) | payer MEDICAID ==
[2023-06-12] VITALS (50 sets, daily range): BP systolic 98–125; BP diastolic 58–90; PULSE 121–146; TEMP 97.5; O2SAT 91–97
[~2023-06-12] VITALS: Ht 185.4 cm; Wt 165.3 kg
[~2023-06-12 13:38] MED LIST changes: +FLONASEALLERGY NS
[2023-06-12 14:15] LABS: BASO # 0.1 K/mm3 (0.0-0.2); BASO % 0.5 % (0.0-2.0); EOS # 0.2 K/mm3 (0.0-0.7); HEMOGLOBIN 13.9 g/dl (12.5-16.0); LYMPH % 20.4 % (20.0-51.0); MEAN CELL VOLUME 76 fl (80.0-100.0); MEAN CORPUSCULAR HEMOGLOBIN 25 pg (27-31); MEAN CORPUSCULAR HGB CONC 32 g/dl (33.0-37.0); MEAN PLATELET VOLUME 11.3 fl (7.4-10.4); MONO # 0.5 K/mm3 (0.1-0.6); MONO % 5.2 % (1.7-9.3); PLATELET COUNT 250 K/mm3 (130-400); RED BLOOD COUNT 5.65 M/mm3 (4.10-5.30); REDCELL DISTRIBUTION WIDTH-CV 15.1 % (11.5-14.5)
[2023-06-12] MEDS ORDERED: LR 1,000 ML IV ONE (14:45)
[2023-06-12 14:46] LABS: COLLECTION METHOD CLEAN CATCH
[2023-06-12 14:54] LABS: URINE APPEARANCE CLOUDY (CLEAR/HAZY); URINE BLOOD NEGATIVE (NEGATIVE); URINE COLOR YELLOW (YELLOW); URINE GLUCOSE NEGATIVE (NEGATIVE); URINE KETONE NEGATIVE (NEGATIVE); URINE NITRATE NEGATIVE (NEGATIVE); URINE PROTEIN(semi-quant) 2+ (NEGATIVE); URINE UROBILINOGEN 0.2 E.U/dL (0.2-1.0)
[2023-06-12 17:00] LABS: ALANINE AMINOTRANSFERASE 53 U/L (0-55); ALBUMIN 3.3 g/dL (3.5-5.0); ALKALINE PHOSPHATASE 136 U/L (40-150); ANION GAP 13 mmol/L (7-16); AST,SGOT 41 U/L (5-34); BILIRUBIN,TOTAL 0.5 mg/dL (0.2-1.2); BLOOD UREA NITROGEN 11 mg/dL (7-19); CALCIUM 9.6 mg/dL (8.4-10.2); CHLORIDE 103 mEq/L (98-107); CREATININE, serum 0.82 mg/dL (0.57-1.11); GLUCOSE 292 mg/dL (70-99); LIPASE 42 U/L (8-78); MAGNESIUM 1.5 mg/dL (1.6-2.6); POTASSIUM 3.9 mEq/L (3.5-4.5); SODIUM 139 mEq/L (136-145); TOTAL PROTEIN 7.5 g/dl (6.2-8.1)
[2023-06-12 17:05] LABS: ALCOHOL(ethanol),MEDICAL < 10 mg/dL (0-10); SALICYLATE < 5.0 mg/dL (15.0-30.0)
[2023-06-12] MEDS ORDERED: Magnesium Sulfate 4% 50 ML IV ONE (17:15)
[2023-06-12] MEDS ORDERED: LR 1,000 ML IV SCH (18:15)
[2023-06-12] MEDS ORDERED: LORazepam 2 MG/ML 1 ML VIAL IV PRN ×2 (18:30)
--- NOTE | 2023-06-12 18:41 | NUR ---
PT ADMITTED FROM ED AT 1835. PT IS ABLE TO SCOOT FROM ED COT TO ICU MED W/ ASSISTANCE FROM STAFF. PT IS DROWSY AND TEARFUL BUT IS ABLE TO ANSWER QUESTIONS DURING PROVIDER INTAKE. ROOM MADE APPROPRIATE FOR SUICIDE PRECAUTIONS, BED ALARM ON.
[2023-06-12] MEDS ORDERED: INSULIN AS100 UNIT/3 SQ (18:59)
[2023-06-12] MEDS ORDERED: SEMGLEE (Y100 UNIT/2 SQ (19:00)
[2023-06-12] MEDS ORDERED: VRAYLAR6 MG PO (19:01)
[2023-06-12] MEDS ORDERED: SEROQUEL 1100 MG/TAB PO (19:07)
[2023-06-12] MEDS ORDERED: Glucagon 1 MG VIAL IM PRN (19:30)
[2023-06-12] MEDS ORDERED: Dextrose (Glucose) 15 GM (4 x 3.75 GM) Chewable TABLET PACK PO PRN (19:30)
[2023-06-12] MEDS ORDERED: Dextrose 50% Water 25 GM/50 ML SYRINGE IV PRN (19:30)
[2023-06-12 19:55] LABS: CALCIUM 9.2 mg/dL (8.4-10.2); CREATININE, serum 0.82 mg/dL (0.57-1.11)
[2023-06-12] MEDS ORDERED: Insulin Regular Human (NovoLIN R/HumuLIN R) IV ONE (20:15)
--- NOTE | 2023-06-12 20:15 | NUR ---
Talked to poison control and they had some recommendations. Was told that they would like the potassium to be at least at 4 and Mag at least to 2. The last QTc from the most recent EKG was greater than 500. They stated if the nexts EKG QTc was greater than 500 to give another gram of Mag.
--- NOTE | 2023-06-12 20:30 | NUR ---
Received report from RAMIRO Sumner at 1950. Pt is lying in bed with night hospitalist in the room. Pt is able to wake up but will quickly fall asleep and not able to answer questions. Pt oriented to self but was not able to stay up to answer other questions. Unable to do the pt's med rec and verifiy the pharmacy and allergies due to pt unable to stay awake to answer questions. Pt has facial and body piercings in. Pt is currently lying in bed with the bed alarms on and this nurse sitting as a one to one. Pt on 2L O2 via NC. Will continue with pt care.
[2023-06-12] MEDS ORDERED: Insulin Glargine-ygfn (Lantus) SQ SCH (21:00)
[2023-06-12 22:14] LABS: TRICYCLIC ANTIDEPRESS URINE POSITIVE (NEGATIVE)
[2023-06-13] VITALS (290 sets, daily range): BP systolic 102–134; BP diastolic 63–82; PULSE 89–98; TEMP 97.5–98.3; O2SAT 87–100
[2023-06-13] MEDS ORDERED: Insulin Lispro (HumaLOG) SQ SCH ×5 (04:00→12:00)
[2023-06-13 04:26] LABS: BASO % 0.4 % (0.0-2.0); EOS # 0.1 K/mm3 (0.0-0.7); EOS % 1.1 % (0.0-4.0); GRAN % 72.5 % (42.2-75.2); HEMATOCRIT 36.6 % (37.0-47.0); HEMOGLOBIN 12.1 g/dl (12.5-16.0); LYMPH # 1.9 K/mm3 (1.2-3.4); LYMPH % 19.3 % (20.0-51.0); MEAN CELL VOLUME 74 fl (80.0-100.0); MEAN CORPUSCULAR HEMOGLOBIN 25 pg (27-31); MEAN CORPUSCULAR HGB CONC 33 g/dl (33.0-37.0); MONO # 0.6 K/mm3 (0.1-0.6); PLATELET COUNT 223 K/mm3 (130-400); RED BLOOD COUNT 4.92 M/mm3 (4.10-5.30); REDCELL DISTRIBUTION WIDTH-CV 15.4 % (11.5-14.5)
[2023-06-13 04:41] LABS: CALCIUM 9.3 mg/dL (8.4-10.2); CREATININE, serum 0.75 mg/dL (0.57-1.11)
--- NOTE | 2023-06-13 06:36 | NUR ---
Pt had an uneventful night. Pt is now on room air. Pt is alert and oriented x4. Pt has been sleeping most of the night and would wake up thorughout to go to the bathroom. Pt's vitals were stable throughout the night. Pt is currently resting in bed with the bed alarms on. Will give report to day shift nurse.
--- NOTE | 2023-06-13 07:15 | NUR ---
PT RESTING IN BED WITH CHEST RISE NOTED. ALL VITALS WNL AND STABLE. Q15MIN CHECKS IN PLACE. IV LR CURRENTLY INFUSING. ALL SUICIDE RISK EQUIPMENT CLEARED OUT OF ROOM. PLAN OF CARE ONGOING.
[2023-06-13] MEDS ORDERED: Pantoprazole 40 MG in NS 10 ML IV SCH (09:00)
[2023-06-13] MEDS ORDERED: PERCOCET 325 MG1 TA2 PO (10:10)
[2023-06-13] MEDS ORDERED: Magnesium Sulfate 4 GM/50 ML IV SOLN IV ONE (11:30)
--- NOTE | 2023-06-13 12:13 | NUR ---
Q15 MIN SUICIDE CHECKS D/C BY DR. Amaury TAVERAS. PT RESTING AWAKE IN BED AT THE MOMENT. NO SIGNS OF DITRESS. VITALS STABLE AND WNL. OBSERVATION CONTINUED. PT IN PAPER SCRUBS, ALL SUICIDE PRECAUTIONS IN PLACE. PLAN OF CARE ONGOING.
--- NOTE | 2023-06-13 14:55 | NUR ---
PT DISCHARGED. ALL DISCHARGE INSTRUCTIONS REVIEWED AND UNDERSTOOF BY PT. PT BROUGHT OUT TO HUSBANDS CAR VIA WHEELCHAIR. IV DISCONTINUED. ALL BELONGINGS WITH PT. [facility] HAS BEEN CALLED ABOUT PT ARRIVAL TIME. VITALS STABLE AND WNL.
--- NOTE | 2023-06-13 16:01 | NUR ---
odd jobs day worker was notified patient will need [employer] screen when patient is medically ready for discharge due to suicide attempt. SW met with patient to discuss discharge planning. Patient lives in [place] with her and children. is Henrry, P# [phone]. PCP is Dr. Giles, pharmacy is [facility]. Patient reports she has significant issues affording her medications as she has been struggling to get her insurance to cover her medications. Insurance is [employer]. No DPOA-HC and not interested in completing one at this time. No DME. Patient is independent with ADLS and is able to transport herself to and from appointments. Patient reports she has recently started therapy services through [facility]. SW notified patient that she would need to have a [employer] screen prior to discharge, patient is understanding. Patient reports she wanted to harm herself yesterday due to financial issues with affording medications and she had an argument with her yesterday. SW reviewed notes, patient was taken to the [facility] via family transport. SW made CPS report due to patient having children in the home with a suicide attempt. Intake ID: [id number] Discharge plan: [facility]
== END 2023-06-13 14:55 | DRG 918 ==
LOC: COL.ER 13:38 → ICU 18:20
PROVIDERS: Emergency Medicine; Nurse Practitioner Family; ADMIT Internal Medicine
DX: T43.592A Poisoning by other antipsychotics and neuroleptics, intentional self-harm, initial encounter (principal); Z68.42 Body mass index [BMI] 45.0-49.9, adult; E66.01 Morbid (severe) obesity due to excess calories; I10 Essential (primary) hypertension; F41.9 Anxiety disorder, unspecified; F32.A Depression, unspecified; F43.10 Post-traumatic stress disorder, unspecified; Z20.822 Contact with and (suspected) exposure to COVID-19; E11.9 Type 2 diabetes mellitus without complications; G43.909 Migraine, unspecified, not intractable, without status migrainosus; F90.9 Attention-deficit hyperactivity disorder, unspecified type; F17.210 Nicotine dependence, cigarettes, uncomplicated; I45.81 Long QT syndrome; F95.9 Tic disorder, unspecified; E83.42 Hypomagnesemia; Z90.49 Acquired absence of other specified parts of digestive tract; Z90.710 Acquired absence of both cervix and uterus; Z91.51 Personal history of suicidal behavior; Z88.1 Allergy status to other antibiotic agents; Z88.0 Allergy status to penicillin; Z88.8 Allergy status to other drugs, medicaments and biological substances; Z23 Encounter for immunization
CPT/HCPCS: C9113; J1650; J1815; J3475; J7120

== ENCOUNTER 2023-09-19 19:18 | Emergency (ER) | payer MEDICAID ==
[~2023-09-19] VITALS: Ht 185.4 cm; Wt 163.6 kg
[~2023-09-19 19:18] MED LIST changes: +INSULIN AS100 UNIT/3 SQ; +SEMGLEE (Y100 UNIT/2 SQ
[2023-09-19 19:22] VITALS: TEMP 96.8
[2023-09-19 19:39] LABS: COLLECTION METHOD CLEAN CATCH
[2023-09-19 19:48] LABS: URINE APPEARANCE CLEAR (CLEAR/HAZY); URINE BLOOD NEGATIVE (NEGATIVE); URINE COLOR YELLOW (YELLOW); URINE GLUCOSE TRACE (NEGATIVE); URINE KETONE NEGATIVE (NEGATIVE); URINE NITRATE NEGATIVE (NEGATIVE); URINE PROTEIN(semi-quant) 1+ (NEGATIVE)
[2023-09-19 20:24] VITALS: BP 148/103; PULSE 102
== END 2023-09-19 20:24 | disposition home or self-care (01) ==
LOC: COL.ER 19:18
PROVIDERS: Nurse Practitioner
DX: M54.42 Lumbago with sciatica, left side (principal); E66.01 Morbid (severe) obesity due to excess calories; Z68.42 Body mass index [BMI] 45.0-49.9, adult

== ENCOUNTER 2023-10-16 20:04 | Emergency (ER) | payer MEDICAID ==
[~2023-10-16] VITALS: Ht 185.4 cm; Wt 163.6 kg
[2023-10-16 20:09] VITALS: TEMP 98.6
[2023-10-16] MEDS ORDERED: NS 1,000 ML IV ONE (21:45)
[2023-10-16 21:57] LABS: BASO # 0.1 K/mm3 (0.0-0.2); BASO % 0.5 % (0.0-2.0); EOS # 0.2 K/mm3 (0.0-0.7); EOS % 1.4 % (0.0-4.0); GRAN # 8.5 K/mm3 (1.4-6.5); GRAN % 70.6 % (42.2-75.2); HEMATOCRIT 42.4 % (37.0-47.0); HEMOGLOBIN 13.6 g/dl (12.5-16.0); LYMPH # 2.6 K/mm3 (1.2-3.4); LYMPH % 22.1 % (20.0-51.0); MEAN CELL VOLUME 77 fl (80.0-100.0); MEAN CORPUSCULAR HEMOGLOBIN 25 pg (27-31); MEAN CORPUSCULAR HGB CONC 32 g/dl (33.0-37.0); MONO # 0.6 K/mm3 (0.1-0.6); MONO % 4.6 % (1.7-9.3); PLATELET COUNT 255 K/mm3 (130-400); RED BLOOD COUNT 5.53 M/mm3 (4.10-5.30); REDCELL DISTRIBUTION WIDTH-CV 14.6 % (11.5-14.5)
[2023-10-16] MEDS ORDERED: Promethazine 50 MG/ML 1 ML VIAL IM ONE (22:00)
[2023-10-16] MEDS ORDERED: droPERidol 2.5 MG/ML 2 ML VIAL IV ONE (22:00)
[2023-10-16 22:13] LABS: ALBUMIN 3.3 g/dL (3.5-5.0); BILIRUBIN,TOTAL 0.5 mg/dL (0.2-1.2); C-REACTIVE PROTEIN 4.88 mg/dL (0.00-0.50); CALCIUM 9.4 mg/dL (8.4-10.2); CREATININE, serum 0.79 mg/dL (0.57-1.11); POTASSIUM 3.7 mEq/L (3.5-4.5); TOTAL PROTEIN 7.8 g/dl (6.2-8.1)
[2023-10-16 22:41] LABS: COLLECTION METHOD CLEAN CATCH
[2023-10-16 22:53] LABS: URINE APPEARANCE CLOUDY (CLEAR/HAZY); URINE BLOOD NEGATIVE (NEGATIVE); URINE COLOR YELLOW (YELLOW); URINE GLUCOSE NEGATIVE (NEGATIVE); URINE KETONE TRACE (NEGATIVE); URINE NITRATE NEGATIVE (NEGATIVE); URINE PROTEIN(semi-quant) 2+ (NEGATIVE)
[2023-10-16 23:43] VITALS: BP 126/66; PULSE 109
== END 2023-10-16 23:43 | disposition home or self-care (01) ==
LOC: COL.ER 20:04
PROVIDERS: Nurse Practitioner
DX: R11.2 Nausea with vomiting, unspecified (principal)
CPT/HCPCS: J1790; J7030

== ENCOUNTER 2023-11-17 21:10 | Emergency (ER) | payer MEDICAID ==
[~2023-11-17] VITALS: Ht 185.4 cm; Wt 163.6 kg
[2023-11-17 21:21] VITALS: TEMP 99.1
[2023-11-17] MEDS ORDERED: NS 1,000 ML IV ONE (21:30)
[2023-11-17] MEDS ORDERED: Ondansetron 4 MG/2 ML VIAL IV ONE (22:00)
[2023-11-17 22:09] LABS: BASO # 0.1 K/mm3 (0.0-0.2); BASO % 0.4 % (0.0-2.0); EOS # 0.2 K/mm3 (0.0-0.7); EOS % 1.3 % (0.0-4.0); GRAN # 10.7 K/mm3 (1.4-6.5); GRAN % 72.9 % (42.2-75.2); HEMATOCRIT 43.1 % (37.0-47.0); HEMOGLOBIN 13.9 g/dl (12.5-16.0); LYMPH % 20.5 % (20.0-51.0); MEAN CELL VOLUME 78 fl (80.0-100.0); MEAN CORPUSCULAR HEMOGLOBIN 25 pg (27-31); MEAN CORPUSCULAR HGB CONC 32 g/dl (33.0-37.0); MEAN PLATELET VOLUME 11.1 fl (7.4-10.4); MONO # 0.6 K/mm3 (0.1-0.6); MONO % 4.2 % (1.7-9.3); PLATELET COUNT 253 K/mm3 (130-400); RED BLOOD COUNT 5.54 M/mm3 (4.10-5.30); REDCELL DISTRIBUTION WIDTH-CV 14.6 % (11.5-14.5)
[2023-11-17 22:28] LABS: ALANINE AMINOTRANSFERASE 33 U/L (0-55); ALBUMIN 3.3 g/dL (3.5-5.0); ALKALINE PHOSPHATASE 123 U/L (40-150); ANION GAP 15 mmol/L (7-16); AST,SGOT 28 U/L (5-34); BILIRUBIN,TOTAL 0.4 mg/dL (0.2-1.2); BLOOD UREA NITROGEN 9 mg/dL (7-19); CALCIUM 9.4 mg/dL (8.4-10.2); CHLORIDE 104 mEq/L (98-107); CREATININE, serum 0.77 mg/dL (0.57-1.11); GLUCOSE 87 mg/dL (70-99); POTASSIUM 3.3 mEq/L (3.5-4.5); SODIUM 141 mEq/L (136-145); TOTAL PROTEIN 7.6 g/dl (6.2-8.1)
[2023-11-17] MEDS ORDERED: D5NS 1,000 ML IV ONE (22:30)
[2023-11-17 22:34] LABS: TROPONIN-I < 0.010 ng/mL (0.00-0.033)
[2023-11-17 23:13] LABS: COLLECTION METHOD CLEAN CATCH
[2023-11-17 23:18] LABS: PH 6.5 (5.0-8.5); URINE APPEARANCE CLEAR (CLEAR/HAZY); URINE BLOOD NEGATIVE (NEGATIVE); URINE COLOR YELLOW (YELLOW); URINE GLUCOSE NEGATIVE (NEGATIVE); URINE KETONE TRACE (NEGATIVE); URINE NITRATE NEGATIVE (NEGATIVE); URINE PROTEIN(semi-quant) 1+ (NEGATIVE)
[2023-11-18 00:33] VITALS: BP 108/67; PULSE 105
== END 2023-11-18 00:34 | disposition home or self-care (01) ==
LOC: COL.ER 21:10
PROVIDERS: Nurse Practitioner Primary Care
DX: E11.649 Type 2 diabetes mellitus with hypoglycemia without coma (principal); Z87.891 Personal history of nicotine dependence; Z79.4 Long term (current) use of insulin
CPT/HCPCS: J2405; J7042

== ENCOUNTER 2023-11-29 20:36 | Emergency (ER) | payer MEDICAID ==
[~2023-11-29] VITALS: Ht 185.4 cm; Wt 163.6 kg
[2023-11-29 20:38] VITALS: TEMP 98.2
[2023-11-29] MEDS ORDERED: NS 1,000 ML IV ONE (21:15)
[2023-11-29 21:18] LABS: BASO # 0.1 K/mm3 (0.0-0.2); BASO % 0.6 % (0.0-2.0); EOS # 0.2 K/mm3 (0.0-0.7); EOS % 2.3 % (0.0-4.0); GRAN # 6.9 K/mm3 (1.4-6.5); GRAN % 68.7 % (42.2-75.2); HEMATOCRIT 42.5 % (37.0-47.0); HEMOGLOBIN 13.3 g/dl (12.5-16.0); LYMPH # 2.4 K/mm3 (1.2-3.4); LYMPH % 23.5 % (20.0-51.0); MEAN CELL VOLUME 79 fl (80.0-100.0); MEAN CORPUSCULAR HEMOGLOBIN 25 pg (27-31); MEAN CORPUSCULAR HGB CONC 31 g/dl (33.0-37.0); MEAN PLATELET VOLUME 11.3 fl (7.4-10.4); MONO # 0.4 K/mm3 (0.1-0.6); MONO % 3.7 % (1.7-9.3); PLATELET COUNT 281 K/mm3 (130-400); RED BLOOD COUNT 5.36 M/mm3 (4.10-5.30); REDCELL DISTRIBUTION WIDTH-CV 14.6 % (11.5-14.5)
[2023-11-29 21:37] LABS: ALBUMIN 3.2 g/dL (3.5-5.0); BILIRUBIN,TOTAL 0.4 mg/dL (0.2-1.2); CALCIUM 9.7 mg/dL (8.4-10.2); CREATININE, serum 0.77 mg/dL (0.57-1.11); POTASSIUM 3.5 mEq/L (3.5-4.5); TOTAL PROTEIN 7.5 g/dl (6.2-8.1)
[2023-11-29 22:30] LABS: COLLECTION METHOD CLEAN CATCH
[2023-11-29 22:44] LABS: URINE APPEARANCE CLOUDY (CLEAR/HAZY); URINE BLOOD NEGATIVE (NEGATIVE); URINE COLOR YELLOW (YELLOW); URINE GLUCOSE NEGATIVE (NEGATIVE); URINE KETONE NEGATIVE (NEGATIVE); URINE NITRATE NEGATIVE (NEGATIVE); URINE PROTEIN(semi-quant) 2+ (NEGATIVE)
[2023-11-29 23:30] VITALS: BP 130/80; PULSE 94
== END 2023-11-29 23:30 | disposition home or self-care (01) ==
LOC: COL.ER 20:36
PROVIDERS: Physician Assistant
DX: E11.649 Type 2 diabetes mellitus with hypoglycemia without coma (principal); Z79.4 Long term (current) use of insulin
CPT/HCPCS: J7030